=== PATIENT | female | born 1985 | race Caucasian/White ===

== ENCOUNTER 2016-04-23 00:25 | Emergency (ER) | payer OTHER ==
[~2016-04-23 00:25] MED LIST: ABILIFY5 M1 PO; ACETAMINOPHEN/O1 TAB PO; ADVAIR DISKU 11 UNIT INH; ADVAIR DISKUS 21 DSK INH; ADVAIR HFA 115/1 PUF INH; AFRIN PUMPMIST15 ML NASB; ALBUTEROL0.09 MG/A1 INH; ARIPIPRAZOLE5 M1 PO; CARAFATE 1GM1000 MG PO; CELECOXIB200 MG PO; CIPRO 250MG250 MG PO; CIPRO 500MG (E500 MG PO; CIPRO500 M1 PO; CIPROFLOXACIN250 M2 PO; CYCLOBENZAPRINE10 M1 PO; DELTASONE20 MG PO; DIAZEPAM5 M1 PO; DILAUDID2 M1 PO; ESCITALOPRAM20 MG PO; FIORICET 325 MG1 TAB PO; FLECTOR1 EACH TOP; FLEXERIL10 MG PO; GABAPENTIN100 M2 PO; IBU600 MG PO; LANSOPRAZOLE30 MG PO; LEVAQUIN500 MG PO; LIORESAL 10MG T10 MG PO; MACROBID100 MG PO; MEDROL DOSEPAK1 PAC PO; MOBIC 15MG15 MG PO; MOBIC15 M1 PO; MORPHINE SULFAT15 M3 PO; MOTRIN 600 MG600 MG PO; MOTRIN600 MG PO; MOTRIN800 MG PO; NAPROSYN500 M1 PO; NASONEX0.05 MG/Ac NASB; NASONEX17 GM NASB; NEURONTIN100 MG PO; NEURONTIN300 MG PO; NITROFURANTOIN100 M1 PO; NITROFURANTOIN100 M5 PO; NYSTATIN15 GM TOP; OMEPRAZOLE40 M1 PO; OXYCODONE HCL E20 MG PO; PERCOCET 325 MG1 TA2 PO; PERCOCET 325 MG1 TAB PO; PERCOCET 5-3251 EACH PO; PERCOCET 7.5-31 EACH PO; POLYMYXIN-B/TRI10 ML OS; POLYTRIM O200 GTT/BO TOP; PREDNISONE 20MG20 MG PO; PREDNISONE10 M2 PO; PREDNISONE20 M1 PO; PRILOSEC OTC20 MG PO; PROAIR RESPICL90 MCG PO; PYRIDIUM200 M1 PO; REGLAN10 M1 PO; ROBAXIN-750750 M1 PO; ROBITUSSIN W/CO10 ML PO; VIBRAMYCIN 100100 MG PO; VIBRAMYCIN100 MG PO; VICODIN 300 MG-1 TAB PO; VICODIN5-300 PO; ZITHROMAX Z-PA250 M1 PO; ZOFRAN ODT4 M1 SL; ZOFRAN4 M2 PO
--- NOTE | 2016-04-23 01:07 | ED GI/GU/ABDOMINAL COMPLAINT ---
See Addendum History of Present Illness General Chief Complaint: General Adult Stated Complaint: UTI? Source: patient Exam Limitations: no limitations Vital Signs & Intake/Output Vital Signs & Intake/Output Vital Signs Date Time Temp Pulse Resp B/P Pulse O2 O2 Flow FiO2 Ox Delivery Rate 04/23 0036 98.0 97 18 134/84 94 Room Air Allergies Coded Allergies: adhesive tape (Severe, ANAPHYLAXIS 03/09/16) amoxicillin (Severe, ANAPHYLAXIS 03/09/16) ampicillin (Severe, ANAPHYLAXIS 03/09/16) cefaclor (Severe, ANAPHYLAXIS 03/09/16) clavulanic acid (From AUGMENTIN) (Severe, ANAPHYLAXIS 03/09/16) clindamycin (Severe, ANAPHYLAXIS 03/09/16) latex (Severe, ANAPHYLAXIS 03/09/16) tobramycin (Severe, ANAPHYLAXIS 03/09/16) vancomycin (Severe, ANAPHYLAXIS 03/09/16) meloxicam (Intermediate, FACE SWELLING 03/09/16) morphine (Mild, HIVES 03/09/16) Penicillins (ANAPHYLAXIS 03/09/16) Reconcile Medications Albuterol Sulfate (Proair Respiclick) 90 MCG AER.POW.BA 2 PUFF PO Q4 HRS NEEDED PRN RESPIRATORY (Reported) Aripiprazole (Abilify) 5 MG TAB 1 TAB PO DAILY MENTAL HEALTH (Reported) Ciprofloxacin HCl (Cipro) 500 MG TABLET 1 TAB PO BID URINE/KIDNEY INFECTION Cyclobenzaprine HCl 10 MG TABLET 1 TAB PO TID PRN PAIN (Reported) Diazepam 5 MG TABLET 1 TAB PO BIDP PRN SPASMS (Reported) Escitalopram Oxalate 20 MG TABLET 1 TAB PO DAILY DEPRESSION (Reported) Gabapentin 100 MG CAPSULE 1 CAP PO TID NEUROPATHY (Reported) Metoclopramide HCl (Reglan) 10 MG TABLET 1 TAB PO TID PRN NAUSEA 30 minutes before meals and bedtime Mometasone Furoate (Nasonex) 50 MCG SPRAY.PUMP 2 SPRAY NASB DAILY RHINOSINUSITIS Morphine Sulfate (Morphine Sulfate ER) 15 MG TABLET.ER 1 TAB PO BID PAIN ( Reported) Omeprazole 40 MG CAPSULE.DR 1 CAP PO DAILY GERD Ondansetron (Zofran Odt) 4 MG TAB.RAPDIS 1 TAB SL TID PRN NAUSEA Oxycodone HCl/Acetaminophen (Percocet 7.5-325 MG Tablet) 1 EACH TABLET 1 TAB PO TID PAIN (Reported) Phenazopyridine HCl (Pyridium) 200 MG TABLET 1 TAB PO TID PRN BLADDER SPASMS Phenazopyridine HCl (Pyridium) 100 MG TABLET 1-2 TAB PO TID PRN dysuria Sulfamethoxazole/Trimethoprim (Bactrim Ds Tablet) 800 MG-160 MG TABLET 1 TAB PO BID uti Triage Note: FINISHED RX CIPRO 3 DAYS AGO AGAIN HAS UTI SX Triage Nurses Notes Reviewed? yes ? n Is pt currently ? No Onset: Gradual Duration: day(s): Timing: recent history Quality/Severity: burning Location: urinary urgency Radiation: no radiation Activities at Onset: pt straight cath's Prior Abdominal Problems: none Modifying Factors: Worsens With: urinating. Associated Symptoms: dysuria HPI: 30 yo woman w/ spina bifida who self-catheterizes herself, presents with dysuria. She notes that she completed a course of cipro 3-4 days ago. She notes that she has no fever, chills, abdominal discomfort. She is tolerating fluids. She notes a mild migraine headache and shares that she is due for her routine pain medications. She is otherwise well. Past History Travel History Traveled to [place] past 21 day No Medical History Any Pertinent Medical History? 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 No Review of Systems Review of Systems Constitutional: Reports: no symptoms. EENTM: Reports: no symptoms. Respiratory: Reports: no symptoms. Cardiovascular: Reports: no symptoms. GI: Reports: no symptoms. Genitourinary: Reports: no symptoms. Musculoskeletal: Reports: no symptoms. Skin: Reports: no symptoms. Neurological/Psychological: Reports: no symptoms. Hematologic/Endocrine: Reports: no symptoms. Immunologic/Allergic: Reports: no symptoms. All Other Systems: Reviewed and Negative Physical Exam Physical Exam General Appearance: well developed/nourished, no apparent distress Head: atraumatic, normal appearance Eyes: Bilateral: normal appearance. Ears, Nose, Throat, Mouth: hearing grossly normal Neck: normal inspection, supple, full range of motion Respiratory: normal breath sounds, chest non-tender, no respiratory distress, quiet respiration, lungs clear Cardiovascular: regular rate/rhythm Gastrointestinal: normal bowel sounds, soft, non-tender Back: normal inspection, no vertebral tenderness Extremities: c/w paralysis Neurologic/Psych: no motor/sensory deficits, awake, alert, oriented x 3 Skin: intact, normal color, warm/dry Core Measures ACS in differential dx? No Severe Sepsis Present: No Septic Shock Present: No Progress Differential Diagnosis: UTI/pyelo, vs other Plan of Care: Orders Procedure Date/time Status Add-on Test (ER Only) 04/23 130 Active URINE 04/23 26 Complete URINALYSIS 04/23 26 Complete Current Medications Sig/Jorge A Start time Last Medication Dose Stop Time Status Admin Phenazopyridine HCl 200 MG ONCE ONE 04/235 UNVr (Pyridium) 04/23 014 Promethazine HCl 25 MG ONCE ONE 04/23 0145 UNVr (Phenergen) 04/23 0146 Trimethoprim/ 1 TAB ONCE ONE 04/23 144 UNVr Sulfamethoxazole 04/23 145 (Bactrim DS) Laboratory Tests 04/23/16 0110: Urine Color YEL, Urine Clarity CLDY H, Urine pH 6.0, Ur Specific [place] 1.025, Urine Protein TRACE H, Urine Ketones NEG, Urine Nitrite NEG, Urine Bilirubin NEG, Urine Urobilinogen 2.0 H, Ur Leukocyte Esterase MOD H, Ur Microscopic SEDIMENT EXAMINED, Urine RBC RARE, Urine WBC 25-50 H, Ur Epithelial Cells PACKD H, Urine Hemoglobin TRACE-INTACT, Urine Glucose NEG, Urine Test NEGATIVE Initial ED EKG: none Departure Departure Disposition: HOME OR SELF CARE Condition: Stable Clinical Impression Primary Impression: UTI (urinary tract infection) Referrals: GABRIELLE ALLISON MD (PCP/Family) Referred to [facility] as new patient No Departure Forms: Customer Survey General Discharge Information Prescriptions: Current Visit Scripts Sulfamethoxazole/Trimethoprim (Bactrim Ds Tablet) 1 TAB PO BID #20 TAB Phenazopyridine HCl (Pyridium) 1-2 TAB PO TID PRN dysuria #10 TAB Ref 1 Ondansetron (Zofran Odt) 1 TAB SL TID PRN NAUSEA #10 TAB Ref 4 Comments 04/23/16, 1:48am... pt feeling well... urine suggestive of infection, but she has no fever, is otherwise well. will give bactrim, close follow up advised. urine culture added to orderes. encouraged pt to follow up with her pmd. if not better, given her recurrence, she may require iv abx.... pt wishes to defer blood work and go home.
[2016-04-23] MEDS ORDERED: PYRIDIUM100 M1 PO (01:33)
[2016-04-23] MEDS ORDERED: BACTRIM DS TAB1 EACH PO (01:33)
[2016-04-23] MEDS ORDERED: ZOFRAN ODT4 M1 SL (01:44)
[2016-04-23 01:59] VITALS: BP 142/89
[2016-06-05] MEDS ORDERED: ESCITALOPRAM OX20 MG PO (14:42)
[2016-06-05] MEDS ORDERED: CIPRO500 M1 PO (14:43)
[2016-06-05] MEDS ORDERED: OMEPRAZOLE40 M1 PO (14:44)
[2016-06-05] MEDS ORDERED: VALIUM5 M2 PO (14:44)
[2016-06-05] MEDS ORDERED: IBUPROFEN800 M1 PO (14:47)
== END 2016-04-23 02:05 ==
LOC: ERH 00:25
DX: N39.0 Urinary tract infection, site not specified (principal)
CPT/HCPCS: 81001; 81025; 87086; 87088; 96372; J2550; J3101

== ENCOUNTER 2016-05-09 13:24 | Emergency (ER) | payer OTHER ==
[~2016-05-09] VITALS: Ht 152.4 cm; Wt 99.8 kg
[~2016-05-09 13:24] MED LIST changes: +BACTRIM DS TAB1 EACH PO; +PYRIDIUM100 M1 PO
--- NOTE | 2016-05-09 15:56 | ED CARDIAC/CP/PALPITATIONS ---
History of Present Illness General Chief Complaint: Chest Pain Stated Complaint: CP AND L ARM NUMBNESS Allergies Coded Allergies: adhesive tape (Severe, ANAPHYLAXIS 03/09/16) amoxicillin (Severe, ANAPHYLAXIS 03/09/16) ampicillin (Severe, ANAPHYLAXIS 03/09/16) cefaclor (Severe, ANAPHYLAXIS 03/09/16) clavulanic acid (From AUGMENTIN) (Severe, ANAPHYLAXIS 03/09/16) clindamycin (Severe, ANAPHYLAXIS 03/09/16) latex (Severe, ANAPHYLAXIS 03/09/16) tobramycin (Severe, ANAPHYLAXIS 03/09/16) vancomycin (Severe, ANAPHYLAXIS 03/09/16) meloxicam (Intermediate, FACE SWELLING 03/09/16) morphine (Mild, HIVES 03/09/16) Penicillins (ANAPHYLAXIS 03/09/16) Reconcile Medications Albuterol Sulfate (Proair Respiclick) 90 MCG AER.POW.BA 2 PUFF PO Q4 HRS NEEDED PRN RESPIRATORY (Reported) Aripiprazole (Abilify) 5 MG TAB 1 TAB PO DAILY MENTAL HEALTH (Reported) Cyclobenzaprine HCl 10 MG TABLET 1 TAB PO TID PRN PAIN (Reported) Diazepam 5 MG TABLET 1 TAB PO BIDP PRN SPASMS (Reported) Escitalopram Oxalate 20 MG TABLET 1 TAB PO DAILY DEPRESSION (Reported) Gabapentin 100 MG CAPSULE 1 CAP PO TID NEUROPATHY (Reported) Metoclopramide HCl (Reglan) 10 MG TABLET 1 TAB PO TID N/V (Reported) 30 minutes before meals and bedtime Mometasone Furoate (Nasonex) 50 MCG SPRAY.PUMP 2 SPRAY NASB DAILY RHINOSINUSITIS Morphine Sulfate (Morphine Sulfate ER) 15 MG TABLET.ER 1 TAB PO BID PAIN ( Reported) Omeprazole 40 MG CAPSULE.DR 1 CAP PO DAILY GERD Ondansetron (Zofran Odt) 4 MG TAB.RAPDIS 1 TAB SL TID N/V (Reported) Oxycodone HCl/Acetaminophen (Percocet 7.5-325 MG Tablet) 1 EACH TABLET 1 TAB PO TID PAIN (Reported) Triage Note: 30 Y/O FEMALE C/O CHEST PAIN AND L ARM "NUMBNESS" X 20 MIN. ALSO C/O "DIZZINESS". EKG IN PROGRESS. : No Patient currently breastfeeds: No (SHARRI BANERJEE,SHILA) General Source: patient, family Exam Limitations: no limitations Vital Signs & Intake/Output Vital Signs & Intake/Output Vital Signs Date Time Temp Pulse Resp B/P Pulse O2 O2 Flow FiO2 Ox Delivery Rate 05/09 1938 96.8 76 18 1142/76 94 Room Air 05/09 1727 96 Room Air 05/09 1335 97.7 91 18 117/79 96 Room Air ED Intake and Output 05/10 0000 05/09 1200 Intake Total 0 Output Total Balance 0 Intake, IV 0 Patient 220 lb Weight Triage Nurses Notes Reviewed? yes HPI: This is a 30-year-old female presented to the emergency department with chief complaint of chest pain. She complains of chest pain that started this morning, substernal, 10 out of 10, sharp pain, radiating to left jaw, left neck and left arm. Chest pain is associated with shortness of breath, sweating, diaphoresis. Denies racing of heart. Chest pain associated with dizziness and lightheadedness, nausea. She denied any episode of vomiting. She denied any fever, chills, shortness of breath, racing of heart, vomiting, abdominal pain. 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 see below for history Surgical History Surgical History: none Family History Hx Contributory? Yes (RAMSES HORN MD) Review of Systems Review of Systems Constitutional: Denies: chills, diaphoresis, fever, malaise, weakness, unexplained weight loss. EENTM: Denies: double vision, visual changes. Respiratory: Reports: short of breath. Denies: cough, hemoptysis, orthopnea, sputum production, stridor, wheezing. Cardiovascular: Reports: chest pain. Denies: edema, orthopena, palpitations, peripheral edema, syncope. GI: Reports: nausea. Denies: abdominal pain, diarrhea, distention, vomiting. Genitourinary: Denies: dysuria, frequency, pain. Musculoskeletal: Denies: joint pain. (RAMSES HORN MD) Physical Exam Physical Exam General Appearance: well developed/nourished Head: atraumatic, normal appearance Respiratory: normal breath sounds Cardiovascular: regular rate/rhythm Gastrointestinal: normal bowel sounds, soft, non-tender Extremities: no edema Core Measures ACS in differential dx? No Severe Sepsis Present: No Septic Shock Present: No (RAMSES HORN MD) Progress Hand-Off Endorsed To: ELADIO CHOI MD Endorsed Time: 1706 Pending: labs (SHARRI BANERJEE,SHILA) Differential Diagnosis: PUD/GERD, unstable angina Plan of Care: Orders Procedure Date/time Status TROPONIN LEVEL 05/09 1952 Complete EKG 05/09 1952 Active TROPONIN LEVEL 05/09 160 Complete COMPREHENSIVE METABOLIC PANEL 05/09 1606 Complete CBC WITHOUT DIFFERENTIAL 05/09 160 Complete EKG 05/09 1325 Active Laboratory Tests 05/09/16 2019: Troponin I < 0.01 05/09/16 1758: Anion Gap 11, Estimated GFR > 60, BUN/Creatinine Ratio 25.0, Glucose 76, Calcium 9.3, Total Bilirubin 0.7, AST 29, ALT 29, Alkaline Phosphatase 89, Troponin I < 0.01, Total Protein 7.3, Albumin 4.0, Globulin 3.3, Albumin/Globulin Ratio 1.2, RBC 4.60, MCV 84.1, MCH 27.8, RDW 15.3 H, MPV 6.0 L, Gran % 63.0, Lymphocytes % 29.6, Monocytes % 5.0, Eosinophils % 1.9, Basophils % 0.5, Absolute Granulocytes 3.5, Absolute Lymphocytes 1.7, Absolute Monocytes 0.3, Absolute Eosinophils 0.1, Absolute Basophils 0, PUBS MCHC 33.1 Initial ED EKG: normal axis, normal intervals, normal p-waves, normal QRS complex, normal sinus rhythm, NSR (RAMSES HORN MD) Diagnostic Imaging: Viewed by Me: Radiology Read. Discussed w/RAD: Radiology Read. CXR Impression: PATIENT: HUGO NIELSEN PRESENT AGE: 30 PATIENT ACCOUNT NO: [id number] : 86 LOCATION: [facility] ORDERING PHYSICIAN: SHILA SABILLON MD SERVICE DATE: 05/09/16 EXAM TYPE: RAD - XRY -CHEST XRAY, PA AND LATERAL EXAMINATION: XR CHEST CLINICAL INFORMATION: Chest pain. Shortness of breath. COMPARISON: Chest x-ray 02/10/2016 TECHNIQUE: PA and lateral views of the chest were obtained. FINDINGS: Howell rods in dorsal spine. Ventriculoperitoneal shunt catheter over the right chest. Lungs are clear. No pulmonary vascular congestion or pleural effusion. Cardiac and mediastinal contour are normal. Heart size is normal. IMPRESSION: No acute abnormality of the chest. DICTATED BY: TABATHA LANGSTON MD DATE/TIME DICTATED:1649 PLUMBING ASSEMBLER:HUSSEIN DATE/TIME TRANSCRIBED:05/09/161649 CONFIDENTIAL, DO NOT COPY WITHOUT APPROPRIATE AUTHORIZATION. <Electronically signed in Other Vendor System> SIGNED BY: TABATHA LANGSTON MD 05/09/161654 ([facility]) Comments: 05/09/2016 6:01:17 PM patient signed out to me by Dr. Sabillon. Chest pain evaluation ongoing. 05/09/2016 8:23:16 PM patient signed out to Dr. Guerra. (JIMBO BANERJEE,ELADIO Cardona) Departure Departure Condition: Stable Referrals: GABRIELLE ALLISON MD (PCP/Family) Departure Forms: Customer Survey General Discharge Information Resident Co-Sign Statement Statement: ED Attending supervision documentation- [X] I saw and evaluated the patient. I have also reviewed all the pertinent lab results and diagnostic results. I agree with the findings and the plan of care as documented in the Resident's documentation. [X] I have reviewed the ED Record and agree with the Resident's documentation. [] Additions or exceptions (if any) to the Resident's note and plan are summarized below: [] (SHARRI BANERJEE,SHILA) Departure Disposition: HOME OR SELF CARE Clinical Impression Primary Impression: Chest pain Comments 05/09/2016 7:10:29 PM This patient was not seen by DENISE Abernathy ([facility]) Departure Additional Instructions: FOLLOW UP WITH DR. ESTEFANY TURNER IF SYMPTOMS WORSEN OR FOR ANY CONCERNS (SHAWANDA BANERJEE,SHIRA Link) Critical Care Note Critical Care Note Critical Care Time: non-applicable (SHARRI BANERJEE,SHILA) Critical Care Note Critical Care Time: 30-74 min (RAMSES HORN MD) ED Attending Observation Initial Observation Note: I have seen and personally examined HUGO NIELSEN on 05/09/16 at 1712. I agree with the current emergency department documentation. The disposition (admission or discharge) is uncertain at this time, she needs a period of observation for the following reason(s): The ED Nurse caring for this patient has been personally informed as to what the patient is being observed for. (RAMSES HORN MD)
--- NOTE | 2016-05-09 16:55 | RADIOLOGY REPORT ---
EXAMINATION: XR CHEST CLINICAL INFORMATION: Chest pain. Shortness of breath. COMPARISON: Chest x-ray 02/10/2016 TECHNIQUE: PA and lateral views of the chest were obtained. FINDINGS: Howell rods in dorsal spine. Ventriculoperitoneal shunt catheter over the right chest. Lungs are clear. No pulmonary vascular congestion or pleural effusion. Cardiac and mediastinal contour are normal. Heart size is normal. IMPRESSION: No acute abnormality of the chest.
[2016-05-09 18:10] LABS: ABSOLUTE BASOPHIL COUNT 0 /CUMM (0.0-0.2); ABSOLUTE EOSINOPHIL COUNT 0.1 /CUMM (0.0-0.7); ABSOLUTE GRANULOCYTE CT 3.5 /CUMM (1.4-6.5); ABSOLUTE LYMPH COUNT 1.7 /CUMM (1.2-3.4); ABSOLUTE MONOCYTE COUNT 0.3 /CUMM (0.10-0.60); BASOPHIL % 0.5 % (0.0-2.0); EOSINOPHIL % 1.9 % (0-5); HEMATOCRIT 38.7 % (37-47); MEAN CORPUSCULAR HGB 27.8 PG (27.0-31.0); MEAN CORPUSCULAR HGB CONC 33.1 G/DL (33.0-37.0); MEAN CORPUSCULAR VOLUME 84.1 FL (81.0-99.0); PLATELET COUNT 257 /CUMM (130-400); RBC DISTRIBUTION WIDTH 15.3 % (11.5-14.5); WHITE BLOOD CELL COUNT 5.6 /CUMM (4.8-10.8)
[2016-05-09] MEDS ORDERED: REGLAN10 M1 PO (19:20)
[2016-05-09] MEDS ORDERED: ZOFRAN ODT4 M1 SL (19:20)
[2016-05-09 19:38] VITALS: BP 1142/76
[2016-06-05] MEDS ORDERED: ESCITALOPRAM OX20 MG PO (14:42)
[2016-06-05] MEDS ORDERED: CIPRO500 M1 PO (14:43)
[2016-06-05] MEDS ORDERED: VALIUM5 M2 PO (14:44)
[2016-06-05] MEDS ORDERED: OMEPRAZOLE40 M1 PO (14:44)
[2016-06-05] MEDS ORDERED: IBUPROFEN800 M1 PO (14:47)
== END 2016-05-09 21:44 ==
LOC: ERH 13:24
PROVIDERS: Emergency Medicine
DX: R07.9 Chest pain, unspecified (principal); R20.0 Anesthesia of skin; R42 Dizziness and giddiness; M54.2 Cervicalgia; R11.0 Nausea
CPT/HCPCS: 93005; 93010; 96372; J1885

== ENCOUNTER 2016-06-02 13:08 | Emergency (ER) | payer OTHER ==
[~2016-06-02] VITALS: Ht 152.4 cm; Wt 99.8 kg
[2016-06-02] MEDS ORDERED: HYDROXYZINE HCL25 M2 PO (13:39)
--- NOTE | 2016-06-02 14:01 | ED DYSPNEA/ASTHMA COMPLAINT ---
History of Present Illness General Chief Complaint: General Adult Stated Complaint: "WANTS A NEBULIZER" Source: patient Exam Limitations: no limitations Vital Signs & Intake/Output Vital Signs & Intake/Output Vital Signs Date Time Temp Pulse Resp B/P Pulse O2 O2 Flow FiO2 Ox Delivery Rate 06/02 1423 98.0 74 106/78 06/02 1352 98 06/02 1338 Room Air Room Air 06/02 1321 98.1 78 20 100/80 96 Room Air Allergies Coded Allergies: adhesive tape (Severe, ANAPHYLAXIS 06/02/16) amoxicillin (Severe, ANAPHYLAXIS 06/02/16) ampicillin (Severe, ANAPHYLAXIS 06/02/16) cefaclor (Severe, ANAPHYLAXIS 06/02/16) clavulanic acid (From AUGMENTIN) (Severe, ANAPHYLAXIS 06/02/16) clindamycin (Severe, ANAPHYLAXIS 06/02/16) latex (Severe, ANAPHYLAXIS 06/02/16) tobramycin (Severe, ANAPHYLAXIS 06/02/16) vancomycin (Severe, ANAPHYLAXIS 06/02/16) meloxicam (Intermediate, FACE SWELLING 06/02/16) morphine (Mild, HIVES 06/02/16) Penicillins (ANAPHYLAXIS 06/02/16) Triage Note: C/O DIFFICULTY BREATHING X 1 WEEK, WORSE TODAY. ALBUTEROL INHALER NOT HELPING. Triage Nurses Notes Reviewed? yes : No Patient currently breastfeeds: No HPI: This patient is a 30-year-old female who presented to the emergency department today accompanied by her significant other for shortness of breath. She reported that the shortness of breath has been intermittent times one week. She denied any palpitations, jaw pain, arm pain, numbness or tingling in her extremities. She reported that she does have asthma, but her inhalers at home have not been working. She denied any fevers, chills, abdominal pain, nausea, vomiting, unilateral leg swelling or erythema, any exogenous estrogen use/ control. The patient reported that she did have a blood clot when she was a baby. No recent trauma. The patient is wheelchair-bound due to spina bifida. (MARIUM RIVERS,MYLENE) Reconcile Medications Albuterol Sulfate (Proair Respiclick) 90 MCG AER.POW.BA 2 PUFF PO Q4 HRS NEEDED PRN RESPIRATORY (Reported) Aripiprazole (Abilify) 5 MG TABLET 1 TAB PO DAILY ANXIETY/DEPRESSION ( Reported) Ciprofloxacin HCl (Cipro) 500 MG TABLET 1 TAB PO BID ANTIBIOTIC (Reported) Diazepam (Valium) 5 MG TABLET 1 TAB PO BID PRN ANXIETY (Reported) Escitalopram Oxalate 20 MG TABLET 1 TAB PO DAILY ANXIETY/DEPRESSION (Reported ) Gabapentin 100 MG CAPSULE 1 CAP PO TID NEUROPATHY (Reported) Hydroxyzine HCl 25 MG TABLET 1 TAB PO TID ANXIETY/DEPRESSION (Reported) Ibuprofen 800 MG TABLET 1 TAB PO BID PAIN (Reported) Methylprednisolone. (Medrol) 4 MG TAB.DS.PK 1 DP PO AD PRN shortness of breath 6 on day 1 then reduce by one tablet daily until gone Metoclopramide HCl (Reglan) 10 MG TABLET 1 TAB PO TID N/V (Reported) 30 minutes before meals and bedtime Mometasone Furoate (Nasonex) 50 MCG SPRAY.PUMP 2 SPRAY NASB DAILY RHINOSINUSITIS Morphine Sulfate (Morphine Sulfate ER) 15 MG TABLET.ER 1 TAB PO BID PAIN ( Reported) Omeprazole 40 MG CAPSULE.DR 1 CAP PO DAILY GERD (Reported) Ondansetron (Zofran Odt) 4 MG TAB.RAPDIS 1 TAB SL TID N/V (Reported) Oxycodone HCl/Acetaminophen (Percocet 7.5-325 MG Tablet) 1 EACH TABLET 1 TAB PO TID PAIN (Reported) (SHARRI BANERJEE,SHILA) Past History Travel History Traveled to [place] past 21 day No Medical History Any Pertinent Medical History? 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 No (MARIUM RIVERS,MYLENE) Review of Systems Review of Systems Constitutional: Reports: no symptoms. EENTM: Reports: no symptoms. Respiratory: Reports: see HPI. Cardiovascular: Reports: no symptoms. GI: Reports: no symptoms. Genitourinary: Reports: no symptoms. Musculoskeletal: Reports: no symptoms. Skin: Reports: no symptoms. Neurological/Psychological: Reports: no symptoms. All Other Systems: Reviewed and Negative (MYLENE CAUSEY PA-C) Physical Exam Physical Exam Respiratory: normal breath sounds, NO WHEEZES, RALES, OR RHONCHI. 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 nO RESPIRATORY DISTRESS. nO ACCESSORY MUSCLE USAGE. nO DECREASED BREATH SOUNDS OR STRIDOR. Comments: Well-developed well-nourished person in no acute distress HEENT: Normal EENT exam, head normocephalic, moist mucous membranes Pupils equally round and reactive to light. Neck: Supple, no lymphadenopathy Back: Normal inspection Cardiovascular: Regular rate and rhythm with no murmurs, rubs, or gallops Abdomen: Soft, nontender and nondistended Extremity: Normal and equal pulses. Neuro: Alert oriented x3, cranial nerves II through XII grossly intact. Skin: No appreciable rash on exposed skin, skin is warm and dry. Psych: Mood and affect is normal Core Measures ACS in differential dx? Yes Severe Sepsis Present: No Septic Shock Present: No (MYLENE CAUSEY PA-C) Progress Differential Diagnosis: asthma, AMI, bronchitis, costochondritis, CHF, COPD, pericarditis, pulmonary embolism, pneumonia, unstable angina Plan of Care: Orders Procedure Date/time Status TROPONIN LEVEL 06/02 1419 Complete D-DIMER 06/02 1346 Complete COMPREHENSIVE METABOLIC PANEL 06/02 1346 Complete CBC WITHOUT DIFFERENTIAL 06/02 1346 Complete Current Medications Sig/Jorge A Start time Last Medication Dose Stop Time Status Admin Ketorolac 60 MG ONCE ONE 06/02 1530 UNVr Tromethamine 06/02 1531 (Toradol) Laboratory Tests 06/02/16 1419: Anion Gap 10, Estimated GFR > 60, BUN/Creatinine Ratio 24.0, Glucose 98, Calcium 9.1, Total Bilirubin 0.6, AST 16, ALT 25, Alkaline Phosphatase 91, Troponin I < 0.01, Total Protein 7.0, Albumin 3.9, Globulin 3.1, Albumin/Globulin Ratio 1.3, D-Dimer < 200, CBC w Diff NO MAN DIFF REQ, RBC 4.51, MCV 81.8, MCH 28.1, RDW 14.7 H, MPV 5.7 L, Gran % 60.9, Lymphocytes % 30.8, Monocytes % 6.2, Eosinophils % 1.8, Basophils % 0.3, Absolute Granulocytes 3.8, Absolute Lymphocytes 1.9, Absolute Monocytes 0.4, Absolute Eosinophils 0.1, Absolute Basophils 0, PUBS MCHC 34.3 06/02/16 1402: Troponin I Cancelled Initial ED EKG: none Comments: 06/02/2016 3:20:45 PM: I was at the patient's bedside for reevaluation. Updated her on her laboratory results. D-dimer not elevated. Troponin I elevated. No increase in white blood cell count. Patient received a DuoNeb treatment. Discussed with this patient and importance of holding up with her airbrush painter and primary care physician. She is receiving an IM shot of Toradol here in the emergency department. The patient's boyfriend reported that she does have a component of anxiety and thinks that this may be what is causing her difficulty breathing. They refused chest x-ray at this time due to, "a lot of radiation over the last week." (MYLENE CAUSEY PA-C) Departure Departure Disposition: HOME OR SELF CARE Condition: Stable Clinical Impression Primary Impression: Shortness of breath Referrals: ESTEFANY BANERJEE,GABRIELLE (PCP/Family) Additional Instructions: Take Medrol Dosepak as prescribed. Please follow up with both your airbrush painter and primary care physician. Return to the emergency department for any worsening symptoms or concerns. Departure Forms: Customer Survey General Discharge Information Prescriptions: Current Visit Scripts Methylprednisolone. (Medrol) 1 DP PO AD PRN shortness of breath #1 DP 6 on day 1 then reduce by one tablet daily until gone (MYLENE CAUSEY PA-C) PA/STRATEGIES ANALYST Co-Sign Statement Statement: ED Attending supervision documentation- [] I saw and evaluated the patient. I have also reviewed all the pertinent lab results and diagnostic results. I agree with the findings and the plan of care as documented in the PA's/STRATEGIES ANALYST's documentation. [X] I have reviewed the ED Record and agree with the PA's/STRATEGIES ANALYST's documentation. [] Additions or exceptions (if any) to the PAs/STRATEGIES ANALYST's note and plan are summarized below: [] (SHARRI BANERJEE,SHILA) Critical Care Note Critical Care Note Critical Care Time: non-applicable (MYLENE ACUSEY PA-C)
[2016-06-02 14:23] VITALS: BP 106/78
[2016-06-02 14:28] LABS: ABSOLUTE BASOPHIL COUNT 0 /CUMM (0.0-0.2); ABSOLUTE EOSINOPHIL COUNT 0.1 /CUMM (0.0-0.7); ABSOLUTE GRANULOCYTE CT 3.8 /CUMM (1.4-6.5); ABSOLUTE LYMPH COUNT 1.9 /CUMM (1.2-3.4); ABSOLUTE MONOCYTE COUNT 0.4 /CUMM (0.10-0.60); BASOPHIL % 0.3 % (0.0-2.0); EOSINOPHIL % 1.8 % (0-5); GRANULOCYTE % 60.9 % (42.2-75.2); HEMATOCRIT 36.9 % (37-47); MEAN CORPUSCULAR HGB 28.1 PG (27.0-31.0); MEAN CORPUSCULAR HGB CONC 34.3 G/DL (33.0-37.0); MEAN CORPUSCULAR VOLUME 81.8 FL (81.0-99.0); MEAN PLATELET VOLUME 5.7 FL (7.4-10.4); PLATELET COUNT 231 /CUMM (130-400); RBC DISTRIBUTION WIDTH 14.7 % (11.5-14.5); RED BLOOD CELL CT 4.51 /CUMM (4.20-5.40); WHITE BLOOD CELL COUNT 6.3 /CUMM (4.8-10.8)
[2016-06-02] MEDS ORDERED: MEDROL4 M2 PO (15:23)
[2016-06-05] MEDS ORDERED: ESCITALOPRAM OX20 MG PO (14:42)
[2016-06-05] MEDS ORDERED: CIPRO500 M1 PO (14:43)
[2016-06-05] MEDS ORDERED: OMEPRAZOLE40 M1 PO (14:44)
[2016-06-05] MEDS ORDERED: VALIUM5 M2 PO (14:44)
[2016-06-05] MEDS ORDERED: IBUPROFEN800 M1 PO (14:47)
== END 2016-06-02 15:41 ==
LOC: ERH 13:08
PROVIDERS: Physician Assistant
DX: R06.02 Shortness of breath (principal); Q05.9 Spina bifida, unspecified
CPT/HCPCS: 1263; 96372; J1885

== ENCOUNTER → 2016-06-06 | Day surgery (SDC) | payer OTHER ==
[~2016-06-06] VITALS: Ht 152.4 cm; Wt 99.8 kg
[~2016-06-06] MED LIST changes: +ALBUTEROL2.5 MG/3 M INH/SOL; +CIPRO250 M1 PO; +ESCITALOPRAM OX20 MG PO; +HYDROXYZINE HCL25 M2 PO; +IBUPROFEN800 M1 PO; +KETOROLAC TROME10 M1 PO; +MEDROL4 M2 PO; +NORCO 5-325 TA1 EACH PO; +NUCYNTA50 M1 PO; +Nebulizer machine; +OXYCODONE-ACET1 EAC1 PO; +PREDNISOLO15 MG/5 M4 PO; +PROAIR HFA8.5 GM INH; +VALIUM5 M2 PO; +nebulizer machine
--- NOTE | 2016-06-06 11:01 | Operative Report ---
Operative/Inv Procedure Report Surgery Date: 06/06/16 Name of Procedure: Right renal ESWL. Fluoroscopy. Pre-Operative Diagnosis: Same Post-Operative Diagnosis: Same Estimated Blood Loss: none Surgeon/Dispatcher Service: NAOMI VALLE MD Anesthesia: moderate sedation Complications: None Operative/Procedure Note Note: The patient was taken to the operating room and placed on the ESWL table in supine position. The patient's right flank was positioned over the table cut- out overlying the dome of the treatment head. Timeout was performed, with the patient awake, in order to confirm the correct identity, side, anesthesia, procedure and other pertinent roxana-operative information. The patient was then anesthesized. Once the patient was adequately sedated, fluoroscopy, as well as Renal ultrasound was used to locate the right renal stone. Renal US was used to confirm the placement of the stone, and measured it to be approximately 6 mm in size at the right renal pelvis. Additionally, renal U/S revealed no hydronephrosis, and no solid tumor. With the stone's position optimized, using AP and oblique fluoroscopy views, the right renal E.S.W.L. was initiated at low energy level. After noting the patient's tolerance to the shockwaves, the intensitiy was ramped up to maximum level. At the end of the procedure, the composition of the right renal stone had changed significantly, indicating the shattering of the renal stone. Of note, a total of 2500 shockwaves were delivered to the stones. The patient tolerated the ESWL procedure well, was awakened, then taken to recovery in satisfactory condition via stretcher. The patient was dischared home with pain medications, diet orders, and intructions to catch fragments by straining the urine. The patient to to have follow-up renal ultrasound and KUB in 1 to 2 weeks, prior to follow-up visit in my office. Discharge Disposition: Same Day Admissions CC: NAOMI VALLE MD
== END ==
LOC: STS 02:23
DX: N20.0 Calculus of kidney (principal); R33.9 Retention of urine, unspecified; J45.909 Unspecified asthma, uncomplicated; Q05.9 Spina bifida, unspecified; Z99.3 Dependence on wheelchair
CPT/HCPCS: 36415; 81025; J2250; J2405

== ENCOUNTER 2016-06-09 19:47 | Emergency (ER) | payer OTHER ==
[~2016-06-09] VITALS: Ht 152.4 cm; Wt 99.8 kg
[~2016-06-09 19:47] MED LIST changes: -ALBUTEROL2.5 MG/3 M INH/SOL; -CIPRO250 M1 PO; -KETOROLAC TROME10 M1 PO; -NORCO 5-325 TA1 EACH PO; -NUCYNTA50 M1 PO; -Nebulizer machine; -OXYCODONE-ACET1 EAC1 PO; -PREDNISOLO15 MG/5 M4 PO; -PROAIR HFA8.5 GM INH; -nebulizer machine
--- NOTE | 2016-06-09 20:18 | ED GI/GU/ABDOMINAL COMPLAINT ---
History of Present Illness General Chief Complaint: General Adult Stated Complaint: PT IS HERE TO CHECK HER RIGHT SIDE IS SWOLLEN Source: patient Exam Limitations: no limitations Vital Signs & Intake/Output Vital Signs & Intake/Output Vital Signs Date Time Temp Pulse Resp B/P Pulse O2 O2 Flow FiO2 Ox Delivery Rate 06/096 98.9 74 16 134/65 98 Room Air 06/09 2008 97.6 91 18 94/56 96 Room Air ED Intake and Output 06/10 0000 06/09 1200 Intake Total 0 Output Total Balance 0 Intake, Oral 0 Patient 220 lb Weight Allergies Coded Allergies: adhesive tape (Severe, ANAPHYLAXIS 06/02/16) amoxicillin (Severe, ANAPHYLAXIS 06/02/16) ampicillin (Severe, ANAPHYLAXIS 06/02/16) cefaclor (Severe, ANAPHYLAXIS 06/02/16) clavulanic acid (From AUGMENTIN) (Severe, ANAPHYLAXIS 06/02/16) clindamycin (Severe, ANAPHYLAXIS 06/02/16) latex (Severe, ANAPHYLAXIS 06/02/16) tobramycin (Severe, ANAPHYLAXIS 06/02/16) vancomycin (Severe, ANAPHYLAXIS 06/02/16) meloxicam (Intermediate, FACE SWELLING 06/02/16) morphine (Mild, HIVES 06/02/16) Penicillins (ANAPHYLAXIS 06/02/16) propofol (GI UPSET 06/09/16) Reconcile Medications Albuterol Sulfate (Proair Respiclick) 90 MCG AER.POW.BA 2 PUFF PO Q4 HRS NEEDED PRN RESPIRATORY (Reported) Aripiprazole (Abilify) 5 MG TABLET 1 TAB PO DAILY ANXIETY/DEPRESSION ( Reported) Ciprofloxacin HCl (Cipro) 250 MG TABLET 1 TAB PO DAILY PROPHYLAXIS (Reported) Ciprofloxacin HCl (Cipro) 500 MG TABLET 1 TAB PO BID ANTIBIOTIC (Reported) Diazepam (Valium) 5 MG TABLET 1 TAB PO BID PRN ANXIETY (Reported) Escitalopram Oxalate 20 MG TABLET 1 TAB PO DAILY ANXIETY/DEPRESSION (Reported ) Gabapentin 100 MG CAPSULE 1 CAP PO TID NEUROPATHY (Reported) Hydroxyzine HCl 25 MG TABLET 1 TAB PO TID ANXIETY/DEPRESSION (Reported) Ibuprofen 800 MG TABLET 1 TAB PO BID PAIN (Reported) Metoclopramide HCl (Reglan) 10 MG TABLET 1 TAB PO TID N/V (Reported) 30 minutes before meals and bedtime Mometasone Furoate (Nasonex) 50 MCG SPRAY.PUMP 2 SPRAY NASB DAILY RHINOSINUSITIS Morphine Sulfate (Morphine Sulfate ER) 15 MG TABLET.ER 1 TAB PO BID PAIN ( Reported) Ondansetron (Zofran Odt) 4 MG TAB.RAPDIS 1 TAB SL TID N/V (Reported) Oxycodone HCl/Acetaminophen (Percocet 7.5-325 MG Tablet) 1 EACH TABLET 1 TAB PO TID PAIN (Reported) Triage Note: PT TO ED C/O RT SIDE ABD SWELLING WITH PAIN TODAY. PT HAD LITHOTRIPSY ON SUNDAY FOR KIDNEY STONE OF SAME SIDE. N/V ON SUNDAY. DR SINGH IN TO SEE PT IN TRIAGE Triage Nurses Notes Reviewed? yes ? n Is pt currently ? No Onset: Gradual Duration: day(s):, waxing and waning Timing: recent history Quality/Severity: moderate Location: right flank Radiation: no radiation Activities at Onset: patient had lithotripsy 3 days ago Prior Abdominal Problems: none Modifying Factors: Worsens With: vomiting. Associated Symptoms: abdominal pain, nausea/vomiting HPI: 30 yo woman s/p right sided lithotripsy 3 days ago, now presents with right sided flank pain. She knows, "it feels like might of a kidney stone there.... They said that a might start getting pain a few days later." She notes nausea but no vomiting or diarrhea or fever. Her boyfriend stated that he was given a prescription for Vicodin that he had not yet filled. She is otherwise well and has no other concerns. Past History Travel History Traveled to [place] past 21 day No Medical History Any Pertinent Medical History? 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 No Review of Systems Review of Systems Constitutional: Reports: no symptoms. EENTM: Reports: no symptoms. Respiratory: Reports: no symptoms. Cardiovascular: Reports: no symptoms. GI: Reports: no symptoms. Genitourinary: Reports: no symptoms. Musculoskeletal: Reports: no symptoms. Skin: Reports: no symptoms. Neurological/Psychological: Reports: no symptoms. Hematologic/Endocrine: Reports: no symptoms. Immunologic/Allergic: Reports: no symptoms. All Other Systems: Reviewed and Negative Physical Exam Physical Exam General Appearance: well developed/nourished, mild distress Head: atraumatic, normal appearance Eyes: Bilateral: normal appearance. Ears, Nose, Throat, Mouth: hearing grossly normal Neck: normal inspection, supple, full range of motion, normal alignment Respiratory: normal breath sounds, chest non-tender, no respiratory distress, quiet respiration, lungs clear Cardiovascular: regular rate/rhythm Gastrointestinal: normal bowel sounds, soft, mild tenderness in right lower quadrant. No rebound no guarding. Back: normal inspection Extremities: normal range of motion Neurologic/Psych: no motor/sensory deficits, awake, alert, oriented x 3 Skin: intact, normal color, warm/dry Core Measures ACS in differential dx? No Severe Sepsis Present: No Septic Shock Present: No Progress Differential Diagnosis: kidney stone, ovarian cyst, UTI/pyelo Plan of Care: Orders Procedure Date/time Status URINALYSIS 06/09 2017 Complete LIPASE 06/09 2017 Complete HEPATIC FUNCTION PANEL 06/09 2017 Complete HUMAN BETA HCG SCREEN 06/09 2017 Complete CBC WITHOUT DIFFERENTIAL 06/09 2017 Complete BASIC METABOLIC PANEL 06/09 2017 Complete AMYLASE 06/09 2017 Complete Laboratory Tests 06/09/16 2213: Urine Color YEL, Urine Clarity HAZY H, Urine pH 6.0, Ur Specific [place] >= 1.030, Urine Protein TRACE H, Urine Ketones NEG, Urine Nitrite NEG, Urine Bilirubin NEG, Urine Urobilinogen 0.2, Ur Leukocyte Esterase SMALL H, Ur Microscopic SEDIMENT EXAMINED, Urine RBC >75 H, Urine WBC 5-10 H, Ur Epithelial Cells MANY H, Urine Mucus MOD H, Urine Hemoglobin LARGE H, Urine Glucose NEG 06/09/16 2102: Anion Gap 14, Estimated GFR > 60, BUN/Creatinine Ratio 22.0, Glucose 105 H, Calcium 9.3, Total Bilirubin 0.6, Direct Bilirubin 0.4, AST 18, ALT 25, Alkaline Phosphatase 74, Total Protein 7.2, Albumin 4.1, Amylase 50, Lipase 103, Total Beta HCG NEGATIVE, CBC w Diff NO MAN DIFF REQ, RBC 4.63, MCV 83.4, MCH 27.6, RDW 14.7 H, MPV 6.4 L, Gran % 63.5, Lymphocytes % 27.6, Monocytes % 5.9, Eosinophils % 2.5, Basophils % 0.5, Absolute Granulocytes 4.4, Absolute Lymphocytes 1.9, Absolute Monocytes 0.4, Absolute Eosinophils 0.2, Absolute Basophils 0, PUBS MCHC 33.1 Diagnostic Imaging: Viewed by Me: CT Scan. Discussed w/RAD: CT Scan. Radiology Impression: abd/pelvic ct... full report below... ovarian cyst noted. no ureteral obstruction. Initial ED EKG: none Comments: PATIENT: HUGO NIELSEN PRESENT AGE: 30 PATIENT ACCOUNT NO: [id number] : 86 LOCATION: [facility] ORDERING PHYSICIAN: ARIANA SINGH MD SERVICE DATE: 06/09/16 EXAM TYPE: CAT - CT ABD & PELVIS W/O IV CONTRAS EXAMINATION: CT ABDOMEN AND PELVIS WITHOUT CONTRAST CLINICAL INFORMATION: Right lower quadrant pain. Patient with recent lithotripsy on right side. COMPARISON: CT dated 03/25/2016. TECHNIQUE: Multidetector volumetric imaging was performed from the superior aspect of the liver through the pubic symphysis. Sagittal and coronal reformatted images were obtained on the technologist's workstation. DLP: 1077.76 mGy-cm FINDINGS: The imaged portions of the lungs are clear. There are no pleural effusions. The liver, adrenal glands, and pancreas are unremarkable on this noncontrast study. There is stable mild splenomegaly. The gallbladder is not clearly visualized. There is no biliary ductal dilatation. A punctate calculus is noted within the right kidney. No ureteral calculi. There is no hydronephrosis. Left renal cortical scarring and volume loss again noted in the upper pole. There is no perinephric stranding. The abdominal aorta is normal in caliber. There is no evidence of a bowel obstruction. No pericolonic inflammatory changes or large bowel wall thickening is seen. The appendix is normal. Spinal fusion rods results in significant beam hardening artifacts. Lower lumbar spinal dysraphism again noted. No acute osseous abnormality is seen. 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 No free air or free fluid is seen. The bladder is partially distended without wall thickening. The uterus is normal. There is a hiatal hernia containing mostly fat. A right ovarian dermoid may be slightly enlarged compared to prior imaging, now measuring 4.6 x 4.5 x 4.3 cm, previously measuring 4.4 x 4.3 x 4.3 cm. A contiguous low-density right ovarian lesion has mildly increased in size, now measuring 3.7 x 3 cm, previously measuring 2.7 x 2.8 cm. No inflammatory changes are seen around the right adnexal lesions. IMPRESSION: Mild interval increase in size of the right ovarian dermoid and indeterminate low density right ovarian lesion which could be further characterized with pelvic sonography or MRI. Otherwise, no acute intra-abdominal or pelvic process. Additional chronic findings as described. Small nonobstructing right renal calculus. No hydronephrosis or obstructing ureteral calculus. DICTATED BY: SHIRA DYKES MD DATE/TIME DICTATED:06/09/162207 CHARM FILTER OPERATOR HELPER:HUSSEIN DATE/TIME TRANSCRIBED:06/09/162207 CONFIDENTIAL, DO NOT COPY WITHOUT APPROPRIATE AUTHORIZATION. <Electronically signed in Other Vendor System> SIGNED BY: SHIRA DYKES MD 2227 Departure Departure Disposition: HOME OR SELF CARE Condition: Stable Clinical Impression Primary Impression: Abdominal pain Secondary Impressions: Ovarian cyst, Renal colic on right side Referrals: GARBIELLE ALLISON MD (PCP/Family) Departure Forms: Customer Survey General Discharge Information Comments Patient feels well after supportive medications. No sign of obstruction or inflammation. Pulse likely assert presents post for suture type pain. Dermoid cyst noted on the ovary. This appears stable dissection due to her abdominal pain. Discussed at great length advised close follow-up
[2016-06-09 21:12] LABS: ABSOLUTE BASOPHIL COUNT 0 /CUMM (0.0-0.2); ABSOLUTE EOSINOPHIL COUNT 0.2 /CUMM (0.0-0.7); ABSOLUTE GRANULOCYTE CT 4.4 /CUMM (1.4-6.5); ABSOLUTE LYMPH COUNT 1.9 /CUMM (1.2-3.4); ABSOLUTE MONOCYTE COUNT 0.4 /CUMM (0.10-0.60); BASOPHIL % 0.5 % (0.0-2.0); EOSINOPHIL % 2.5 % (0-5); GRANULOCYTE % 63.5 % (42.2-75.2); HEMATOCRIT 38.6 % (37-47); MEAN CORPUSCULAR HGB 27.6 PG (27.0-31.0); MEAN CORPUSCULAR HGB CONC 33.1 G/DL (33.0-37.0); MEAN CORPUSCULAR VOLUME 83.4 FL (81.0-99.0); MEAN PLATELET VOLUME 6.4 FL (7.4-10.4); PLATELET COUNT 222 /CUMM (130-400); RBC DISTRIBUTION WIDTH 14.7 % (11.5-14.5); RED BLOOD CELL CT 4.63 /CUMM (4.20-5.40); WHITE BLOOD CELL COUNT 6.9 /CUMM (4.8-10.8)
[2016-06-09] MEDS ORDERED: CIPRO250 M1 PO (21:22)
--- NOTE | 2016-06-09 22:28 | CT SCAN REPORT ---
EXAMINATION: CT ABDOMEN AND PELVIS WITHOUT CONTRAST CLINICAL INFORMATION: Right lower quadrant pain. Patient with recent lithotripsy on right side. COMPARISON: CT dated 03/25/2016. TECHNIQUE: Multidetector volumetric imaging was performed from the superior aspect of the liver through the pubic symphysis. Sagittal and coronal reformatted images were obtained on the technologist's workstation. DLP: 1077.76 mGy-cm FINDINGS: The imaged portions of the lungs are clear. There are no pleural effusions. The liver, adrenal glands, and pancreas are unremarkable on this noncontrast study. There is stable mild splenomegaly. The gallbladder is not clearly visualized. There is no biliary ductal dilatation. A punctate calculus is noted within the right kidney. No ureteral calculi. There is no hydronephrosis. Left renal cortical scarring and volume loss again noted in the upper pole. There is no perinephric stranding. The abdominal aorta is normal in caliber. There is no evidence of a bowel obstruction. No pericolonic inflammatory changes or large bowel wall thickening is seen. The appendix is normal. Spinal fusion rods results in significant beam hardening artifacts. Lower lumbar spinal dysraphism again noted. No acute osseous abnormality is seen. 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 No free air or free fluid is seen. The bladder is partially distended without wall thickening. The uterus is normal. There is a hiatal hernia containing mostly fat. A right ovarian dermoid may be slightly enlarged compared to prior imaging, now measuring 4.6 x 4.5 x 4.3 cm, previously measuring 4.4 x 4.3 x 4.3 cm. A contiguous low-density right ovarian lesion has mildly increased in size, now measuring 3.7 x 3 cm, previously measuring 2.7 x 2.8 cm. No inflammatory changes are seen around the right adnexal lesions. IMPRESSION: Mild interval increase in size of the right ovarian dermoid and indeterminate low density right ovarian lesion which could be further characterized with pelvic sonography or MRI. Otherwise, no acute intra-abdominal or pelvic process. Additional chronic findings as described. Small nonobstructing right renal calculus. No hydronephrosis or obstructing ureteral calculus.
[2016-06-09 22:36] VITALS: BP 134/65
== END 2016-06-09 23:05 ==
LOC: ERH 19:47
PROVIDERS: Pediatrics
DX: N83.201 Unspecified ovarian cyst, right side (principal); N23 Unspecified renal colic
CPT/HCPCS: 74176; 81001; 96361; 96374; 96375; J1200; J1885; J2405

== ENCOUNTER 2016-06-12 20:12 | Emergency (ER) | payer OTHER ==
[~2016-06-12] VITALS: Ht 152.4 cm; Wt 99.8 kg
[~2016-06-12 20:12] MED LIST changes: +CIPRO250 M1 PO
[2016-06-12 20:21] VITALS: BP 139/88
--- NOTE | 2016-06-12 21:36 | ED DYSPNEA/ASTHMA COMPLAINT ---
History of Present Illness General Chief Complaint: Wheezing/Asthma Stated Complaint: ASTHMA Source: patient, family, old records Exam Limitations: no limitations Vital Signs & Intake/Output Vital Signs & Intake/Output Vital Signs Date Time Temp Pulse Resp B/P Pulse O2 O2 Flow FiO2 Ox Delivery Rate 06/12 2149 97 06/12 2020 97.8 85 20 139/88 96 Room Air Allergies Coded Allergies: adhesive tape (Severe, ANAPHYLAXIS 06/02/16) amoxicillin (Severe, ANAPHYLAXIS 06/02/16) ampicillin (Severe, ANAPHYLAXIS 06/02/16) cefaclor (Severe, ANAPHYLAXIS 06/02/16) clavulanic acid (From AUGMENTIN) (Severe, ANAPHYLAXIS 06/02/16) clindamycin (Severe, ANAPHYLAXIS 06/02/16) latex (Severe, ANAPHYLAXIS 06/02/16) tobramycin (Severe, ANAPHYLAXIS 06/02/16) vancomycin (Severe, ANAPHYLAXIS 06/02/16) meloxicam (Intermediate, FACE SWELLING 06/02/16) morphine (Mild, HIVES 06/02/16) Penicillins (ANAPHYLAXIS 06/02/16) propofol (GI UPSET 06/09/16) Reconcile Medications Albuterol Sulfate (Proair Respiclick) 90 MCG AER.POW.BA 2 PUFF PO Q4 HRS NEEDED PRN RESPIRATORY (Reported) Aripiprazole (Abilify) 5 MG TABLET 1 TAB PO DAILY ANXIETY/DEPRESSION ( Reported) Ciprofloxacin HCl (Cipro) 250 MG TABLET 1 TAB PO DAILY PROPHYLAXIS (Reported) Ciprofloxacin HCl (Cipro) 500 MG TABLET 1 TAB PO BID ANTIBIOTIC (Reported) Diazepam (Valium) 5 MG TABLET 1 TAB PO BID PRN ANXIETY (Reported) Escitalopram Oxalate 20 MG TABLET 1 TAB PO DAILY ANXIETY/DEPRESSION (Reported ) Gabapentin 100 MG CAPSULE 1 CAP PO TID NEUROPATHY (Reported) Hydroxyzine HCl 25 MG TABLET 1 TAB PO TID ANXIETY/DEPRESSION (Reported) Ibuprofen 800 MG TABLET 1 TAB PO BID PAIN (Reported) Metoclopramide HCl (Reglan) 10 MG TABLET 1 TAB PO TID N/V (Reported) 30 minutes before meals and bedtime Mometasone Furoate (Nasonex) 50 MCG SPRAY.PUMP 2 SPRAY NASB DAILY RHINOSINUSITIS Morphine Sulfate (Morphine Sulfate ER) 15 MG TABLET.ER 1 TAB PO BID PAIN ( Reported) Ondansetron (Zofran Odt) 4 MG TAB.RAPDIS 1 TAB SL TID N/V (Reported) Oxycodone HCl/Acetaminophen (Percocet 7.5-325 MG Tablet) 1 EACH TABLET 1 TAB PO TID PAIN (Reported) Triage Note: PT TO ED REQUESTING DUONEB TREATMENT S/P WAKING UP FROM A DREAM AND FEELING LIKE SHE COULDN'T BREATHE. O2 SAT 96% ON RA Triage Nurses Notes Reviewed? yes : No Patient currently breastfeeds: No HPI: Patient is a 30 year old female presents complaining of asthma exacerbation. Patient awoke from a nap and felt shortness of breath. Patient used her albuterol inhaler and advair with no improvement. Patient with multiple ED visits with similar symptoms. Patient was seen last week in the emergency department, had a negative d-dimer. Patient is also complaining of right flank pain. History of kidney stones, had lithotripsy last week. Taking percocet with improvement of pain, last dose at 1500 today, and pain is returning. Denies fevers, chest pain, vomiting. Past History Travel History Traveled to [place] past 21 day No Medical History Any Pertinent Medical History? 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 No Review of Systems Review of Systems Constitutional: Denies: chills, fever. EENTM: Reports: no symptoms. Respiratory: Reports: see HPI. Cardiovascular: Denies: chest pain. GI: Reports: abdominal pain (right flank). Genitourinary: Reports: pain. Musculoskeletal: Reports: back pain (chronic). Skin: Reports: no symptoms. Hematologic/Endocrine: Reports: no symptoms. Immunologic/Allergic: Reports: no symptoms. Physical Exam Physical Exam General Appearance: well developed/nourished, alert, awake, obese Head: atraumatic, normal appearance Eyes: Bilateral: normal appearance. Ears, Nose, Throat: hearing grossly normal Neck: normal inspection, supple, full range of motion Respiratory: chest non-tender, no respiratory distress, minimal occasional scattered expiratory wheezing Cardiovascular: regular rate/rhythm Gastrointestinal: right mid abdominal tenderness Neurologic/Psych: awake, alert, oriented x 3 Skin: warm/dry Lymphatic: no anterior cervical gold Core Measures ACS in differential dx? No Severe Sepsis Present: No Septic Shock Present: No Progress Differential Diagnosis: asthma, bronchitis, CHF, COPD, musculoskeletal pain, pulmonary embolism, pneumonia, unstable angina, renal colic, medication seeking Plan of Care: Current Medications Sig/Jorge A Start time Last Medication Dose Stop Time Status Admin Dexamethasone 8 MG ONCE ONE 06/12 2244 UNVr (Decadron) 06/12 2245 Care plan reviewed. Patient with recent diagnosis of kidney stones and lithotripsy, will provide a dose of Toradol and a dose of Percocet for treatment of renal colic. 06/12/160: Patient reports she continues with symptoms of dyspnea. No acute respiratory distress. Oxygen saturation high 90's prior to and after nebulizer treatment. Previous records reviewed. Patient with negative D-dimer 10 days ago. No chest pain, no tachycardia or hypoxia. Labs and imaging deferred secondary to recent work-ups and current clinical condition. (MUKUL WALKER,SARAI) Initial ED EKG: none Departure Departure Disposition: HOME OR SELF CARE Condition: Stable Clinical Impression Primary Impression: Asthma exacerbation Secondary Impressions: Renal colic on right side Referrals: GABRIELLE ALLISON MD (PCP/Family) Additional Instructions: Continue your albuterol inhaler and advair as directed. Continue taking the pain medciation as previously directed. Follow up with your primary doctor and your urologist within 1 week for further evaluation. Return to the ER if worsening of symptoms. Departure Forms: Customer Survey General Discharge Information Critical Care Note Critical Care Note Critical Care Time: non-applicable
== END 2016-06-12 22:40 ==
LOC: ERH 20:12
DX: J45.901 Unspecified asthma with (acute) exacerbation (principal); N23 Unspecified renal colic
CPT/HCPCS: 1263; 96372; J1885

== ENCOUNTER 2016-06-17 12:55 | Emergency (ER) | payer OTHER ==
[~2016-06-17] VITALS: Ht 157.5 cm; Wt 99.8 kg
--- NOTE | 2016-06-17 13:56 | ED GENERAL ADULT ---
History of Present Illness General Chief Complaint: Upper Respiratory Sx/Fever Stated Complaint: "I NEED A BREATHING TREATMENT" Source: patient, family, old records Exam Limitations: no limitations Vital Signs & Intake/Output Vital Signs & Intake/Output Vital Signs Date Time Temp Pulse Resp B/P Pulse O2 O2 Flow FiO2 Ox Delivery Rate 06/17 1428 105 18 118/66 95 Room Air 06/17 1424 Room Air 06/17 1305 97.9 93 20 136/84 97 Room Air Allergies Coded Allergies: adhesive tape (Severe, ANAPHYLAXIS 06/17/16) amoxicillin (Severe, ANAPHYLAXIS 06/17/16) ampicillin (Severe, ANAPHYLAXIS 06/17/16) cefaclor (Severe, ANAPHYLAXIS 06/17/16) clavulanic acid (From AUGMENTIN) (Severe, ANAPHYLAXIS 06/17/16) clindamycin (Severe, ANAPHYLAXIS 06/17/16) latex (Severe, ANAPHYLAXIS 06/17/16) tobramycin (Severe, ANAPHYLAXIS 06/17/16) vancomycin (Severe, ANAPHYLAXIS 06/17/16) meloxicam (Intermediate, FACE SWELLING 06/17/16) morphine (Mild, HIVES 06/17/16) Penicillins (ANAPHYLAXIS 06/17/16) propofol (GI UPSET 06/17/16) Reconcile Medications Albuterol Sulfate (Proair Respiclick) 90 MCG AER.POW.BA 2 PUFF PO Q4 HRS NEEDED PRN RESPIRATORY (Reported) Aripiprazole (Abilify) 5 MG TABLET 1 TAB PO DAILY ANXIETY/DEPRESSION ( Reported) Ciprofloxacin HCl (Cipro) 250 MG TABLET 1 TAB PO DAILY PROPHYLAXIS (Reported) Ciprofloxacin HCl (Cipro) 500 MG TABLET 1 TAB PO BID ANTIBIOTIC (Reported) Diazepam (Valium) 5 MG TABLET 1 TAB PO BID PRN ANXIETY (Reported) Escitalopram Oxalate 20 MG TABLET 1 TAB PO DAILY ANXIETY/DEPRESSION (Reported ) Gabapentin 100 MG CAPSULE 1 CAP PO TID NEUROPATHY (Reported) Gabapentin 100 MG CAPSULE 1 CAP PO TID pain Hydroxyzine HCl 25 MG TABLET 1 TAB PO TID ANXIETY/DEPRESSION (Reported) Ibuprofen 800 MG TABLET 1 TAB PO BID PAIN (Reported) Metoclopramide HCl (Reglan) 10 MG TABLET 1 TAB PO TID N/V (Reported) 30 minutes before meals and bedtime Mometasone Furoate (Nasonex) 50 MCG SPRAY.PUMP 2 SPRAY NASB DAILY RHINOSINUSITIS Morphine Sulfate (Morphine Sulfate ER) 15 MG TABLET.ER 1 TAB PO BID PAIN ( Reported) Ondansetron (Zofran Odt) 4 MG TAB.RAPDIS 1 TAB SL TID N/V (Reported) Oxycodone HCl/Acetaminophen (Percocet 7.5-325 MG Tablet) 1 EACH TABLET 1 TAB PO TID PAIN (Reported) Triage Note: TRIAGE: PT TO ER WITH C/C DIFFICULTY BREATHING AND "CATCHING HER BREATH" SINCE YESTERDAY. REPORTS NONPRODUCTIVE COUGH. AFEBRILE. USING OWN INHALERS WITH NO RELIEF NOTED. R/A SATS 97% AT TRIAGE, SKIN COLOR GOOD, SPEAKING IN COMPLETE SENTENCES. Triage Nurses Notes Reviewed? yes : No Patient currently breastfeeds: No HPI: Patient is a 30 year old female presents complaining of nonproductive cough, dyspnea, and chest wall pain. Symptoms onset yesterday evening. Patient using her albuterol inhaler with no improvement. Patient has been seen in the ED multiple times for similar complaints, seen 2 days ago. Pain in the chest is a burning sensation, worsens with cough and palpation. Denies fevers. Patient reports she takes Gabapentin for her pain, but recently ran out. (SARAI WRIGHT) Past History Travel History Traveled to [place] past 21 day No Medical History Any Pertinent Medical History? 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 No (SARAI WRIGHT) Review of Systems Review of Systems Constitutional: Denies: chills, fever. EENTM: Reports: no symptoms. Respiratory: Reports: cough, short of breath, wheezing (none currently). Cardiovascular: Reports: chest pain. Denies: syncope. GI: Reports: abdominal pain (right flank). Musculoskeletal: Reports: no symptoms. Skin: Reports: no symptoms. Neurological/Psychological: Reports: no symptoms. Hematologic/Endocrine: Reports: no symptoms. Immunologic/Allergic: Reports: no symptoms. (SARAI WRIGHT) Physical Exam Physical Exam General Appearance: well developed/nourished, alert, awake, obese Head: atraumatic, normal appearance Eyes: Bilateral: normal appearance, PERRL, EOMI. Ears, Nose, Throat: hearing grossly normal Neck: normal inspection, supple, full range of motion Respiratory: normal breath sounds, no respiratory distress, lungs clear, midsternal chest wall tenderness Cardiovascular: regular rate/rhythm (no murmur) Gastrointestinal: soft, mild right abdominal tenderness Back: normal inspection, normal range of motion Neurologic/Psych: awake, alert, oriented x 3 Skin: intact, normal color, warm/dry Lymphatic: no anterior cervical gold Core Measures ACS in differential dx? No CVA/TIA Diagnosis: No Severe Sepsis Present: No Septic Shock Present: No (SARAI WRIGHT) Progress Differential Diagnoses I considered the following diagnoses in my evaluation of the patient: Plan of Care: Current Medications Sig/Jorge A Start time Last Medication Dose Stop Time Status Admin Ketorolac 30 MG ONCE ONE 06/17 141 UNVr Tromethamine 06/17 141 (Toradol) Discussed with patient obtaining a renal ultrasound given her continued right flank pain. Patient reports that she has an ultrasound scheduled on Sunday and would rather wait until then. Lung exam unremarkable, no current wheezing or rales or rhonchi. Discussed obtaining lung imaging which patient and her would rather defer given her previous x-rays, CT scans, workups. (SARAI WRIGHT) Initial ED EKG: none (SARAI WRIGHT) Departure Departure Time of Disposition: 1412 Disposition: HOME OR SELF CARE Condition: Stable Clinical Impression Primary Impression: Dyspnea Secondary Impressions: Chest wall pain Referrals: GABRIELLE ALLISON MD (PCP/Family) LEONARD BANERJEE,NAOMI GAR MD,KARISSA Additional Instructions: Follow-up on Sunday for your ultrasound and further testing that you have had previously scheduled. Follow up with Dr. Gar for further evaluation of your symptoms, call Sunday. Return to the ER if worsening of symptoms. 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 I have also reviewed all the pertinent lab results and diagnostic results. I agree with the findings and the plan of care as documented in the PA's/TUBER MACHINE OPERATOR's documentation. [X] I have reviewed the ED Record and agree with the PA's/TUBER MACHINE OPERATOR's documentation. [] Additions or exceptions (if any) to the PAs/TUBER MACHINE OPERATOR's note and plan are summarized below: [] (SHAWANDA BANERJEE,SHIRA Link) Critical Care Note Critical Care Note Critical Care Time: non-applicable (SARAI WRIGHT)
[2016-06-17] MEDS ORDERED: GABAPENTIN100 M2 PO (14:17)
[2016-06-17 14:28] VITALS: BP 118/66
== END 2016-06-17 14:30 ==
LOC: ERH 12:55
DX: R06.00 Dyspnea, unspecified (principal); R07.89 Other chest pain
CPT/HCPCS: 96372; J1885

== ENCOUNTER 2016-06-20 15:20 | Emergency (ER) | payer OTHER ==
[~2016-06-20] VITALS: Ht 152.4 cm; Wt 99.8 kg
[2016-06-20 15:38] VITALS: BP 105/75
--- NOTE | 2016-06-20 18:36 | ED GENERAL ADULT ---
History of Present Illness General Chief Complaint: Upper Respiratory Sx/Fever Stated Complaint: SOB,CHEST CONGESTION SEEN LAST WEEK FOR SAME Source: patient, old records Exam Limitations: no limitations Vital Signs & Intake/Output Vital Signs & Intake/Output Vital Signs Date Time Temp Pulse Resp B/P Pulse O2 O2 Flow FiO2 Ox Delivery Rate 06/20 1538 97.8 89 20 105/75 95 Room Air Allergies Coded Allergies: adhesive tape (Severe, ANAPHYLAXIS 06/20/16) amoxicillin (Severe, ANAPHYLAXIS 06/20/16) ampicillin (Severe, ANAPHYLAXIS 06/20/16) cefaclor (Severe, ANAPHYLAXIS 06/20/16) clavulanic acid (From AUGMENTIN) (Severe, ANAPHYLAXIS 06/20/16) clindamycin (Severe, ANAPHYLAXIS 06/20/16) latex (Severe, ANAPHYLAXIS 06/20/16) tobramycin (Severe, ANAPHYLAXIS 06/20/16) vancomycin (Severe, ANAPHYLAXIS 06/20/16) meloxicam (Intermediate, FACE SWELLING 06/20/16) morphine (Mild, HIVES 06/20/16) Penicillins (ANAPHYLAXIS 06/20/16) propofol (GI UPSET 06/20/16) Reconcile Medications Albuterol Sulfate (Proair Respiclick) 90 MCG AER.POW.BA 2 PUFF PO Q4 HRS NEEDED PRN RESPIRATORY (Reported) Aripiprazole (Abilify) 5 MG TABLET 1 TAB PO DAILY ANXIETY/DEPRESSION ( Reported) Ciprofloxacin HCl (Cipro) 250 MG TABLET 1 TAB PO DAILY PROPHYLAXIS (Reported) Cyclobenzaprine HCl 10 MG TABLET 1 TAB PO BID MUSCLE RELAXER (Reported) Diazepam (Valium) 5 MG TABLET 1 TAB PO BID PRN ANXIETY (Reported) Escitalopram Oxalate 20 MG TABLET 1 TAB PO DAILY ANXIETY/DEPRESSION (Reported ) Gabapentin 100 MG CAPSULE 1 CAP PO TID NEUROPATHY (Reported) Hydroxyzine HCl 25 MG TABLET 1 TAB PO TID ANXIETY/DEPRESSION (Reported) Ibuprofen 800 MG TABLET 1 TAB PO BID PAIN (Reported) Metoclopramide HCl (Reglan) 10 MG TABLET 1 TAB PO TID N/V (Reported) 30 minutes before meals and bedtime Mometasone Furoate (Nasonex) 50 MCG SPRAY.PUMP 2 SPRAY NASB DAILY RHINOSINUSITIS Morphine Sulfate (Morphine Sulfate ER) 15 MG TABLET.ER 1 TAB PO BID PAIN ( Reported) Ondansetron (Zofran Odt) 4 MG TAB.RAPDIS 1 TAB SL TID N/V (Reported) Oxycodone HCl/Acetaminophen (Percocet 7.5-325 MG Tablet) 1 EACH TABLET 1 TAB PO TID PAIN (Reported) Triage Note: TRIAGE: PT TO ER C/C SOB, CHEST CONGESTION, COUGH FEELS "LIKE IT'S TRYING TO BE PRODUCTIVE BUT NOTHING IS COMING UP". PAIN TO CHEST, RIBS AND LEFT ARM X 1 WK WELL. USING OWN INHALERS WITH NO RELIEF NOTED. WAS SEEN HERE 3 DAYS AGO FOR SAME. WAS GIVEN PRESCRIPTIONS FOR INHALERS, GABAPENTIN & ATARAX. ADVISED TO F/UP W/DR GAR BUT UNABLE TO GET APPT UNTIL 07/10. STATES WAS TOLD TO RETURN TO ER IF S/S WORSENED. R/A SATS WNL, SPEAKING IN COMPLETE SENTENCES, DOES NOT APPEAR TO BE IN ANY RESPIRATORY DISTRESS AT TRIAGE. Triage Nurses Notes Reviewed? yes : No Patient currently breastfeeds: No HPI: Patient presents for evaluation of right bilateral parasternal chest pain, left upper extremity pain and bilateral rib pains that have been present for at least a week. She was evaluated last week in this emergency Department for the same symptom complex. She states she is also having trouble breathing despite the use of her home inhalers. She states she has had a cough but no phlegm production. Her abdominal pain as a severe sharp stabbing pain that gets worse with palpation and deep inspiration. She is also experiencing a diffuse abdominal pain over the past 2 weeks with no associated fever or cold symptoms, vomiting or changes in bowel habits. She has been suffering mild intermittent nasal congestion. (JIMBO BANERJEE,ELADIO Cardona) Past History Travel History Traveled to [place] past 21 day No Medical History Any Pertinent Medical History? 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 No (ELADIO CHOI MD) Review of Systems Review of Systems Constitutional: Reports: no symptoms. EENTM: Reports: no symptoms. Respiratory: Reports: cough, short of breath. Cardiovascular: Reports: chest pain. GI: Reports: abdominal pain. Genitourinary: Reports: no symptoms. Musculoskeletal: Reports: no symptoms. Skin: Reports: no symptoms. Neurological/Psychological: Reports: no symptoms. Hematologic/Endocrine: Reports: no symptoms. Immunologic/Allergic: Reports: no symptoms. All Other Systems: Reviewed and Negative (ELADIO CHOI MD) Physical Exam Physical Exam General Appearance: SEE BELOW Comments: Though initially comfortable appearing, Patient's chest pain worsened with history taking. Patient began grabbing her chest and grimacing. Gen.: Well-nourished, well-developed, no acute respiratory distress. Overweight. Sitting in her wheelchair. Head: Normocephalic, atraumatic. Eyes: Normal inspection bilaterally Ears: Normal inspection bilaterally Nose: Normal inspection Throat/mouth : Moist mucosa Neck: Supple, full range of motion, no goiter Heart: Regular rate and rhythm, no murmurs rubs or gallops Lungs: Clear to auscultation bilaterally with normal air entry Chest: Parasternal tenderness that reproduces the pain of the chief complaint Back: Normal range of motion, nontender Abdomen: Soft, diffuse tenderness without rebound or guarding., nondistended, normal bowel sounds Extremities: Normal range of motion of the upper extremities grossly, equal radial pulses, no cyanosis clubbing or edema of the upper extremities, paralysis of the lower extremities. Neurologic: Cranial nerves grossly intact, speech is clear Skin: warm and dry Psychiatric: Calm, cooperative, no apparent delusions or hallucinations Core Measures ACS in differential dx? 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 (JIMBO BANERJEEELADIO) Diagnostic Imaging: Viewed by Me: Radiology Read. Discussed w/RAD: Radiology Read. CXR Impression: PATIENT: HUGO NIELSEN PRESENT AGE: 30 PATIENT ACCOUNT NO: [id number] : 86 LOCATION: [facility] ORDERING PHYSICIAN: ELADIO CHOI MD SERVICE DATE: 06/20/16 EXAM TYPE: RAD - XRY-CHEST XRAY, PA AND LATERAL EXAMINATION: XR CHEST CLINICAL INFORMATION: 30- year-old female patient with bronchitis. COMPARISON: Chest x-ray done 2016. TECHNIQUE: 2 views of the chest were obtained. FINDINGS: Spinal rods are in place. The lungs are clear showing no evidence of active disease. There is no pleural effusion. IMPRESSION: No change and unremarkable. No pneumonia. DICTATED BY: PATRICIA KIDD MD DATE/TIME DICTATED:06/20/161936 RECORD LABEL INTERNSHIP: [place] DATE/TIME TRANSCRIBED:06/20/161936 CONFIDENTIAL, DO NOT COPY WITHOUT APPROPRIATE AUTHORIZATION. <Electronically signed in Other Vendor System> SIGNED BY: PATRICIA KIDD MD 06/20/161944 Initial ED EKG: none (SHIRA GUERRA MD) Departure Departure Condition: Stable Referrals: GABRIELLE ALLISON MD (PCP/Family) Departure Forms: Customer Survey General Discharge Information (JIMBO BANERJEE,ELADIO Cardona) Departure Disposition: HOME OR SELF CARE Clinical Impression Primary Impression: Dyspnea Additional Instructions: RETURN NEEDED (SHIRA GUERRA MD) Critical Care Note Critical Care Note Critical Care Time: non-applicable (SHIRA GUERRA MD)
[2016-06-20] MEDS ORDERED: CYCLOBENZAPRINE10 M1 PO (19:14)
--- NOTE | 2016-06-20 19:45 | RADIOLOGY REPORT ---
EXAMINATION: XR CHEST CLINICAL INFORMATION: 30-year-old female patient with bronchitis. COMPARISON: Chest x-ray done 05/09/2016. TECHNIQUE: 2 views of the chest were obtained. FINDINGS: Spinal rods are in place. The lungs are clear showing no evidence of active disease. There is no pleural effusion. IMPRESSION: No change and unremarkable. No pneumonia.
== END 2016-06-20 20:13 ==
LOC: ERH 15:20
DX: R07.89 Other chest pain (principal); R06.00 Dyspnea, unspecified
CPT/HCPCS: 93005; 93010; 96372; J1885

== ENCOUNTER 2016-06-30 02:38 | Emergency (ER) | payer OTHER ==
[~2016-06-30] VITALS: Ht 157.5 cm; Wt 99.8 kg
[2016-06-30] MEDS ORDERED: PREDNISONE20 M1 PO (04:14)
[2016-06-30] MEDS ORDERED: Nebulizer machine (04:14)
[2016-06-30] MEDS ORDERED: ALBUTEROL2.5 MG/3 M INH/SOL (04:14)
--- NOTE | 2016-06-30 04:15 | ED DYSPNEA/ASTHMA COMPLAINT ---
History of Present Illness General Chief Complaint: Wheezing/Asthma Stated Complaint: " I NEED A BREATHING TREATMENT OR TWO" PER PT 98% Source: patient, family, old records Exam Limitations: no limitations Vital Signs & Intake/Output Vital Signs & Intake/Output Vital Signs Date Time Temp Pulse Resp B/P Pulse O2 O2 Flow FiO2 Ox Delivery Rate 06/30 0328 96 06/30 0256 97.0 124 16 99 Room Air Allergies Coded Allergies: adhesive tape (Severe, ANAPHYLAXIS 06/20/16) amoxicillin (Severe, ANAPHYLAXIS 06/20/16) ampicillin (Severe, ANAPHYLAXIS 06/20/16) cefaclor (Severe, ANAPHYLAXIS 06/20/16) clavulanic acid (From AUGMENTIN) (Severe, ANAPHYLAXIS 06/20/16) clindamycin (Severe, ANAPHYLAXIS 06/20/16) latex (Severe, ANAPHYLAXIS 06/20/16) tobramycin (Severe, ANAPHYLAXIS 06/20/16) vancomycin (Severe, ANAPHYLAXIS 06/20/16) meloxicam (Intermediate, FACE SWELLING 06/20/16) morphine (Mild, HIVES 06/20/16) Penicillins (ANAPHYLAXIS 06/20/16) propofol (GI UPSET 06/20/16) Reconcile Medications Albuterol Sulfate (Proair Respiclick) 90 MCG AER.POW.BA 2 PUFF PO Q4 HRS NEEDED PRN RESPIRATORY (Reported) Aripiprazole (Abilify) 5 MG TABLET 1 TAB PO DAILY ANXIETY/DEPRESSION ( Reported) Ciprofloxacin HCl (Cipro) 250 MG TABLET 1 TAB PO DAILY PROPHYLAXIS (Reported) Cyclobenzaprine HCl 10 MG TABLET 1 TAB PO BID MUSCLE RELAXER (Reported) Diazepam (Valium) 5 MG TABLET 1 TAB PO BID PRN ANXIETY (Reported) Escitalopram Oxalate 20 MG TABLET 1 TAB PO DAILY ANXIETY/DEPRESSION (Reported ) Gabapentin 100 MG CAPSULE 1 CAP PO TID NEUROPATHY (Reported) Hydroxyzine HCl 25 MG TABLET 1 TAB PO TID ANXIETY/DEPRESSION (Reported) Ibuprofen 800 MG TABLET 1 TAB PO BID PAIN (Reported) Metoclopramide HCl (Reglan) 10 MG TABLET 1 TAB PO TID N/V (Reported) 30 minutes before meals and bedtime Mometasone Furoate (Nasonex) 50 MCG SPRAY.PUMP 2 SPRAY NASB DAILY RHINOSINUSITIS Morphine Sulfate (Morphine Sulfate ER) 15 MG TABLET.ER 1 TAB PO BID PAIN ( Reported) Ondansetron (Zofran Odt) 4 MG TAB.RAPDIS 1 TAB SL TID N/V (Reported) Oxycodone HCl/Acetaminophen (Percocet 7.5-325 MG Tablet) 1 EACH TABLET 1 TAB PO TID PAIN (Reported) Core Measure Meds Pre-Hospital antibiotics Triage Note: PT TO TRIAGE C/O WORSENING ASTHMA AND CP. PT STATES TROUBLE BREATHING STARTED 4 HOURS AGO. PT HAS HX OF ASTHMA, PT TRIED ALBUTEROL AT HOME BUT STATED IT DID NOT WORK. PT SATING 96% ON RA IN TRIAGE. Triage Nurses Notes Reviewed? yes Onset: Just prior to arrival Duration: hour(s):, continues in ED Timing: recent history Severity: moderate Activities at Onset: rest Prior Episodes/Possible Cause: frequent episodes Associated Symptoms: cough, wheezing LMP (ages 10-50): unknown : No Patient currently breastfeeds: No HPI: 45 hours prior to admission patient complains of increased wheezing not improved with MDI nonproductive cough. She denies fever chills chest pain nausea vomiting diarrhea abdominal pain dysuria rash headache bleeding. Past History Travel History Traveled to [place] past 21 day No Medical History Any Pertinent Medical History? 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 EENT: NONE Cardiovascular: NONE Respiratory: NONE Gastrointestinal: NONE Hepatic: cholelithiasis Renal: nephrolithiasis, SELF CATHETERIZATION neurogenic bladder Musculoskeletal: SPINA BIFIDA BACK PAIN COSTOCHONDRITIS Psychiatric: NONE Endocrine: NONE Blood Disorders: NONE Cancer(s): NONE ARCHEOLOGIST/Reproductive: NONE Other Medical Hx: MECHANICAL ENGINEERING PROFESSOR shunt History of MRSA: No History of VRE: No History of CDIFF: No Surgical History Surgical History: none Psychosocial History Who do you live with Family What is your primary language Romansh Tobacco Use: Current Not Daily Family History Family History, If Any: FATHER FH: lung cancer Hx Contributory? No Review of Systems Review of Systems Constitutional: Reports: no symptoms. EENTM: Reports: no symptoms. Respiratory: Reports: see HPI, cough, short of breath, wheezing. Cardiovascular: Reports: no symptoms. GI: Reports: no symptoms. Genitourinary: Reports: no symptoms. Musculoskeletal: Reports: no symptoms. Skin: Reports: no symptoms. Neurological/Psychological: Reports: no symptoms. Hematologic/Endocrine: Reports: no symptoms. Immunologic/Allergic: Reports: no symptoms. All Other Systems: Reviewed and Negative Physical Exam Physical Exam General Appearance: well developed/nourished, alert, awake, anxious, mild distress Head: atraumatic, normal appearance Eyes: Bilateral: normal appearance, PERRL, EOMI. Ears, Nose, Throat: normal pharynx, normal ENT inspection, hearing grossly normal Neck: normal inspection, supple, full range of motion, no midline tenderness Respiratory: chest non-tender, no respiratory distress, decreased breath sounds, wheezing Cardiovascular: regular rate/rhythm, normal peripheral pulses, norml femoral pulses equa Peripheral Pulses: 4+ carotid (R), 4+ carotid (L) Gastrointestinal: normal bowel sounds, soft, non-tender, no organomegaly Extremities: normal capillary refill, bilateral AKA Neurologic/Psych: no motor/sensory deficits, awake, alert, oriented x 3 Skin: intact, normal color, warm/dry Lymphatic: no anterior cervical gold Core Measures ACS in differential dx? No Severe Sepsis Present: No Septic Shock Present: No Progress Differential Diagnosis: asthma, bronchitis, COPD Plan of Care: Current Medications Sig/Jorge A Start time Last Medication Dose Stop Time Status Admin Acetaminophen 975 MG ONCE ONE 06/30 414 AC (Tylenol) 07/01 415 Initial ED EKG: none Departure Departure Time of Disposition: 411 Disposition: HOME OR SELF CARE Condition: Stable Clinical Impression Primary Impression: Asthma with exacerbation Qualifiers: Asthma severity: mild persistent Qualified Code: J45.31 - Mild persistent asthma with (acute) exacerbation Referrals: GABRIELLE ALLISON MD (PCP/Family) Departure Forms: Customer Survey General Discharge Information Prescriptions: Current Visit Scripts Prednisone 1 TAB PO BID #10 TAB Albuterol Sulfate 1 Vial INH/RADHA Q4P PRN wheezing #50 Vial Ref 5 [Nebulizer machine] #1 UNIT Critical Care Note Critical Care Note Critical Care Time: non-applicable
[2016-06-30 04:22] VITALS: BP 116/80
== END 2016-06-30 04:22 ==
LOC: ERH 02:38
DX: J45.901 Unspecified asthma with (acute) exacerbation (principal); R07.9 Chest pain, unspecified
CPT/HCPCS: 1263

== ENCOUNTER 2016-07-31 05:34 | Emergency (ER) | payer OTHER ==
[~2016-07-31] VITALS: Ht 152.4 cm; Wt 99.8 kg
[~2016-07-31 05:34] MED LIST changes: +ALBUTEROL2.5 MG/3 M INH/SOL; +Nebulizer machine
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
[2016-07-31] MEDS ORDERED: PROAIR HFA8.5 GM INH (05:52)
[2016-07-31] MEDS ORDERED: PREDNISOLO15 MG/5 M4 PO (05:52)
[2016-07-31 06:59] VITALS: BP 135/28
== END 2016-07-31 07:03 ==
LOC: ERH 05:34
DX: J45.901 Unspecified asthma with (acute) exacerbation (principal)
CPT/HCPCS: 1263

== ENCOUNTER 2016-08-06 00:53 | Emergency (ER) | payer OTHER ==
[~2016-08-06] VITALS: Ht 152.4 cm; Wt 99.8 kg
[~2016-08-06 00:53] MED LIST changes: +PREDNISOLO15 MG/5 M4 PO; +PROAIR HFA8.5 GM INH
--- NOTE | 2016-08-06 01:11 | ED GI/GU/ABDOMINAL COMPLAINT ---
History of Present Illness General Chief Complaint: General Adult Stated Complaint: " PER TACO SHELL STUCK IN 'S THROAT" Source: patient, family, old records Exam Limitations: no limitations Vital Signs & Intake/Output Vital Signs & Intake/Output Vital Signs Date Time Temp Pulse Resp B/P Pulse O2 O2 Flow FiO2 Ox Delivery Rate 08/06 0430 96.7 18 95 120/80 95 Room Air 08/06 0134 98 Room Air 08/06 0133 98 08/06 0059 99.0 95 20 124/73 98 Room Air Allergies Coded Allergies: adhesive tape (Severe, ANAPHYLAXIS 07/31/16) amoxicillin (Severe, ANAPHYLAXIS 07/31/16) ampicillin (Severe, ANAPHYLAXIS 07/31/16) cefaclor (Severe, ANAPHYLAXIS 07/31/16) clavulanic acid (From AUGMENTIN) (Severe, ANAPHYLAXIS 07/31/16) clindamycin (Severe, ANAPHYLAXIS 07/31/16) latex (Severe, ANAPHYLAXIS 07/31/16) tobramycin (Severe, ANAPHYLAXIS 07/31/16) vancomycin (Severe, ANAPHYLAXIS 07/31/16) meloxicam (Intermediate, FACE SWELLING 07/31/16) morphine (Mild, HIVES 07/31/16) Penicillins (ANAPHYLAXIS 07/31/16) propofol (GI UPSET 07/31/16) Reconcile Medications Albuterol Sulfate (Proair Respiclick) 90 MCG AER.POW.BA 2 PUFF PO Q4 HRS NEEDED PRN RESPIRATORY (Reported) Albuterol Sulfate (Proair Hfa) 90 MCG HFA.AER.AD 2 PUF INH Q4-6 PRN PRN WHEEZE Albuterol Sulfate 2.5 MG/3 ML (0.083 %) VIAL.NEB 1 Vial INH/RADHA Q4P PRN wheezing Aripiprazole (Abilify) 5 MG TABLET 1 TAB PO DAILY ANXIETY/DEPRESSION ( Reported) Ciprofloxacin HCl (Cipro) 250 MG TABLET 1 TAB PO DAILY PROPHYLAXIS (Reported) Cyclobenzaprine HCl 10 MG TABLET 1 TAB PO BID MUSCLE RELAXER (Reported) Diazepam (Valium) 5 MG TABLET 1 TAB PO BID PRN ANXIETY (Reported) Escitalopram Oxalate 20 MG TABLET 1 TAB PO DAILY ANXIETY/DEPRESSION (Reported ) Gabapentin 100 MG CAPSULE 1 CAP PO TID NEUROPATHY (Reported) Hydroxyzine HCl 25 MG TABLET 1 TAB PO TID ANXIETY/DEPRESSION (Reported) Ibuprofen 800 MG TABLET 1 TAB PO BID PAIN (Reported) Metoclopramide HCl (Reglan) 10 MG TABLET 1 TAB PO TID N/V (Reported) 30 minutes before meals and bedtime Mometasone Furoate (Nasonex) 50 MCG SPRAY.PUMP 2 SPRAY NASB DAILY RHINOSINUSITIS Morphine Sulfate (Morphine Sulfate ER) 15 MG TABLET.ER 1 TAB PO BID PAIN ( Reported) [Nebulizer machine] asthma Ondansetron (Zofran Odt) 4 MG TAB.RAPDIS 1 TAB SL TID N/V (Reported) Oxycodone HCl/Acetaminophen (Percocet 7.5-325 MG Tablet) 1 EACH TABLET 1 TAB PO TID PAIN (Reported) Prednisolone 15 MG/5 ML SOLUTION 10 ML PO QDAY ASTHMA Prednisone 20 MG TABLET 1 TAB PO BID asthma Triage Note: PT TO ED C/O A PIECE OF TACO SHELL BEING STUCK IN THROAT FOR 20 MINS. PER , PATIENT WAS EATING A TACO "AND A PIECE JUST WENT DOWN" "WE TRIED DRINKING, SELF INDUCED VOMITTING AND THE HEIMLICK AND IT WOULDN'T COME UP" PT NOT SPEAKING R/T PAIN IN THROAT. IS ABLE TO DRINK WATER Triage Nurses Notes Reviewed? yes ? N Is pt currently ? No Onset: Abrupt Duration: minute(s): (20) Timing: single episode today Location: THROAT/CHEST Radiation: no radiation Modifying Factors: Worsens With: eating, other. HPI: 30 year old female h/o spina bifida, wc bound, who presents to the ER for chief complaint of feeling like she choked on a piece of taco shell. She tried to vomit it up at home. Has been able to tolerate saliva and fludis since. Past History Travel History Traveled to [place] past 21 day No Medical History Any Pertinent Medical History? 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 No Review of Systems Review of Systems Constitutional: Denies: chills, fever. EENTM: Reports: no symptoms. Respiratory: Reports: short of breath. Denies: cough. Cardiovascular: Reports: chest pain. GI: Reports: no symptoms. Genitourinary: Reports: no symptoms. Musculoskeletal: Reports: neck pain. Skin: Reports: no symptoms. Neurological/Psychological: Reports: no symptoms. Hematologic/Endocrine: Denies: bruising, bleeding. Immunologic/Allergic: Reports: no symptoms. All Other Systems: Reviewed and Negative Physical Exam Physical Exam General Appearance: well developed/nourished, alert, awake, mild distress, obese Head: atraumatic, normal appearance Eyes: Bilateral: PERRL. Ears, Nose, Throat, Mouth: hearing grossly normal, moist mucous membrane, NORMAL OROPHARYNX Neck: normal inspection, supple, full range of motion, NO STRIDOR Respiratory: normal breath sounds, chest non-tender, no respiratory distress, NO WHEEZING Gastrointestinal: soft, non-tender Extremities: normal range of motion Neurologic/Psych: awake, alert, oriented x 3, WC BOUND Skin: intact, normal color, warm/dry Core Measures ACS in differential dx? No Severe Sepsis Present: No Septic Shock Present: No Progress Differential Diagnosis: FOOD BOLUS, ASPIRATION, ESOPHAGEAL TEAR Plan of Care: Orders Procedure Date/time Status RT ED ORDERS 08/06 112 Active 3 AM STILL C/O PAIN. TYLENOL #3 GIVEN. FEELS SOMEWHAT BETTER AFTER NEB TREATMENT. SOFT TISSUE NECK ORDERED. 4:45 AM ROSEMARIE CALLED - WILL SPEED UP READ. (SHARRI BANERJEE,SHILA) Diagnostic Imaging: Viewed by Me: Radiology Read. Discussed w/RAD: Radiology Read. Radiology Impression: PATIENT: HUGO NIELSEN PRESENT AGE: 30 PATIENT ACCOUNT NO: [id number] : 86 LOCATION: [facility] ORDERING PHYSICIAN: SHILA HARRELL MD SERVICE DATE: 08/06/16 EXAM TYPE: RAD - XRY-SOFT TISSUE NECK EXAMINATION: XR SOFT TISSUE NECK CLINICAL INDICATION: Choking on hard taco shell. COMPARISON: No relevant prior imaging available. TECHNIQUE: 2 views of the soft tissue neck were obtained. FINDINGS: No radiodense foreign body is visualized within the [id number] of this examination. The epiglottis is normal. The supraglottic, glottic, and subglottic airways are widely patent. The hypopharynx is unremarkable. No abnormal prevertebral soft tissue swelling. No acute osseous finding. Visualized lung apices are clear. Ventriculoperitoneal shunt tubing extends across the right neck IMPRESSION: Unremarkable soft tissue neck radiographs. DICTATED BY: BE HAYES MD DATE/TIME DICTATED:08/06/16443 CAP SIZER:HUSSEIN DATE /TIME TRANSCRIBED:08/06/16443 CONFIDENTIAL, DO NOT COPY WITHOUT APPROPRIATE AUTHORIZATION. <Electronically signed in Other Vendor System> SIGNED BY: BE HAYES MD 08/06/16 0450 Initial ED EKG: normal intervals Departure Departure Time of Disposition: 452 Disposition: HOME OR SELF CARE Condition: Stable Clinical Impression Primary Impression: Dysphagia Referrals: GABRIELLE ALLISON MD (PCP/Family) Additional Instructions: Soft diet for the next 2 days and advance as tolerated. Follow-up with your doctor in the office as needed. Departure Forms: Customer Survey General Discharge Information
[2016-08-06 04:30] VITALS: BP 120/80
--- NOTE | 2016-08-06 04:50 | RADIOLOGY REPORT ---
EXAMINATION: XR SOFT TISSUE NECK CLINICAL INDICATION: Choking on hard taco shell. COMPARISON: No relevant prior imaging available. TECHNIQUE: 2 views of the soft tissue neck were obtained. FINDINGS: No radiodense foreign body is visualized within the [id number] of this examination. The epiglottis is normal. The supraglottic, glottic, and subglottic airways are widely patent. The hypopharynx is unremarkable. No abnormal prevertebral soft tissue swelling. No acute osseous finding. Visualized lung apices are clear. Ventriculoperitoneal shunt tubing extends across the right neck IMPRESSION: Unremarkable soft tissue neck radiographs.
== END 2016-08-06 05:20 ==
LOC: ERH 00:53
DX: R13.10 Dysphagia, unspecified (principal)
CPT/HCPCS: 1263; 1395; 70360

== ENCOUNTER 2016-08-23 00:05 | Emergency (ER) | payer OTHER ==
[~2016-08-23] VITALS: Ht 152.4 cm; Wt 99.8 kg
--- NOTE | 2016-08-23 00:24 | ED GI/GU/ABDOMINAL COMPLAINT ---
History of Present Illness General Chief Complaint: Abdominal Pain/Flank Pain Stated Complaint: "PER PT STOMACH PAIN, NAUSEA" Source: patient, family, old records Exam Limitations: no limitations Vital Signs & Intake/Output Vital Signs & Intake/Output Vital Signs Date Time Temp Pulse Resp B/P B/P Pulse O2 O2 Flow FiO2 Mean Ox Delivery Rate 08/23 208 97.9 71 20 155/104 100 Room Air 08/23 0021 98.0 84 18 134/83 94 Room Air Allergies Coded Allergies: adhesive tape (Severe, ANAPHYLAXIS 08/23/16) amoxicillin (Severe, ANAPHYLAXIS 08/23/16) ampicillin (Severe, ANAPHYLAXIS 08/23/16) cefaclor (Severe, ANAPHYLAXIS 08/23/16) clavulanic acid (From AUGMENTIN) (Severe, ANAPHYLAXIS 08/23/16) clindamycin (Severe, ANAPHYLAXIS 08/23/16) latex (Severe, ANAPHYLAXIS 08/23/16) tobramycin (Severe, ANAPHYLAXIS 08/23/16) vancomycin (Severe, ANAPHYLAXIS 08/23/16) meloxicam (Intermediate, FACE SWELLING 08/23/16) morphine (Mild, HIVES 08/23/16) Penicillins (ANAPHYLAXIS 08/23/16) propofol (GI UPSET 08/23/16) Reconcile Medications Albuterol Sulfate (Proair Respiclick) 90 MCG AER.POW.BA 2 PUFF PO Q4 HRS NEEDED PRN RESPIRATORY (Reported) Albuterol Sulfate (Proair Hfa) 90 MCG HFA.AER.AD 2 PUF INH Q4-6 PRN PRN WHEEZE Albuterol Sulfate 2.5 MG/3 ML (0.083 %) VIAL.NEB 1 Vial INH/RADHA Q4P PRN wheezing Aripiprazole (Abilify) 5 MG TABLET 1 TAB PO DAILY ANXIETY/DEPRESSION ( Reported) Ciprofloxacin HCl (Cipro) 250 MG TABLET 1 TAB PO DAILY PROPHYLAXIS (Reported) Cyclobenzaprine HCl 10 MG TABLET 1 TAB PO BID MUSCLE RELAXER (Reported) Diazepam (Valium) 5 MG TABLET 1 TAB PO BID PRN ANXIETY (Reported) Escitalopram Oxalate 20 MG TABLET 1 TAB PO DAILY ANXIETY/DEPRESSION (Reported ) Gabapentin 100 MG CAPSULE 1 CAP PO TID NEUROPATHY (Reported) Hydroxyzine HCl 25 MG TABLET 1 TAB PO TID ANXIETY/DEPRESSION (Reported) Ibuprofen 800 MG TABLET 1 TAB PO BID PAIN (Reported) Metoclopramide HCl (Reglan) 10 MG TABLET 1 TAB PO TID N/V (Reported) 30 minutes before meals and bedtime Mometasone Furoate (Nasonex) 50 MCG SPRAY.PUMP 2 SPRAY NASB DAILY RHINOSINUSITIS Morphine Sulfate (Morphine Sulfate ER) 15 MG TABLET.ER 1 TAB PO BID PAIN ( Reported) [Nebulizer machine] asthma Ondansetron (Zofran Odt) 4 MG TAB.RAPDIS 1 TAB SL TID N/V (Reported) Oxycodone HCl/Acetaminophen (Percocet 7.5-325 MG Tablet) 1 EACH TABLET 1 TAB PO TID PAIN (Reported) Prednisolone 15 MG/5 ML SOLUTION 10 ML PO QDAY ASTHMA Prednisone 20 MG TABLET 1 TAB PO BID asthma Triage Note: TRIAGE: PATIENT TO ER FROM HOME W/ GENERAL[facility]ED [facility] OF ABD PAIN 01/30 ACHING X3-4 DAYS. PATIENT REPORTS +NAUSEA, DENIES V/D. PATIENT REPORTS "HAVING REGULAR BM." +DECREASED APPETITE. Triage Nurses Notes Reviewed? yes ? N Is pt currently ? No HPI: Patient presents the emergency room with a 4 day history of diffuse achy abdominal pain. The pain is constant. There are no aggravating or mitigating factors. Positive nausea and dry heaving. No diarrhea. No fevers or chills. Positive anorexia. She rates the pain as 8 out of 10. Past History Travel History Traveled to [place] past 21 day No Medical History Any Pertinent Medical History? 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 No Review of Systems Review of Systems Constitutional: Reports: no symptoms. EENTM: Reports: no symptoms. Respiratory: Reports: no symptoms. Cardiovascular: Reports: no symptoms. GI: Reports: see HPI, abdominal pain, nausea. Genitourinary: Reports: no symptoms. Musculoskeletal: Reports: no symptoms. Skin: Reports: no symptoms. Neurological/Psychological: Reports: no symptoms. Hematologic/Endocrine: Reports: no symptoms. Immunologic/Allergic: Reports: no symptoms. All Other Systems: Reviewed and Negative Physical Exam Physical Exam General Appearance: well developed/nourished, alert, awake, mild distress Head: atraumatic, normal appearance Eyes: Bilateral: PERRL, EOMI. Ears, Nose, Throat, Mouth: hearing grossly normal, DRY MUCOSA Neck: normal inspection, supple, full range of motion Respiratory: normal breath sounds, chest non-tender, no respiratory distress, lungs clear Cardiovascular: regular rate/rhythm, normal peripheral pulses Gastrointestinal: normal bowel sounds, soft, no organomegaly, tenderness ( DIFFUSELY), NO REBOUND OR GUARDING Neurologic/Psych: no motor/sensory deficits, awake, alert, oriented x 3, normal mood/affect Core Measures ACS in differential dx? No Severe Sepsis Present: No Septic Shock Present: No Progress Differential Diagnosis: appendicitis, biliary colic, cholecystitis, gastritis, hepatitis, ischemic bowel, inflamm bowel dis, pancreatitis Plan of Care: Orders Procedure Date/time Status LIPASE 08/24 23 Complete HUMAN BETA HCG SCREEN 08/24 23 Complete COMPREHENSIVE METABOLIC PANEL 08/24 23 Complete CBC WITHOUT DIFFERENTIAL 08/24 23 Complete AMYLASE 08/24 23 Complete Current Medications Sig/Jorge A Start time Last Medication Dose Stop Time Status Admin Promethazine HCl 12.5 MG ONCE ONE 08/23 030 UNVr (Phenergen) 08/23 0301 Laboratory Tests 08/23/16 0110: Anion Gap 14, Estimated GFR > 60, BUN/Creatinine Ratio 20.0, Glucose 85, Calcium 9.1, Total Bilirubin 0.8, AST 23, ALT 36, Alkaline Phosphatase 65, Total Protein 7.1, Albumin 4.1, Globulin 3.0, Albumin/Globulin Ratio 1.4, Amylase 52, Lipase 97, Total Beta HCG NEGATIVE, CBC w Diff NO MAN DIFF REQ, RBC 4.78, MCV 83.2, MCH 28.3, RDW 16.0 H, MPV 7.0 L, Gran % 60.7, Lymphocytes % 30.9, Monocytes % 4.2, Eosinophils % 3.7, Basophils % 0.5, Absolute Granulocytes 3.6, Absolute Lymphocytes 1.8, Absolute Monocytes 0.3, Absolute Eosinophils 0.2, Absolute Basophils 0, PUBS MCHC 34.1 Initial ED EKG: none Departure Departure Disposition: HOME OR SELF CARE Condition: Stable Clinical Impression Primary Impression: Vomiting Referrals: GABRIELLE ALLISON MD (PCP/Family) Additional Instructions: RETURN IF SYMPTOMS WORSEN OR FOR ANY CONCERNS Departure Forms: Customer Survey General Discharge Information Prescriptions: Current Visit Scripts Metoclopramide HCl (Reglan) 1 TAB PO 4 TIMES/DAY PRN NAUSEA #20 TAB 30 minutes before meals and bedtime
[2016-08-23 01:28] LABS: ABSOLUTE BASOPHIL COUNT 0 /CUMM (0.0-0.2); ABSOLUTE EOSINOPHIL COUNT 0.2 /CUMM (0.0-0.7); ABSOLUTE GRANULOCYTE CT 3.6 /CUMM (1.4-6.5); ABSOLUTE LYMPH COUNT 1.8 /CUMM (1.2-3.4); ABSOLUTE MONOCYTE COUNT 0.3 /CUMM (0.10-0.60); BASOPHIL % 0.5 % (0.0-2.0); EOSINOPHIL % 3.7 % (0-5); GRANULOCYTE % 60.7 % (42.2-75.2); HEMATOCRIT 39.7 % (37-47); MEAN CORPUSCULAR HGB 28.3 PG (27.0-31.0); MEAN CORPUSCULAR HGB CONC 34.1 G/DL (33.0-37.0); MEAN CORPUSCULAR VOLUME 83.2 FL (81.0-99.0); PLATELET COUNT 245 /CUMM (130-400); RED BLOOD CELL CT 4.78 /CUMM (4.20-5.40); WHITE BLOOD CELL COUNT 5.9 /CUMM (4.8-10.8)
[2016-08-23] MEDS ORDERED: REGLAN10 M1 PO (02:49)
[2016-08-23 03:22] VITALS: BP 148/84
== END 2016-08-23 03:24 ==
LOC: ERH 00:05
PROVIDERS: Emergency Medicine
DX: R11.10 Vomiting, unspecified (principal)
CPT/HCPCS: 96374; 96375; 96376; J1885; J2405; J2550

== ENCOUNTER 2016-09-14 14:01 | Emergency (ER) | payer OTHER ==
[~2016-09-14] VITALS: Ht 152.4 cm; Wt 99.8 kg
[2016-09-14 14:17] VITALS: BP 114/80
--- NOTE | 2016-09-14 16:18 | ED DYSPNEA/ASTHMA COMPLAINT ---
History of Present Illness General Chief Complaint: Wheezing/Asthma Stated Complaint: ASTHMA FLARE Source: patient, Exam Limitations: no limitations Vital Signs & Intake/Output Vital Signs & Intake/Output Vital Signs Date Time Temp Pulse Resp B/P B/P Pulse O2 O2 Flow FiO2 Mean Ox Delivery Rate 09/14 1701 82 09/14 1611 98 Room Air 09/14 1417 97.3 88 15 114/80 96 Room Air Room Air ED Intake and Output 09/15 0000 09/14 1200 Intake Total Output Total Balance Patient 220 lb Weight Allergies Coded Allergies: adhesive tape (Severe, ANAPHYLAXIS 09/14/16) amoxicillin (Severe, ANAPHYLAXIS 09/14/16) ampicillin (Severe, ANAPHYLAXIS 09/14/16) cefaclor (Severe, ANAPHYLAXIS 09/14/16) clavulanic acid (From AUGMENTIN) (Severe, ANAPHYLAXIS 09/14/16) clindamycin (Severe, ANAPHYLAXIS 09/14/16) latex (Severe, ANAPHYLAXIS 09/14/16) tobramycin (Severe, ANAPHYLAXIS 09/14/16) vancomycin (Severe, ANAPHYLAXIS 09/14/16) meloxicam (Intermediate, FACE SWELLING 09/14/16) morphine (Mild, HIVES 09/14/16) Penicillins (ANAPHYLAXIS 09/14/16) propofol (GI UPSET 09/14/16) Reconcile Medications Albuterol Sulfate (Proair Respiclick) 90 MCG AER.POW.BA 2 PUFF PO Q4 HRS NEEDED PRN RESPIRATORY (Reported) Albuterol Sulfate (Proair Hfa) 90 MCG HFA.AER.AD 2 PUF INH Q4-6 PRN PRN WHEEZE Albuterol Sulfate 2.5 MG/3 ML (0.083 %) VIAL.NEB 1 Vial INH/RADHA Q4P PRN wheezing Aripiprazole (Abilify) 5 MG TABLET 1 TAB PO DAILY ANXIETY/DEPRESSION ( Reported) Ciprofloxacin HCl (Cipro) 250 MG TABLET 1 TAB PO DAILY PROPHYLAXIS (Reported) Cyclobenzaprine HCl 10 MG TABLET 1 TAB PO BID MUSCLE RELAXER (Reported) Diazepam (Valium) 5 MG TABLET 1 TAB PO BID PRN ANXIETY (Reported) Escitalopram Oxalate 20 MG TABLET 1 TAB PO DAILY ANXIETY/DEPRESSION (Reported ) Gabapentin 100 MG CAPSULE 1 CAP PO TID NEUROPATHY (Reported) Hydroxyzine HCl 25 MG TABLET 1 TAB PO TID ANXIETY/DEPRESSION (Reported) Ibuprofen 800 MG TABLET 1 TAB PO BID PAIN (Reported) Methylprednisolone. (Medrol) 4 MG TAB.DS.PK 1 DP PO AD airways 6 on day 1 then reduce by one tablet daily until gone Metoclopramide HCl (Reglan) 10 MG TABLET 1 TAB PO TID N/V (Reported) 30 minutes before meals and bedtime Metoclopramide HCl (Reglan) 10 MG TABLET 1 TAB PO 4 TIMES/DAY PRN NAUSEA 30 minutes before meals and bedtime Mometasone Furoate (Nasonex) 50 MCG SPRAY.PUMP 2 SPRAY NASB DAILY RHINOSINUSITIS Morphine Sulfate (Morphine Sulfate ER) 15 MG TABLET.ER 1 TAB PO BID PAIN ( Reported) [Nebulizer machine] asthma Ondansetron (Zofran Odt) 4 MG TAB.RAPDIS 1 TAB SL TID N/V (Reported) Oxycodone HCl/Acetaminophen (Percocet 7.5-325 MG Tablet) 1 EACH TABLET 1 TAB PO TID PAIN (Reported) Prednisolone 15 MG/5 ML SOLUTION 10 ML PO QDAY ASTHMA Prednisone 20 MG TABLET 1 TAB PO BID asthma Triage Note: PT TO ED FOR C/C OF DIFFICULTY BREATHING FOR THE LAST HOUR. PT TOOK RESCUE INHALER WITHOUT RELIEF. REPORTS RIB PAIN. +NON-PRODUCTIVE COUGH. O2 WNL IN TRIAGE NO ACUTE DISTRESS NOTED. Triage Nurses Notes Reviewed? yes : No Patient currently breastfeeds: No HPI: Patient presents for evaluation of difficulty breathing beginning earlier this morning. Patient has been using her pro-air and Advair inhalers without improvement. She denies any associated fever or cold symptoms but has had a nonproductive cough. She had a recent cardiac catheterization that was normal. She has been seen by a project management intern who suspects an underlying lung disease but no specific diagnosis has been made. It addition the patient is having chest tenderness that worsens with deep inspiration and palpation. This is typical of her dyspneic episodes. Past History Travel History Traveled to [place] past 21 day No Medical History Any Pertinent Medical History? 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 No Review of Systems Review of Systems Constitutional: Reports: no symptoms. EENTM: Reports: no symptoms. Respiratory: Reports: see HPI. Cardiovascular: Reports: no symptoms. GI: Reports: no symptoms. Genitourinary: Reports: no symptoms. Musculoskeletal: Reports: no symptoms. Skin: Reports: no symptoms. Neurological/Psychological: Reports: no symptoms. Hematologic/Endocrine: Reports: no symptoms. Immunologic/Allergic: Reports: no symptoms. All Other Systems: Reviewed and Negative Physical Exam Physical Exam Respiratory: SEE BELOW Comments: Gen.: Well-nourished, well-developed, no acute respiratory distress. Wheelchair -bound. Head: Normocephalic, atraumatic. Eyes: Normal inspection bilaterally Ears: Normal inspection bilaterally Nose: Normal inspection Throat/mouth : Moist mucosa Neck: Supple, full range of motion, no goiter Heart: Regular rate and rhythm, no murmurs rubs or gallops Lungs: Clear to auscultation bilaterally with normal air entry Chest: Bilateral chest tenderness Back: Normal range of motion Abdomen: Soft, nontender, nondistended, normal bowel sounds Extremities: Normal range of motion grossly, equal radial pulses, no cyanosis clubbing or edema of the upper extremities, flaccid lower extremities secondary to paraplegia, right wrist splint as a result of the recent cardiac catheterization Neurologic: Cranial nerves grossly intact, speech is clear Skin: warm and dry Psychiatric: Calm, cooperative, no apparent delusions or hallucinations Core Measures ACS in differential dx? No Severe Sepsis Present: No Septic Shock Present: No Progress Differential Diagnosis: asthma, bronchitis, CHF, COPD, pneumonia Plan of Care: see notes Initial ED EKG: none Comments: 09/14/2016 4:20:36 PM patient's case discussed with Dr. Gonzalez who feels patient may be suffering from reactive airway disease and recommends Medrol Dosepak. 09/14/2016 4:48:13 PM Lena has been evaluated by Dr. Gonzalez in ED who confirms his recommendation of a Medrol Dosepak. He feels pt has an unspecified reactive airway disease. Patient is in agreement with tx. Departure Departure Disposition: HOME OR SELF CARE Condition: Stable Clinical Impression Primary Impression: Reactive airway disease Qualifiers: Asthma severity: mild intermittent Asthma complication type: uncomplicated Qualified Code: J45.20 - Mild intermittent asthma, uncomplicated Referrals: GABRIELLE ALLISON MD (PCP/Family) Additional Instructions: Medrol Dosepak as prescribed. Follow-up with Dr. Gonzalez as discussed. Return if any concerns or sudden worsening. Thank you for choosing the [facility] Department for your care. It was a pleasure to serve you today. Cameron Kelly M.D. [facility] Departure Forms: Customer Survey General Discharge Information Prescriptions: Current Visit Scripts Methylprednisolone. (Medrol) 1 DP PO AD #1 DP 6 on day 1 then reduce by one tablet daily until gone Critical Care Note Critical Care Note Critical Care Time: 30-74 min
[2016-09-14] MEDS ORDERED: NORCO 5-325 TA1 EACH PO (16:22)
[2016-09-14] MEDS ORDERED: KETOROLAC TROME10 M1 PO (16:22)
[2016-09-14] MEDS ORDERED: MEDROL4 M2 PO (16:49)
--- NOTE | 2016-09-14 17:06 | Cons- Pulmonary ---
General Information and HPI Consulting Request Date of Consult: 09/14/16 Requested By: Dr. Vallecillo Reason for Consult: Reactive airway disease exacerbation Source of Information: patient History of Present Illness: 30 year old woman. Known from office. Called by ED for asthma/reactive airways exacerbation. Patient requesting breathing treatment. No sick contacts, no chest pain, no n/v/d/c. Hx of spina bifida. Relatively stable, no obvious wheezing, however diminished breath sounds. Stable for DC. Allergies/Medications Allergies: Coded Allergies: adhesive tape (Severe, ANAPHYLAXIS 09/14/16) amoxicillin (Severe, ANAPHYLAXIS 09/14/16) ampicillin (Severe, ANAPHYLAXIS 09/14/16) cefaclor (Severe, ANAPHYLAXIS 09/14/16) clavulanic acid (From AUGMENTIN) (Severe, ANAPHYLAXIS 09/14/16) clindamycin (Severe, ANAPHYLAXIS 09/14/16) latex (Severe, ANAPHYLAXIS 09/14/16) tobramycin (Severe, ANAPHYLAXIS 09/14/16) vancomycin (Severe, ANAPHYLAXIS 09/14/16) meloxicam (Intermediate, FACE SWELLING 09/14/16) morphine (Mild, HIVES 09/14/16) Penicillins (ANAPHYLAXIS 09/14/16) propofol (GI UPSET 09/14/16) Home Med List: Albuterol Sulfate (Proair Respiclick) 90 MCG AER.POW.BA 2 PUFF PO Q4 HRS NEEDED PRN RESPIRATORY (Reported) Albuterol Sulfate (Proair Hfa) 90 MCG HFA.AER.AD 2 PUF INH Q4-6 PRN PRN WHEEZE Albuterol Sulfate 2.5 MG/3 ML (0.083 %) VIAL.NEB 1 Vial INH/RADHA Q4P PRN wheezing Aripiprazole (Abilify) 5 MG TABLET 1 TAB PO DAILY ANXIETY/DEPRESSION ( Reported) Ciprofloxacin HCl (Cipro) 250 MG TABLET 1 TAB PO DAILY PROPHYLAXIS (Reported) Cyclobenzaprine HCl 10 MG TABLET 1 TAB PO BID MUSCLE RELAXER (Reported) Diazepam (Valium) 5 MG TABLET 1 TAB PO BID PRN ANXIETY (Reported) Escitalopram Oxalate 20 MG TABLET 1 TAB PO DAILY ANXIETY/DEPRESSION (Reported ) Gabapentin 100 MG CAPSULE 1 CAP PO TID NEUROPATHY (Reported) Hydroxyzine HCl 25 MG TABLET 1 TAB PO TID ANXIETY/DEPRESSION (Reported) Ibuprofen 800 MG TABLET 1 TAB PO BID PAIN (Reported) Methylprednisolone. (Medrol) 4 MG TAB.DS.PK 1 DP PO AD airways 6 on day 1 then reduce by one tablet daily until gone Metoclopramide HCl (Reglan) 10 MG TABLET 1 TAB PO TID N/V (Reported) 30 minutes before meals and bedtime Metoclopramide HCl (Reglan) 10 MG TABLET 1 TAB PO 4 TIMES/DAY PRN NAUSEA 30 minutes before meals and bedtime Mometasone Furoate (Nasonex) 50 MCG SPRAY.PUMP 2 SPRAY NASB DAILY RHINOSINUSITIS Morphine Sulfate (Morphine Sulfate ER) 15 MG TABLET.ER 1 TAB PO BID PAIN ( Reported) [Nebulizer machine] asthma Ondansetron (Zofran Odt) 4 MG TAB.RAPDIS 1 TAB SL TID N/V (Reported) Oxycodone HCl/Acetaminophen (Percocet 7.5-325 MG Tablet) 1 EACH TABLET 1 TAB PO TID PAIN (Reported) Prednisolone 15 MG/5 ML SOLUTION 10 ML PO QDAY ASTHMA Prednisone 20 MG TABLET 1 TAB PO BID asthma Review of Systems Comments see HPI pertinent positives and negatives reviewed 18 point discussed see HPI Past History Travel History Traveled to [place] past 21 day No Medical History 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 spouse Primary Language: Yoruba ETOH Use: denies use Illicit Drug Use: denies illicit drug use Living Will? no Functional Ability ADLs Independent: dressing, eating, toileting, bathing. Ambulation: wheel chair Exam & Diagnostic Data Last 24 Hrs of Vital Signs/I&O Vital Signs Date Time Temp Pulse Resp B/P B/P Pulse O2 O2 Flow FiO2 Mean Ox Delivery Rate 09/14 1701 82 09/14 1611 98 Room Air 09/14 1417 97.3 88 15 114/80 96 Room Air Room Air Physical Exam Other Physical Findings: gen awake and alert heent ncat cvs s1, s2 lungs rare rhonchi with diminshed bs at bases abd soft bs+ ext edematous at baselne Last 48 Hrs of Labs/Miguel Ángel: na Assessment/Plan Impression/Plan: Impression 30 year old woman * exacerbation of reactive airway disease Plan -f/u in office -medrol dose freya -continue advair -continue albuterol -joaquin for dc Consult Acknowledgment - Thank you for your consult request.
[2016-10-13] MEDS ORDERED: CHERATUSSIN AC118 M1 PO (10:27)
== END 2016-09-14 17:02 ==
LOC: ERH 14:01
DX: J45.909 Unspecified asthma, uncomplicated (principal)

== ENCOUNTER 2016-10-05 21:16 | Emergency (ER) | payer OTHER ==
[~2016-10-05] VITALS: Ht 154.9 cm; Wt 90.7 kg
[~2016-10-05 21:16] MED LIST changes: +KETOROLAC TROME10 M1 PO; +NORCO 5-325 TA1 EACH PO
[2016-10-05 21:26] VITALS: BP 134/85
[2016-10-05] MEDS ORDERED: NUCYNTA50 M1 PO (21:42)
[2016-10-05] MEDS ORDERED: OXYCODONE-ACET1 EAC1 PO (21:43)
--- NOTE | 2016-10-05 21:52 | ED UPPER/LOWER EXTREMITY COMPL ---
History of Present Illness General Chief Complaint: General Adult Stated Complaint: "SI INJECTION SHOT, L HIP PAIN" PER PT Source: patient Exam Limitations: no limitations Vital Signs & Intake/Output Vital Signs & Intake/Output Vital Signs Date Time Temp Pulse Resp B/P B/P Pulse O2 O2 Flow FiO2 Mean Ox Delivery Rate 10/05 2125 97.2 81 16 134/85 97 Room Air Allergies Coded Allergies: adhesive tape (Severe, ANAPHYLAXIS 09/14/16) amoxicillin (Severe, ANAPHYLAXIS 09/14/16) ampicillin (Severe, ANAPHYLAXIS 09/14/16) cefaclor (Severe, ANAPHYLAXIS 09/14/16) clavulanic acid (From AUGMENTIN) (Severe, ANAPHYLAXIS 09/14/16) clindamycin (Severe, ANAPHYLAXIS 09/14/16) latex (Severe, ANAPHYLAXIS 09/14/16) tobramycin (Severe, ANAPHYLAXIS 09/14/16) vancomycin (Severe, ANAPHYLAXIS 09/14/16) meloxicam (Intermediate, FACE SWELLING 09/14/16) morphine (Mild, HIVES 09/14/16) Penicillins (ANAPHYLAXIS 09/14/16) propofol (GI UPSET 09/14/16) Reconcile Medications Albuterol Sulfate (Proair Respiclick) 90 MCG AER.POW.BA 2 PUFF PO Q4 HRS NEEDED PRN RESPIRATORY (Reported) Albuterol Sulfate 2.5 MG/3 ML (0.083 %) VIAL.NEB 1 Vial INH/RADHA Q4P PRN wheezing Ciprofloxacin HCl (Cipro) 250 MG TABLET 1 TAB PO DAILY PROPHYLAXIS (Reported) Diazepam (Valium) 5 MG TABLET 1 TAB PO BID PRN ANXIETY (Reported) Escitalopram Oxalate 20 MG TABLET 1 TAB PO DAILY ANXIETY/DEPRESSION (Reported ) Gabapentin 100 MG CAPSULE 1 CAP PO TID NEUROPATHY (Reported) Hydroxyzine HCl 25 MG TABLET 1 TAB PO TID ANXIETY/DEPRESSION (Reported) Ibuprofen 800 MG TABLET 1 TAB PO BID PAIN (Reported) Methylprednisolone. (Medrol) 4 MG TAB.DS.PK 1 DP PO AD hip pain 6 on day 1 then reduce by one tablet daily until gone Metoclopramide HCl (Reglan) 10 MG TABLET 1 TAB PO 4 TIMES/DAY PRN NAUSEA 30 minutes before meals and bedtime Mometasone Furoate (Nasonex) 50 MCG SPRAY.PUMP 2 SPRAY NASB DAILY RHINOSINUSITIS Oxycodone HCl/Acetaminophen (Oxycodone-Acetaminophen 10-325) 10 MG-325 MG TABLET 1 TAB PO TID PRN PAIN (Reported) Tapentadol HCl (Nucynta) 50 MG TABLET 1 TAB PO BID PAIN (Reported) Triage Note: RECEIVED 31 YO FEMALE S/P SI INJECTION IN LEFT GLUTEAL AREA YESTERDAY. TODAY, WORSENING PAIN TO LEFT HIP RADIATING TO KNEE WITH SWELLING Triage Nurses Notes Reviewed? yes Onset: Abrupt Duration: day(s):, constant Timing: recent history Severity: moderate, severe Pain/Injury Location: Left: Hip. No Modifying Factors: none : No Patient currently breastfeeds: No HPI: 31-year-old female comes into emergency room for further evaluation of left hip pain. Patient reports that she got an SI joint injection yesterday. Patient reports the pain radiates down to her knee. Sharp. Continuous. Nonradiating. Denies any associated symptoms. Past History Travel History Traveled to [place] past 21 day No Medical History Any Pertinent Medical History? see below for history Neurological: STARCH MANGLE TENDER SHUNT EENT: NONE Cardiovascular: CARDIAC CATH 07/12/16 Respiratory: NONE Gastrointestinal: NONE Hepatic: cholelithiasis Renal: nephrolithiasis, SELF CATHETERIZATION neurogenic bladder Musculoskeletal: SPINA BIFIDA BACK PAIN COSTOCHONDRITIS Psychiatric: NONE Endocrine: NONE Blood Disorders: NONE Cancer(s): NONE ASSURANCE MANAGER/Reproductive: NONE Other Medical Hx: STARCH MANGLE TENDER shunt History of MRSA: No History of VRE: No History of CDIFF: No Surgical History Surgical History: none Psychosocial History Who do you live with Family What is your primary language Cape Verdean Tobacco Use: Never used Family History Family History, If Any: FATHER FH: lung cancer Hx Contributory? No Review of Systems Review of Systems Constitutional: Reports: no symptoms. EENTM: Reports: no symptoms. Respiratory: Reports: no symptoms. Cardiovascular: Reports: no symptoms. Gastrointestinal/Abdominal: Reports: no symptoms. Genitourinary: Reports: no symptoms. Musculoskeletal: Reports: see HPI. Skin: Reports: no symptoms. Neurological/Psychological: Reports: no symptoms. Hematologic/Endocrine: Reports: no symptoms. Immunological: Reports: no symptoms. All Other Systems: Reviewed and Negative Physical Exam Physical Exam General Appearance: well developed/nourished, mild distress Head: atraumatic Eyes: Bilateral: normal appearance. Ears, Nose, Throat: normal ENT inspection, hearing grossly normal Neck: normal inspection Cardiovascular/Respiratory: no respiratory distress Back: normal inspection Hip Left: normal range of motion, normal inspection, soft tissue tenderness, injection site has no erythema, no warmth, no induration, Neurologic/Tendon: responds to pain Skin: intact, normal color, warm/dry Lymphatic: no anterior cervical gold Progress Differential Diagnosis: arterial insufficiency, cellulitis, contusion, DVT, fracture, septic arthritis, sprain, tendon injury Plan of Care: Current Medications Sig/Jorge A Start time Last Medication Dose Stop Time Status Admin Ketorolac 60 MG ONCE ONE 10/05 2199 UNVr 10/05 Tromethamine 10/05 (Toradol) Departure Departure Disposition: HOME OR SELF CARE Condition: Stable Clinical Impression Primary Impression: Left hip pain Referrals: GABRIELLE ALLISON MD (PCP/Family) Additional Instructions: Take Medrol Dosepak as prescribed. Return if any concerns worsening symptoms. Follow-up with your pain doctor. Please go over all results of today's visit with your primary care doctor. Contact your primary care doctor to let them know you were here in the emergency room. There may be nonspecific findings which may not be related to your visit today here in the emergency room but may require further evaluation and chronic monitoring by your primary care doctor. If you had a laceration today the chance of foreign body always remains. You should follow-up with your primary care doctor for recheck in 3-5 days for a wound check. If you had an x-ray done there is a chance that a fracture could have been missed on initial read and you should follow-up with your primary care doctor for repeat x-rays if symptoms persist. If your blood pressure was elevated here in the emergency room please have rechecked by her primary care doctor within the next 48 hours by your primary care doctor. If you were prescribed a narcotic here in the emergency room or any type of controlled substances you're not allowed to drive while taking this medication or operate any type of heavy machinery. Narcotics can make you feel lightheaded dizziness nausea and can cause constipation. You may need to pickling solution maker a stool softener. Thank you for choosing [facility] emergency room. Please return to the emergency room immediately if you have any other concerns worsening of symptoms. Departure Forms: Customer Survey General Discharge Information Prescriptions: Current Visit Scripts Methylprednisolone. (Medrol) 1 DP PO AD #1 DP 6 on day 1 then reduce by one tablet daily until gone Comments 10/05/2016 10:03:39 PM No signs of infection. Follow-up with pain doctor. Return if any concerns worsening symptoms.
[2016-10-05] MEDS ORDERED: MEDROL4 M2 PO (21:54)
== END 2016-10-05 22:03 ==
LOC: ERH 21:16
DX: M25.552 Pain in left hip (principal)
CPT/HCPCS: 96372; J1885

== ENCOUNTER 2016-10-10 07:19 | Emergency (ER) | payer OTHER ==
[~2016-10-10] VITALS: Ht 152.4 cm; Wt 99.8 kg
[~2016-10-10 07:19] MED LIST changes: +NUCYNTA50 M1 PO; +OXYCODONE-ACET1 EAC1 PO
--- NOTE | 2016-10-10 08:15 | ED DYSPNEA/ASTHMA COMPLAINT ---
History of Present Illness General Chief Complaint: Dyspnea (COPD, CHF, Other) Stated Complaint: DIFFICULTY BREATHING Source: patient, old records Exam Limitations: no limitations Vital Signs & Intake/Output Vital Signs & Intake/Output Vital Signs Date Time Temp Pulse Resp B/P B/P Pulse O2 O2 Flow FiO2 Mean Ox Delivery Rate 10/10 0930 96.9 99 18 118/68 97 Room Air 10/10 0919 100 10/10 0827 99 10/10 0802 Room Air 10/10 0742 96.4 81 18 101/70 96 Room Air Allergies Coded Allergies: adhesive tape (Severe, ANAPHYLAXIS 09/14/16) amoxicillin (Severe, ANAPHYLAXIS 09/14/16) ampicillin (Severe, ANAPHYLAXIS 09/14/16) cefaclor (Severe, ANAPHYLAXIS 09/14/16) clavulanic acid (From AUGMENTIN) (Severe, ANAPHYLAXIS 09/14/16) clindamycin (Severe, ANAPHYLAXIS 09/14/16) latex (Severe, ANAPHYLAXIS 09/14/16) tobramycin (Severe, ANAPHYLAXIS 09/14/16) vancomycin (Severe, ANAPHYLAXIS 09/14/16) meloxicam (Intermediate, FACE SWELLING 09/14/16) morphine (Mild, HIVES 09/14/16) Penicillins (ANAPHYLAXIS 09/14/16) propofol (GI UPSET 09/14/16) Reconcile Medications Albuterol Sulfate (Proair Respiclick) 90 MCG AER.POW.BA 2 PUFF PO Q4 HRS NEEDED PRN RESPIRATORY (Reported) Albuterol Sulfate 2.5 MG/3 ML (0.083 %) VIAL.NEB 1 Vial INH/RADHA Q4P PRN wheezing Ciprofloxacin HCl (Cipro) 250 MG TABLET 1 TAB PO DAILY PROPHYLAXIS (Reported) Diazepam (Valium) 5 MG TABLET 1 TAB PO BID PRN ANXIETY (Reported) Escitalopram Oxalate 20 MG TABLET 1 TAB PO DAILY ANXIETY/DEPRESSION (Reported ) Gabapentin 100 MG CAPSULE 1 CAP PO TID NEUROPATHY (Reported) Hydroxyzine HCl 25 MG TABLET 1 TAB PO TID ANXIETY/DEPRESSION (Reported) Ibuprofen 800 MG TABLET 1 TAB PO BID PAIN (Reported) Methylprednisolone. (Medrol) 4 MG TAB.DS.PK 1 DP PO AD hip pain 6 on day 1 then reduce by one tablet daily until gone Metoclopramide HCl (Reglan) 10 MG TABLET 1 TAB PO 4 TIMES/DAY PRN NAUSEA 30 minutes before meals and bedtime Mometasone Furoate (Nasonex) 50 MCG SPRAY.PUMP 2 SPRAY NASB DAILY RHINOSINUSITIS Oxycodone HCl/Acetaminophen (Oxycodone-Acetaminophen 10-325) 10 MG-325 MG TABLET 1 TAB PO TID PRN PAIN (Reported) Tapentadol HCl (Nucynta) 50 MG TABLET 1 TAB PO BID PAIN (Reported) Triage Note: PT TO ED FOR "REACTIVE AIRWAY DISEASE" LUNGS CTA, NO SOB NOTED. SPEAKING IN FULL, CLEAR SENTENCES. PT REQUESTING A NEB TX AND STEROIDS. Triage Nurses Notes Reviewed? yes Onset: Abrupt Duration: hour(s):, constant, continues in ED Severity: mild, moderate : No Patient currently breastfeeds: No HPI: 31-year-old female comes into emergency room with complaints of shortness of breath morning. Denies any fever. Nonproductive cough that is mild. Patient reports that she has a history of airway disease in her airways close off from time to time. This happens in the humidity which it has been very humid out today. Denies any vomiting. Denies any other associated symptoms. (ANNAMARIA SOUTH) Past History Travel History Traveled to [place] past 21 day No Medical History Any Pertinent Medical History? 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 EENT: NONE Cardiovascular: CARDIAC CATH 07/12/16 Respiratory: NONE Gastrointestinal: NONE Hepatic: cholelithiasis Renal: nephrolithiasis, SELF CATHETERIZATION neurogenic bladder Musculoskeletal: SPINA BIFIDA BACK PAIN COSTOCHONDRITIS Psychiatric: NONE Endocrine: NONE Blood Disorders: NONE Cancer(s): NONE DIRECTOR OF AGRONOMY/Reproductive: NONE Other Medical Hx: ULTIMATE HOOPS SCOREBOARD OPERATOR shunt History of MRSA: No History of VRE: No History of CDIFF: No Surgical History Surgical History: none Psychosocial History Who do you live with Family What is your primary language Mongolian Tobacco Use: Never used ETOH Use: denies use Illicit Drug Use: denies illicit drug use Family History Family History, If Any: FATHER FH: lung cancer Hx Contributory? No (ANNAMARIA SOUTH) Review of Systems Review of Systems Constitutional: Reports: no symptoms. EENTM: Reports: no symptoms. Respiratory: Reports: see HPI. Cardiovascular: Reports: no symptoms. GI: Reports: no symptoms. Genitourinary: Reports: no symptoms. Musculoskeletal: Reports: no symptoms. Skin: Reports: no symptoms. Neurological/Psychological: Reports: no symptoms. Hematologic/Endocrine: Reports: no symptoms. Immunologic/Allergic: Reports: no symptoms. All Other Systems: Reviewed and Negative (ANNAMARIA SOUTH) Physical Exam Physical Exam General Appearance: well developed/nourished, no apparent distress, alert, awake Head: atraumatic, normal appearance Eyes: Bilateral: normal appearance. Ears, Nose, Throat: normal ENT inspection, hearing grossly normal Neck: normal inspection Respiratory: no respiratory distress, decreased breath sounds (mildly decreased) Cardiovascular: regular rate/rhythm Neurologic/Psych: awake, alert, oriented x 3 Skin: intact, normal color Core Measures ACS in differential dx? No Severe Sepsis Present: No Septic Shock Present: No (ANNAMARIA SOUTH) Progress Differential Diagnosis: asthma, AMI, bronchitis, costochondritis, COPD, pericarditis, pulmonary embolism, pneumonia, pneumothorax, unstable angina Plan of Care: Current Medications Sig/Jorge A Start time Last Medication Dose Stop Time Status Admin Albuterol Sulfate 3 ML ONCE ONE 10/10 814 UNVr (Proventil) 10/11 815 Ipratropium [place] 2.5 ML ONCE ONE 10/10 814 UNVr (Atrovent) 10/11 815 Prednisone 40 MG ONCE ONE 10/10 814 UNVr 10/10 0816 Initial ED EKG: none (ANNAMARIA SOUTH) Departure Departure Disposition: HOME OR SELF CARE Condition: Stable Clinical Impression Primary Impression: Reactive airway disease Referrals: GABRIELLE ALLISON MD (PCP/Family) Additional Instructions: Continue to use your breathing pump at home. Take your pain medication as needed. Return if any concerns worsening symptoms. Fill Medrol Dosepak that was prescribed to the other day. Please go over all results of today's visit with your primary care doctor. Contact your primary care doctor to let them know you were here in the emergency room. There may be nonspecific findings which may not be related to your visit today here in the emergency room but may require further evaluation and chronic monitoring by your primary care doctor. If you had a laceration today the chance of foreign body always remains. You should follow-up with your primary care doctor for recheck in 3-5 days for a wound check. If you had an x-ray done there is a chance that a fracture could have been missed on initial read and you should follow-up with your primary care doctor for repeat x-rays if symptoms persist. If your blood pressure was elevated here in the emergency room please have rechecked by her primary care doctor within the next 48 hours by your primary care doctor. If you were prescribed a narcotic here in the emergency room or any type of controlled substances you're not allowed to drive while taking this medication or operate any type of heavy machinery. Narcotics can make you feel lightheaded dizziness nausea and can cause constipation. You may need to pickle pumper a stool softener. Thank you for choosing [facility] emergency room. Please return to the emergency room immediately if you have any other concerns worsening of symptoms. Departure Forms: Customer Survey General Discharge Information Comments 10/10/2016 12:16:43 PM Patient clinically looks well. Patient is in no apparent distress. Resting comfortably in hallway. Nontoxic-appearing. Difficulty breathing is consistent with her previous reactive airway disease. Chest wall tenderness is reproducible that she started to complain of after her first nebulizer treatment. She can follow-up with her sanitation inspector. Return if any other concerns worsening symptoms. Patient has been seen here many times for similar symptoms in the past. I do not have any suspicion for pulmonary embolism or acute cardiac event going on. Patient is followed up by multiple specialists with no acute findings. Patient can follow-up with her primary care doctor and sanitation inspector as needed. Case discussed with Dr. go. Patient understands and agrees with plan of care. (ANNAMARIA SOUTH) PA/COINING PRESS OPERATOR Co-Sign Statement Statement: ED Attending supervision documentation- [] I saw and evaluated the patient. I have also reviewed all the pertinent lab results and diagnostic results. I agree with the findings and the plan of care as documented in the PA's/COINING PRESS OPERATOR's documentation. [X] I have reviewed the ED Record and agree with the PA's/COINING PRESS OPERATOR's documentation. [] Additions or exceptions (if any) to the PAs/COINING PRESS OPERATOR's note and plan are summarized below: [] (SHARRI BANERJEE,SHILA) Critical Care Note Critical Care Note Critical Care Time: non-applicable (ANNAMARIA SOUTH)
[2016-10-10 09:30] VITALS: BP 118/68
[2016-10-11] MEDS ORDERED: PREDNISONE10 M2 PO (09:06)
[2016-10-11] MEDS ORDERED: nebulizer machine (09:26)
[2016-10-13] MEDS ORDERED: CHERATUSSIN AC118 M1 PO (10:27)
== END 2016-10-10 10:19 ==
LOC: ERH 07:19
DX: J45.909 Unspecified asthma, uncomplicated (principal)
CPT/HCPCS: 1263; 96372; J1885

== ENCOUNTER 2016-10-11 07:44 | Emergency (ER) | payer OTHER ==
[~2016-10-11] VITALS: Ht 149.9 cm; Wt 99.8 kg
--- NOTE | 2016-10-11 07:53 | ED DYSPNEA/ASTHMA COMPLAINT ---
History of Present Illness General Chief Complaint: Dyspnea (COPD, CHF, Other) Stated Complaint: SOB Source: patient, old records Exam Limitations: no limitations Vital Signs & Intake/Output Vital Signs & Intake/Output ED Intake and Output 10/12 0000 10/11 1200 Intake Total 120 Output Total Balance 120 Intake, Oral 120 Patient 220 lb Weight Weight Reported by Patient Measurement Method Allergies Coded Allergies: adhesive tape (Severe, ANAPHYLAXIS 09/14/16) amoxicillin (Severe, ANAPHYLAXIS 09/14/16) ampicillin (Severe, ANAPHYLAXIS 09/14/16) cefaclor (Severe, ANAPHYLAXIS 09/14/16) clavulanic acid (From AUGMENTIN) (Severe, ANAPHYLAXIS 09/14/16) clindamycin (Severe, ANAPHYLAXIS 09/14/16) latex (Severe, ANAPHYLAXIS 09/14/16) tobramycin (Severe, ANAPHYLAXIS 09/14/16) vancomycin (Severe, ANAPHYLAXIS 09/14/16) meloxicam (Intermediate, FACE SWELLING 09/14/16) morphine (Mild, HIVES 09/14/16) Penicillins (ANAPHYLAXIS 09/14/16) propofol (GI UPSET 09/14/16) Reconcile Medications Albuterol Sulfate (Proair Respiclick) 90 MCG AER.POW.BA 2 PUFF PO Q4 HRS NEEDED PRN RESPIRATORY (Reported) Albuterol Sulfate 2.5 MG/3 ML (0.083 %) VIAL.NEB 1 Vial INH/RADHA Q4P PRN wheezing Diazepam (Valium) 5 MG TABLET 1 TAB PO BID PRN ANXIETY (Reported) Escitalopram Oxalate 20 MG TABLET 1 TAB PO DAILY ANXIETY/DEPRESSION (Reported ) Gabapentin 100 MG CAPSULE 1 CAP PO TID NEUROPATHY (Reported) Hydroxyzine HCl 25 MG TABLET 1 TAB PO TID ANXIETY/DEPRESSION (Reported) Ibuprofen 800 MG TABLET 1 TAB PO BID PAIN (Reported) Methylprednisolone. (Medrol) 4 MG TAB.DS.PK 1 DP PO AD hip pain 6 on day 1 then reduce by one tablet daily until gone Metoclopramide HCl (Reglan) 10 MG TABLET 1 TAB PO 4 TIMES/DAY PRN NAUSEA 30 minutes before meals and bedtime Mometasone Furoate (Nasonex) 50 MCG SPRAY.PUMP 2 SPRAY NASB DAILY RHINOSINUSITIS [nebulizer machine] use as directed Oxycodone HCl/Acetaminophen (Oxycodone-Acetaminophen 10-325) 10 MG-325 MG TABLET 1 TAB PO TID PRN PAIN (Reported) Prednisone 10 MG TABLET 0 PO DAILY asthma 5 tabs po day 1 4 tabs po day 2 3 tabs po day 3 2 tabs po day 4 1 tab po day 5 Tapentadol HCl (Nucynta) 50 MG TABLET 1 TAB PO BID PAIN (Reported) Triage Note: PT TO ED FOR SOB, SEEN HERE YESTERDAY FOR SAME - STATING SHE FELT BETTER AFTER NEB AND PREDNISONE YESTERDAY. WAS UNABLE TO FILL PREDNISONE SCRIPT. REQUESTING ANOTHER NEB AND PREDNISONE. Triage Nurses Notes Reviewed? yes Onset: Abrupt Duration: hour(s): (10), constant Timing: recent history Severity: mild, moderate Activities at Onset: none Prior Episodes/Possible Cause: frequent episodes Associated Symptoms: cough : No Patient currently breastfeeds: No HPI: 31 Year old female with history of reactive airway disease presents to ER for evaluation complaining of dyspnea, nonproductive cough since 10:30 last night. She was seen in this ER yesterday for the same is feeling better after breathing treatment and be medicated with prednisone however states his symptoms came back last night she was unable to get the prednisone filled. She has been using her 2 inhalers without improvement no fever no chills no chest pain no abdominal pain nausea vomiting diarrhea. She does not smoke she has an appointment with her direct entry midwife next week (ELLA GARCIA) Past History Travel History Traveled to [place] past 21 day No Medical History Any Pertinent Medical History? 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 EENT: NONE Cardiovascular: CARDIAC CATH 07/12/16 Respiratory: NONE Gastrointestinal: NONE Hepatic: cholelithiasis Renal: nephrolithiasis, SELF CATHETERIZATION neurogenic bladder Musculoskeletal: SPINA BIFIDA BACK PAIN COSTOCHONDRITIS Psychiatric: NONE Endocrine: NONE Blood Disorders: NONE Cancer(s): NONE APRON OPERATOR/Reproductive: NONE Other Medical Hx: HOTBED OPERATOR shunt History of MRSA: No History of VRE: No History of CDIFF: No Surgical History Surgical History: none Psychosocial History Who do you live with Family What is your primary language Latvian Tobacco Use: Never used ETOH Use: denies use Illicit Drug Use: denies illicit drug use Family History Family History, If Any: FATHER FH: lung cancer Hx Contributory? No (ELLA GARCIA) Review of Systems Review of Systems Constitutional: Reports: see HPI. All Other Systems: Reviewed and Negative Comments Review of systems: See HPI, All other systems negative. Constitutional, no chills no fever, no malaise HEENT: no sore throat no congestion, no ear pain Cardiovascular: No chest pain , no palpitation , no orthopnea Skin: no rashes, no change in skin Respiratory: dyspnea cough no sputum no hemoptysis GI: No nausea no vomiting, no diarrhea, no bloating/constipation Muscle skeletal: No joint pain,, no back pain, no neck pain, Neurologic: No numbness no headache Psych: No stress Heme/endocrine: No bruising Immunology: No lymphadenopathy (ELLA GARCIA) Physical Exam Physical Exam General Appearance: well developed/nourished, no apparent distress, alert Respiratory: normal breath sounds Comments: Well-developed well-nourished patient in no apparent distress. Head/Face: Atraumatic, no maxillary/frontal sinus tenderness, no facial swelling Eyes: PERRL, EOMI, no conjunctival injection Ear:External auditory canal and Tympanic membranes clear, no erythema, no FB. Nose: atraumatic.Normal inspection Throat: Moist mucous membranes.Pharynx normal. No pharyngeal erythema/exudate seen. No stridor/drooling or assymetry. No swelling or edema. Neck: Supple, no lymphadenopathy, FROM Back: FROM Cardiovascular: Regular rate and rhythms no murmurs Respiratory: No respiratory distress. Patient speaking in full complete sentences. Breath sounds clear to auscultation bilaterally: NO W/R/R Extremities: full range of motion Neuro: awake, alert, and oriented to person, place and time. There were no obvious focal neurologic abnormalities. Skin: Warm & dry;No appreciable rash on exposed skin Psych: Mood affect normal, normal memory normal judgment. Core Measures ACS in differential dx? No Severe Sepsis Present: No Septic Shock Present: No All Positive = PERC Ruled Out: Positive: age < 50 years, heart rate < 100 bpm, O2 sat > 94%, no hemoptysis, no hormone use, no prior DVT or PE, no unilateral leg swellin, no surgery/trauma w/ in 4w. (ELLA GARCIA) Progress Differential Diagnosis: asthma, bronchitis, musculoskeletal pain, pulmonary embolism, pneumonia, pneumothorax Plan of Care: Orders Procedure Date/time Status AEROSOL (GEN) 10/11 0836 Complete Breathing treatment ordered patient medicated prednisone 60 mg by mouth Patient reports feeling improved, through case management the patient was provided her prescription of prednisone through the [place] [facility]. Patient is nontoxic-appearing lungs are clear auscultation she is speaking full complete sentences pain resolved with Percocet. perc negative They state they will follow-up with Dr. Gar next week as scheduled (ELLA GARCIA) Initial ED EKG: none (ELLA GARCIA) Departure Departure Time of Disposition: 924 Disposition: HOME OR SELF CARE Condition: Stable Clinical Impression Primary Impression: Asthma exacerbation Referrals: GABRIELLE ALLISON MD (PCP/Family) KARISSA GAR MD Additional Instructions: follow up with dr gar as scheduled. prednisone as directed this was sent to [facility]. continue using your inhalers as prescribed. return with any concerns Departure Forms: Customer Survey General Discharge Information Prescriptions: Current Visit Scripts Prednisone 0 PO DAILY #15 TAB 5 tabs po day 1 4 tabs po day 2 3 tabs po day 3 2 tabs po day 4 1 tab po day 5 [nebulizer machine] #1 use as directed (ELLA GARCIA) PA/CODE ENFORCEMENT OFFICER Co-Sign Statement Statement: ED Attending supervision documentation- [] I saw and evaluated the patient. I have also reviewed all the pertinent lab results and diagnostic results. I agree with the findings and the plan of care as documented in the PA's/CODE ENFORCEMENT OFFICER's documentation. [X] I have reviewed the ED Record and agree with the PA's/CODE ENFORCEMENT OFFICER's documentation. [] Additions or exceptions (if any) to the PAs/CODE ENFORCEMENT OFFICER's note and plan are summarized below: [] (SHARRI BANERJEE,SHILA) Critical Care Note Critical Care Note Critical Care Time: non-applicable (ELLA GARCIA)
[2016-10-11] MEDS ORDERED: PREDNISONE10 M2 PO (09:06)
[2016-10-11 09:10] VITALS: BP 126/58
[2016-10-11] MEDS ORDERED: nebulizer machine (09:26)
--- NOTE | 2016-10-11 10:20 | NUR ---
10/11 CASE MGMT- WAS IN PROCESS OF GETTING INDIGENT MEDS FOR PT- MPRESCRIPTION AT PHARMACY AND PT FILLED OUT FORM AND WAS BROUGHT TO PHARMACY. PT NEVER PICKED UP AFTER D/C. CALLED PT PHONE WHICH ISN'T WORKING WELL PT HUSBANDS PHONE AND MESSAGE LEFT. ALSO SPOKE WITH LENA FROM [employer] REGARDING A NEBULIZER MACHINE- STATES PT WILL NEED TO CALL INSURANCE [facility] [employer] FOR PRICES BUT WILL NEED PRIOR AUTH AND PRESCIPTION FAXED IF PT STILL NEEDED MACHINE. ANOTHER CALL PLACED TO PT PHONE AND MESSAGE LEFT- WAS GOING TO INFORM THAT THEY CAN [facility]KC UP PRESCRIPTION AT PHARMACY WELL WOULD NEED TO CONTACT INSURANCE [facility] FOR CO-PAYS FOR MACHINE. AWAITING RETURN CALL BACK.
[2016-10-13] MEDS ORDERED: CHERATUSSIN AC118 M1 PO (10:27)
== END 2016-10-11 09:29 ==
LOC: ERH 07:44
DX: J45.901 Unspecified asthma with (acute) exacerbation (principal)
CPT/HCPCS: 1263

== ENCOUNTER 2016-10-14 14:11 | Emergency (ER) | payer OTHER ==
[~2016-10-14] VITALS: Ht 152.4 cm; Wt 99.8 kg
[~2016-10-14 14:11] MED LIST changes: +CHERATUSSIN AC118 M1 PO; +nebulizer machine
--- NOTE | 2016-10-14 14:15 | NUR ---
PT TO TRIAGE WITH C/O DIFFICULTY BREATHING AND DRY COUGH xWEEK. PT WAS HERE IN ER YESTERDAY FOR SAME. VSS. AFEBRILE. NO RESP DISTRESS NOTED IN TRIAGE. O2SAT 96% ON RA.
--- NOTE | 2016-10-14 15:52 | ED DYSPNEA/ASTHMA COMPLAINT ---
History of Present Illness General Chief Complaint: Dyspnea (COPD, CHF, Other) Stated Complaint: COUGH W/ DIFFICULTY BREATHING Source: patient, friend Exam Limitations: no limitations Vital Signs & Intake/Output Vital Signs & Intake/Output Vital Signs Date Time Temp Pulse Resp B/P B/P Pulse O2 O2 Flow FiO2 Mean Ox Delivery Rate 10/15 2007 97.0 80 18 118/72 98 Room Air 10/14 1911 97.0 80 18 118/78 94 Room Air 10/14 1743 97.2 74 18 116/83 93 Room Air 10/14 1629 97.0 78 20 110/70 10/14 1615 97 10/14 1610 Room Air 10/14 1415 96.2 85 18 126/89 96 Room Air Allergies Coded Allergies: adhesive tape (Severe, ANAPHYLAXIS 09/14/16) amoxicillin (Severe, ANAPHYLAXIS 09/14/16) ampicillin (Severe, ANAPHYLAXIS 09/14/16) cefaclor (Severe, ANAPHYLAXIS 09/14/16) clavulanic acid (From AUGMENTIN) (Severe, ANAPHYLAXIS 09/14/16) clindamycin (Severe, ANAPHYLAXIS 09/14/16) latex (Severe, ANAPHYLAXIS 09/14/16) tobramycin (Severe, ANAPHYLAXIS 09/14/16) vancomycin (Severe, ANAPHYLAXIS 09/14/16) meloxicam (Intermediate, FACE SWELLING 09/14/16) morphine (Mild, HIVES 09/14/16) Penicillins (ANAPHYLAXIS 09/14/16) propofol (GI UPSET 09/14/16) Triage Note: PT TO TRIAGE WITH C/O DIFFICULTY BREATHING AND DRY COUGH xWEEK. PT WAS HERE IN ER YESTERDAY FOR SAME. VSS. AFEBRILE. NO RESP DISTRESS NOTED IN TRIAGE. O2SAT 96% ON RA. Triage Nurses Notes Reviewed? yes Onset: Gradual Duration: day(s): Timing: recent history Severity: moderate Prior Episodes/Possible Cause: frequent episodes : No Patient currently breastfeeds: No HPI: 31yo female presents to ED c/o dry cough and dyspnea x 5 days. She has been seen and evaluated here in 4 times for this complaint, last seen here yesterday. She was given duoneb treatments as well as a continuous nebulizer after which her symptoms improved. When she went home she felt okay however her symptoms gradually increased following her discharge. She states that the cough medication did not improve her cough at all. She states she has been taking her steroid pack as prescribed. The patient also complains of nausea and headache since today, she states this is chronic for her, reglan usually helps however she has not taken any today. (MAYNOR LEMUS PA-C) Reconcile Medications Albuterol Sulfate (Proair Respiclick) 90 MCG AER.POW.BA 2 PUFF PO Q4 HRS NEEDED PRN RESPIRATORY (Reported) Albuterol Sulfate 2.5 MG/3 ML (0.083 %) VIAL.NEB 1 Vial INH/RADHA Q4P PRN wheezing Codeine Phosphate/Guaifenesi (Cheratussin AC Syrup) 10 MG-100 MG/5 ML LIQUID 10 ML PO Q6 PRN COUGH Diazepam (Valium) 5 MG TABLET 1 TAB PO BID PRN ANXIETY (Reported) Escitalopram Oxalate 20 MG TABLET 1 TAB PO DAILY ANXIETY/DEPRESSION (Reported ) Gabapentin 100 MG CAPSULE 1 CAP PO TID NEUROPATHY (Reported) Hydroxyzine HCl 25 MG TABLET 1 TAB PO TID ANXIETY/DEPRESSION (Reported) Ibuprofen 800 MG TABLET 1 TAB PO BID PAIN (Reported) Methylprednisolone. (Medrol) 4 MG TAB.DS.PK 1 DP PO AD hip pain 6 on day 1 then reduce by one tablet daily until gone Metoclopramide HCl (Reglan) 10 MG TABLET 1 TAB PO 4 TIMES/DAY PRN NAUSEA 30 minutes before meals and bedtime Mometasone Furoate (Nasonex) 50 MCG SPRAY.PUMP 2 SPRAY NASB DAILY RHINOSINUSITIS Oxycodone HCl/Acetaminophen (Oxycodone-Acetaminophen 10-325) 10 MG-325 MG TABLET 1 TAB PO TID PRN PAIN (Reported) Tapentadol HCl (Nucynta) 50 MG TABLET 1 TAB PO BID PAIN (Reported) (SHARRI BANERJEE,SHILA) Past History Travel History Traveled to [place] past 21 day No Medical History Any Pertinent Medical History? 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 No (MAYNOR LEMUS PA-C) Review of Systems Review of Systems Constitutional: Reports: no symptoms. EENTM: Reports: no symptoms. Respiratory: Reports: see HPI. Cardiovascular: Reports: no symptoms. GI: Reports: see HPI. Genitourinary: Reports: no symptoms. Musculoskeletal: Reports: no symptoms. Skin: Reports: no symptoms. Neurological/Psychological: Reports: see HPI. Hematologic/Endocrine: Reports: no symptoms. Immunologic/Allergic: Reports: no symptoms. All Other Systems: Reviewed and Negative (MAYNOR LEMUS PA-C) Physical Exam Physical Exam General Appearance: well developed/nourished, no apparent distress, alert, awake Head: atraumatic, normal appearance Eyes: Bilateral: normal appearance, EOMI. Ears, Nose, Throat: hearing grossly normal Neck: normal inspection, supple Respiratory: no respiratory distress, diminished breath sounds, inspiratory and expiratory wheezes throughout, dry cough upon inspiration Cardiovascular: regular rate/rhythm Neurologic/Psych: awake, alert, oriented x 3 Skin: erythema on left face Core Measures ACS in differential dx? No Severe Sepsis Present: No Septic Shock Present: No (MAYNOR LEMUS PA-C) Progress Differential Diagnosis: asthma, bronchitis, COPD, pulmonary embolism, pneumonia, bronchiolitis, bronchiectasis Plan of Care: Orders Procedure Date/time Status ED Holding Orders 10/15 1903 Active Vital Signs 10/14 190 Active Code Status 10/14 190 Active Patient Data 10/14 190 Active EKG 10/14 1839 Active Intake & Output 10/14 1609 Active COMPREHENSIVE METABOLIC PANEL 10/14 1549 Complete CBC WITHOUT DIFFERENTIAL 10/14 1549 Complete Laboratory Tests 10/14/16 1630: Anion Gap 13, Estimated GFR > 60, BUN/Creatinine Ratio 38.0 H, Glucose 117 H, Calcium 9.2, Total Bilirubin 0.6, AST 15, ALT 26, Alkaline Phosphatase 65, Total Protein 7.4, Albumin 4.4, Globulin 3.0, Albumin/Globulin Ratio 1.5 10/14/16 1605: CBC w Diff NO MAN DIFF REQ, RBC 4.60, MCV 84.4, MCH 28.3, RDW 16.1 H, MPV 6.4 L, Gran % 89.2 H, Lymphocytes % 8.3 L, Monocytes % 2.1, Eosinophils % 0.2, Basophils % 0.2, Absolute Granulocytes 7.0 H, Absolute Lymphocytes 0.7 L, Absolute Monocytes 0.2, Absolute Eosinophils 0, Absolute Basophils 0, PUBS MCHC 33.5 16:49 Patient finished duoneb treatment. States no improvement in cough or dyspnea. Repeat exam shows continued wheezing in bilateral lobes, persistent dry cough with deep respiration. The patient was discussed with Dr. Sabillon. IV solumedrol given. EKG pending. With recent history of persistent cough and dyspnea and frequent visits to ED the patient should be monitored for her continuing symptoms. 18:[address] Shaw, patient will be admitted to general medicine for further respiratory treatments given her persistent dyspnea. 19:[address] Shaw who evaluated patient, her wheezing has improved, her dyspnea has improved following steroid and nebulizer treatment. The patient does not have nebulizer machine at home. Her will go to [facility] now to purchase one. If patient has nebulizer at home she may be discharged with instruction for duonebs at home for her dyspnea. 20:15 Patient's states he will have nebulizer by 10AM tomorrow morning. Patient's condition is stable, she is in no acute distress, her vital signs are stable. She will go home and use nebulizer for further dypnea. Dr. Geurra and Dr. Shaw are in agreement with plan of care. Patient is in agreement with the plan of care. (MAYNOR LEMUS PA-C) Initial ED EKG: sinus rhythm at 63bpm, normal axis Prior EKG: unchanged (MAYNOR LEMUS PA-C) Comments: While waiting for her bed upstairs patient stated that she felt much better and wanted to go home. Patient's states that he will go to [facility] and by nebulizer. He has ampules of albuterol at home. Patient is awake alert and oriented 3. Her lungs are clear to auscultation bilaterally with good air entry. At this point the patient will be discharged home. (SHAWANDA BANERJEE,SHIRA Link) Departure Departure Time of Disposition: 1854 Condition: Stable Referrals: ESTEFANY BANERJEE,GABRIELLE (PCP/Family) Departure Forms: Customer Survey General Discharge Information Admission Note Spoke With: NANCIE SHAW MD (MAYNOR LEMUS PA-C) Departure Clinical Impression Primary Impression: Asthma exacerbation PA/COUNTER SUPERVISOR Co-Sign Statement Statement: ED Attending supervision documentation- [X] I saw and evaluated the patient. I have also reviewed all the pertinent lab results and diagnostic results. I agree with the findings and the plan of care as documented in the PA's/COUNTER SUPERVISOR's documentation. [X] I have reviewed the ED Record and agree with the PA's/COUNTER SUPERVISOR's documentation. [] Additions or exceptions (if any) to the PAs/COUNTER SUPERVISOR's note and plan are summarized below: [] (SHARRI BANERJEE,SHILA) Departure Disposition: HOME OR SELF CARE Additional Instructions: Return if symptoms worsen or for any concerns. (SHAWANDA BANERJEE,SHIRA Link) Critical Care Note Critical Care Note Critical Care Time: non-applicable (MAYNOR LEMUS PA-C)
[2016-10-14 16:18] LABS: ABSOLUTE BASOPHIL COUNT 0 /CUMM (0.0-0.2); ABSOLUTE EOSINOPHIL COUNT 0 /CUMM (0.0-0.7); ABSOLUTE LYMPH COUNT 0.7 /CUMM (1.2-3.4); ABSOLUTE MONOCYTE COUNT 0.2 /CUMM (0.10-0.60); BASOPHIL % 0.2 % (0.0-2.0); EOSINOPHIL % 0.2 % (0-5); HEMATOCRIT 38.9 % (37-47); MEAN CORPUSCULAR HGB 28.3 PG (27.0-31.0); MEAN CORPUSCULAR HGB CONC 33.5 G/DL (33.0-37.0); MEAN CORPUSCULAR VOLUME 84.4 FL (81.0-99.0); MEAN PLATELET VOLUME 6.4 FL (7.4-10.4); PLATELET COUNT 262 /CUMM (130-400); RBC DISTRIBUTION WIDTH 16.1 % (11.5-14.5); WHITE BLOOD CELL COUNT 7.8 /CUMM (4.8-10.8)
[2016-10-14 16:20] LABS: GRANULOCYTE % 89.2 % (42.2-75.2)
--- NOTE | 2016-10-14 16:24 | NUR ---
RECEIVE CALL FROM LAB THAT 2 GOLD TOP SPECIMENS WERE HEMOLIZED. WILL REDRAW.
--- NOTE | 2016-10-14 16:46 | NUR ---
HAVE PASSED ON PATIENT'S REQUEST OF CELIA TO THE ATTENDING PA.
--- NOTE | 2016-10-14 18:13 | NUR ---
PATIENT REQUEST REGLAN FOR NAUSEA. PROVIDER IS AWARE.
--- NOTE | 2016-10-14 19:37 | NUR ---
PT ASSIGNED TO ROOM # [id number]
--- NOTE | 2016-10-14 19:42 | NUR ---
NO NURSE AVAILABLE TO TAKE REPORT AT THIS TIME. WILL CALL FLOOR BACK IN 10MIN
[2016-10-14 20:08] VITALS: BP 118/72
--- NOTE | 2016-10-14 20:11 | NUR ---
ADMISSION REQUEST CARLINE PER
== END 2016-10-14 18:55 ==
LOC: ERH 14:11 → ERHI 19:04 → ENRESERV 19:36 → ENTRNSPT 19:58 → CANRESERV 20:09 → ENRESERV 20:09 → CMPTRNSPT 20:19 → ENRESERV 20:21 → ERHI 20:26
PROVIDERS: Physician Assistant
DX: J45.901 Unspecified asthma with (acute) exacerbation (principal)
CPT/HCPCS: ERO; 93005; 93010; J2930

== ENCOUNTER 2017-05-04 01:25 | Emergency (ER) | payer OTHER ==
[~2017-05-04] VITALS: Ht 152.4 cm; Wt 99.8 kg
[~2017-05-04 01:25] MED LIST changes: +BACLOFEN10 M1 PO; +CIPROFLOXACIN250 M1 PO; +CYCLOBENZAPRINE5 M2 PO; +FLUTICASONE PRO16 GM NASB; +IPRAT-ALBUT 0.5-3 ML PO; +PREDNISONE50 M1 PO
--- NOTE | 2017-05-04 02:45 | CT SCAN REPORT ---
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 Recurrent headache. Nausea. COMPARISON: 03/25/2016 TECHNIQUE: Contiguous axial imaging was performed from the skull base to vertex without intravenous contrast. DLP: 701 mGy-cm. FINDINGS: There is a right frontal approach ventriculoperitoneal shunt. This appears to terminate in the anterior parenchyma adjacent to the left lateral ventricle. This is unchanged. This does not definitively traverse the ventricular system. Agenesis of the corpus callosum. Prominent ventricular dilatation is similar to prior, out of proportion to sulcal prominence. Persistent sulcal effacement. There is no evidence of acute intracranial hemorrhage or territorial infarction. No midline shift. Gee to white matter differentiation is well preserved. No extra-axial fluid collections are identified. There is no abnormal attenuation within the brain parenchyma. The osseous structures and soft tissues are normal. The mastoid air cells and visualized portions of the paranasal sinuses are well aerated. IMPRESSION: No significant change from prior. Right frontal ventriculoperitoneal shunt continues to terminate in the parenchyma adjacent to the left lateral ventricle without definitively entering the ventricular system. Persistent hydrocephalus.
--- NOTE | 2017-05-04 02:49 | ED HEADACHE COMPLAINT ---
History of Present Illness General Chief Complaint: Headache Stated Complaint: SALAZAR FOR OVER A WEEK NOW PER PT Source: patient, family, old records Exam Limitations: no limitations Vital Signs & Intake/Output Vital Signs & Intake/Output Vital Signs Date Time Temp Pulse Resp B/P B/P Pulse O2 O2 Flow FiO2 Mean Ox Delivery Rate 05/04 0151 Room Air 05/04 0142 99.1 83 20 97 Room Air Allergies Coded Allergies: adhesive tape (Severe, ANAPHYLAXIS 02/11/17) amoxicillin (Severe, ANAPHYLAXIS 02/11/17) ampicillin (Severe, ANAPHYLAXIS 02/11/17) cefaclor (Severe, ANAPHYLAXIS 02/11/17) clavulanic acid (From AUGMENTIN) (Severe, ANAPHYLAXIS 02/11/17) clindamycin (Severe, ANAPHYLAXIS 02/11/17) latex (Severe, ANAPHYLAXIS 02/11/17) tobramycin (Severe, ANAPHYLAXIS 02/11/17) vancomycin (Severe, ANAPHYLAXIS 02/11/17) meloxicam (Intermediate, FACE SWELLING 02/11/17) morphine (Mild, HIVES 02/11/17) Penicillins (ANAPHYLAXIS 02/11/17) propofol (GI UPSET 02/11/17) Reconcile Medications Albuterol Sulfate (Proair Respiclick) 90 MCG AER.POW.BA 2 PUFF PO Q4 HRS NEEDED PRN RESPIRATORY (Reported) Albuterol Sulfate 2.5 MG/3 ML (0.083 %) VIAL.NEB 1 Vial INH/RADHA Q4P PRN wheezing Ciprofloxacin HCl 250 MG TABLET 1 TAB PO DAILY PROPHYLAXIS (Reported) Cyclobenzaprine HCl 5 MG TABLET 1 TAB PO TIDPRN PRN pain Escitalopram Oxalate 20 MG TABLET 1 TAB PO DAILY ANXIETY/DEPRESSION (Reported ) Fluticasone Propionate 50 MCG/ACTUATION SPRAY.SUSP 2 SPRAY NASB DAILY ALLERGIES (Reported) Hydroxyzine Hydrochloride (Atarax) 25 MG TABLET 1 TAB PO TID ANXIETY/ DEPRESSION (Reported) Ibuprofen 800 MG TABLET 1 TAB PO BID PAIN (Reported) Ipratropium/Albuterol Sulfate (Iprat-Albut 0.5-3(2.5) MG/3 Ml) 0.5 MG-3 MG (2.5 MG BASE)/3 ML AMPUL.NEB 1 INH PO 4 TIMES/DAY PRN WHEEZE Oxycodone HCl/Acetaminophen (Oxycodone-Acetaminophen 10-325) 10 MG-325 MG TABLET 1 TAB PO TID PRN PAIN (Reported) Triage Note: PT REPORTS HAVING A HEADACHE FOR A WEEK. PT REPORTS HAVING A BACKROOM ASSOCIATE SHUNT THAT IS DISCONNECTED. PT IS HERE TO MAKE SURE NO HYDROCEPHALIS IS COMING BACK,PT REPORTS FEELING NAUSEA. PT STATES SHE IS GETTING OVER "A NASTY COLD". Triage Nurses Notes Reviewed? yes Onset: Last week Duration: day(s):, constant, continues in ED Timing: recent history Quality/Severity: moderate, throbbing Head Injury Location: global No Modifying Factors: none Associated Symptoms: nausea/vomiting LMP (ages 10-50): unknown : No Patient currently breastfeeds: No HPI: One week prior to admission patient complains of upper respiratory infection with persistent headache accompanied with nausea. She is concerned that her BACKROOM ASSOCIATE shunt is nonfunctional and has caused worsening hydrocephalus. She was fever chills vomiting diarrhea abdominal pain chest pain shortness of breath dysuria rash bleeding change in motor sensory function change in bowel habit. Past History Travel History Traveled to [place] past 21 day No Medical History Any Pertinent Medical History? 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 No Review of Systems Review of Systems Constitutional: Reports: no symptoms. Eyes: Reports: no symptoms. Ears, Nose, Throat, Mouth: Reports: no symptoms. Respiratory: Reports: no symptoms. Cardiovascular: Reports: no symptoms. Gastrointestinal/Abdominal: Reports: see HPI, nausea. Genitourinary: Reports: no symptoms. Musculoskeletal: Reports: no symptoms. Skin: Reports: no symptoms. Neurological/Psychological: Reports: see HPI, headache. Hematologic/Endocrine: Reports: no symptoms. Endocrine: Reports: no symptoms. Immunologic/Allergic: Reports: no symptoms. All Other Systems: Reviewed and Negative Physical Exam Physical Exam General Appearance: well developed/nourished, alert, awake, anxious, mild distress, obese Head: atraumatic, normal appearance Eyes: Bilateral: normal appearance, PERRL, EOMI. Ears, Nose, Throat: normal pharynx, normal ENT inspection, hearing grossly normal Neck: normal inspection, supple, full range of motion, trachea midline, no midline tenderness Respiratory: normal breath sounds, chest non-tender, no respiratory distress, quiet respiration, lungs clear Cardiovascular: regular rate/rhythm, normal peripheral pulses, norml femoral pulses equa Gastrointestinal: normal bowel sounds, soft, non-tender, no organomegaly Back: normal inspection Extremities: normal capillary refill, bilat aka Psychiatric: awake, alert, oriented x 3 Cranial Nerves: normal hearing, normal speech, PERRL Coordination/Gait: normal finger to nose Motor/Sensory: no motor/sensory deficits Reflexes: 2+: bicep (R), bicep (L). Skin: intact, normal color, warm/dry Lymphatic: no anterior cervical gold Core Measures Sepsis Present: No Sepsis Focused Exam Completed? No Progress Differential Diagnosis: migraine SALAZAR, tension SALAZAR, viral cephalgia Plan of Care: Current Medications Sig/Jorge A Start time Last Medication Dose Stop Time Status Admin Acetaminophen/ 1 TAB ONCE ONE 05/04 329 UNVr Butalbital/Caffeine 05/04 330 (Fioricet) Diagnostic Imaging: Viewed by Me: CT Scan. Discussed w/RAD: CT Scan. Radiology Impression: No significant change from prior. Right frontal ventriculoperitoneal shunt continues to terminate in the parenchyma adjacent to the left lateral ventricle without definitively entering the ventricular system. Persistent hydrocephalus. Departure Departure Time of Disposition: 324 Disposition: HOME OR SELF CARE Condition: Stable Clinical Impression Primary Impression: Headache Secondary Impressions: Chronic brain-hydrocephalus syndrome Referrals: Vinita Sanchez MD (PCP/Family) Departure Forms: Customer Survey General Discharge Information
[2017-05-04 03:26] VITALS: BP 112/67
== END 2017-05-04 03:30 ==
LOC: ERH 01:25
DX: R51 Headache (principal); G91.8 Other hydrocephalus

== ENCOUNTER 2017-08-12 11:10 | Emergency (ER) | payer OTHER ==
[~2017-08-12 11:10] MED LIST changes: +IBUPROFEN600 M1 PO; +MACROBID 100 M100 MG PO
--- NOTE | 2017-08-12 12:53 | ED GENERAL ADULT ---
History of Present Illness General Chief Complaint: General Adult Stated Complaint: PAIN ALL OVER Source: patient Exam Limitations: no limitations Vital Signs & Intake/Output Vital Signs & Intake/Output Vital Signs Date Time Temp Pulse Resp B/P B/P Pulse O2 O2 Flow FiO2 Mean Ox Delivery Rate 08/12 1312 98.3 79 16 124/78 99 Room Air 08/12 1126 98.8 84 18 128/85 97 Room Air Allergies Coded Allergies: adhesive tape (Severe, ANAPHYLAXIS 02/11/17) amoxicillin (Severe, ANAPHYLAXIS 02/11/17) ampicillin (Severe, ANAPHYLAXIS 02/11/17) cefaclor (Severe, ANAPHYLAXIS 02/11/17) clavulanic acid (From AUGMENTIN) (Severe, ANAPHYLAXIS 02/11/17) clindamycin (Severe, ANAPHYLAXIS 02/11/17) latex (Severe, ANAPHYLAXIS 02/11/17) tobramycin (Severe, ANAPHYLAXIS 02/11/17) vancomycin (Severe, ANAPHYLAXIS 02/11/17) meloxicam (Intermediate, FACE SWELLING 02/11/17) morphine (Mild, HIVES 02/11/17) Penicillins (ANAPHYLAXIS 02/11/17) propofol (GI UPSET 02/11/17) Reconcile Medications Albuterol Sulfate (Proair Respiclick) 90 MCG AER.POW.BA 2 PUFF PO Q4 HRS NEEDED PRN RESPIRATORY (Reported) Albuterol Sulfate 2.5 MG/3 ML (0.083 %) VIAL.NEB 1 Vial INH/RADHA Q4P PRN wheezing Ciprofloxacin HCl (Cipro) 500 MG TABLET 1 TAB PO BID URINE INFECTION Diazepam 5 MG TABLET 1 TAB PO BID PRN MUSCLE SPASMS/SLEEP (Reported) Escitalopram Oxalate 20 MG TABLET 1 TAB PO DAILY ANXIETY/DEPRESSION (Reported ) Fluticasone Propionate 50 MCG/ACTUATION SPRAY.SUSP 2 SPRAY NASB DAILY ALLERGIES (Reported) Ibuprofen 800 MG TABLET 1 TAB PO BID PAIN (Reported) Ipratropium/Albuterol Sulfate (Iprat-Albut 0.5-3(2.5) MG/3 Ml) 0.5 MG-3 MG (2.5 MG BASE)/3 ML AMPUL.NEB 1 INH PO 4 TIMES/DAY PRN WHEEZE Oxycodone HCl/Acetaminophen (Oxycodone-Acetaminophen 10-325) 10 MG-325 MG TABLET 1 TAB PO Q4-6H PRN PAIN (Reported) Triage Note: 31F REPORTS NEW PAIN FROM RIB AREA AND ARMS/BACK AND GENERALIZED WEAKNESS OF UPPER BODY. CONCERNED IT COULD BE A REACTION TO TRAMADOL THAT SHE STARTED A MONTH AGO. PAIN BEGAIN 3 DAYS AGO. +N/-V Triage Nurses Notes Reviewed? yes Onset: Gradual Duration: day(s): (2-3) Timing: recent history Injury Environment: home Severity: moderate Severity Numbers: 7 No Modifying Factors: none : No Patient currently breastfeeds: No HPI: Patient is a 31-year-old female with history of spina bifida, chronic pain in pain management presenting to the emergency department with chief complaint of diffuse body pain after going on for the past 2-3 days. Patient reports that symptoms started after she started any pain medication, tramadol. She stopped taking it when they go but still expecting symptoms. Patient denies any nausea. According to family she's been eating pizza and ice cream without any difficulty. No change in urinary habits, still straight cathing, clear urine. Denies any increasing low back pain. No fevers or chills. (Teresa Cox) Past History Travel History Traveled to [place] past 21 day No Medical History Any Pertinent Medical History? 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 EENT: NONE Cardiovascular: CARDIAC CATH 07/12/16 Respiratory: asthma, reactive airway disease Gastrointestinal: NONE Hepatic: cholelithiasis Renal: nephrolithiasis, SELF CATHETERIZATION neurogenic bladder Musculoskeletal: SPINA BIFIDA BACK PAIN COSTOCHONDRITIS Psychiatric: NONE Endocrine: NONE Blood Disorders: NONE Cancer(s): NONE RESOURCE ECONOMIST/Reproductive: NONE Other Medical Hx: SURVEILLANCE INSPECTOR shunt History of MRSA: No History of VRE: No History of CDIFF: No Surgical History Surgical History: none Psychosocial History Who do you live with Family What is your primary language Tunisian Tobacco Use: Never used Family History Family History, If Any: FATHER FH: lung cancer Hx Contributory? No (Teresa Cox) Review of Systems Review of Systems Constitutional: Reports: no symptoms. Comments Review of systems: See HPI, All other systems negative. Constitutional, no chills fever or weight loss HEENT: No visual changes no sore throat no congestion Cardiovascular: No chest pain ,palpitation , orthopnea or ankle swelling Skin, no jaundice no rashes Respiratory: No dyspnea cough sputum or hemoptysis GI: No nausea no vomiting : No dysuria No hematuria Muscle skeletal: Positive chronic neck and back pain. No new pain. Neurologic: No numbness no confusion Psych: No stress anxiety or depression,. Heme/endocrine: No bruising no bleeding no polyuria or polydipsia Immunology: No splenectomy or history of AIDS (Teresa Cox) Physical Exam Physical Exam General Appearance: well developed/nourished, no apparent distress, alert, awake , comfortable Comments: Well-developed well-nourished person in no acute distress HEENT: Pupils equally round and reactive to light and accommodation. Nose is atraumatic. Pharynx normal. No swelling or edema. Very poor dentition. Neck: Supple, no lymphadenopathy, normal range of motion without pain or tenderness Back: Nontender, no CVA tenderness. Full range of motion Cardiovascular: Regular rate and rhythms Respiratory: Chest nontender. No respiratory distress.breath sounds clear to auscultation bilaterally Abdomen: Soft, nontender nondistended, no appreciable organomegaly. Normal bowel sounds. No ascites, no rebound or guarding. Neuro: Alert oriented x3 Skin: No appreciable rash on exposed skin, skin is warm and dry. Psych: Mood and affect is normal, memory and judgment is normal. Core Measures ACS in differential dx? No CVA/TIA Diagnosis: No Sepsis Present: No Sepsis Focused Exam Completed? No (Teresa Cox) Progress Differential Diagnoses I considered the following diagnoses in my evaluation of the patient: Exacerbation of chronic pain, medication reaction, viral syndrome Plan of Care: Patient reports diffuse pain after using tramadol. Reports that this medication is new. No nausea or vomiting. Still eating and drinking well. No fevers or chills. No sick contacts or recent travel. Likely exacerbation of chronic pain. Patient nontoxic. She is given dose of Toradol IM here with mild relief. Initial ED EKG: none (Teresa Cox) Departure Departure Time of Disposition: 1303 Disposition: HOME OR SELF CARE Condition: Stable Clinical Impression Primary Impression: Medication reaction Qualifiers: Encounter type: initial encounter Qualified Code: T88.7XXA - Unspecified adverse effect of drug or medicament, initial encounter Secondary Impressions: Chronic pain Qualifiers: Chronic pain type: other chronic pain Qualified Code: G89.29 - Other chronic pain Referrals: Vinita Sacnhez MD (PCP/Family) Additional Instructions: Follow-up with your primary care physician as scheduled this week. Stop taking tramadol. Increase fluids as this will promote hydration. Return for worsening symptoms or concerns. Continue other previously prescribed pain medication and muscle relaxers. Departure Forms: Customer Survey General Discharge Information (Teresa Cox) PA/COIL INSPECTOR Co-Sign Statement Statement: ED Attending supervision documentation- [] I saw and evaluated the patient. I have also reviewed all the pertinent lab results and diagnostic results. I agree with the findings and the plan of care as documented in the PA's/COIL INSPECTOR's documentation. [X] I have reviewed the ED Record and agree with the PA's/COIL INSPECTOR's documentation. [] Additions or exceptions (if any) to the PAs/COIL INSPECTOR's note and plan are summarized below: [] (Charlie BANERJEE,Mika Link) Critical Care Note Critical Care Note Critical Care Time: non-applicable (Teresa Cox)
[2017-08-12 13:12] VITALS: BP 124/78
== END 2017-08-12 13:13 ==
LOC: ERH 11:10
DX: T40.4X1A Poisoning by other synthetic narcotics, accidental (unintentional), initial encounter (principal); R52 Pain, unspecified
CPT/HCPCS: 96372; J1885

== ENCOUNTER → 2017-08-28 | Day surgery (SDC) | payer OTHER ==
[~2017-08-28] VITALS: Ht 152.4 cm; Wt 99.8 kg
--- NOTE | 2017-08-28 09:49 | Operative Report ---
Operative/Inv Procedure Report Surgery Date: 08/28/17 Name of Procedure: right UVJ ESWL:cystoscopy Pre-Operative Diagnosis: right UVJ stone 5mm: hematuria Post-Operative Diagnosis: same Estimated Blood Loss: scant Surgeon/Materials Assistant: Brennan Webster MD Anesthesia: moderate sedation Complications: none Operative/Procedure Note Note: The patient was taken to the operating room and placed on the ESWL table in supine position. With the patient awake, timeout was performed in order to confirm the patient's identity, laterality, procedure, anesthesia, and other pertinent perioperative information. The patient's left flank was positioned over the ESWL table cut-out, overlying the dome of the shockwave generator. C- arm fluroscopy, as well as renal US was used to locate the stone, and evaluate the left kidney. The stone was visible on fluroloscopy at the level of the proximal ureter alongside the stent. Renal US confimred resolution of hydronephrosis with and additional stone seen in the kidney. The left renal stone was approximate 6 mm in size, and it's position was optimized with fluoroscopy at AP and Oblique views. After adequate anesthesia and antibiotics, the left renal E.S.W.L. was initiated at low power levels x200 shocks. After noting the patient's tolerance to the shockwaves, the shockwave power level was quickly maximumized. Toward the end of the procedure, the composition of the stone had changed significantly indicating the pulverization of the ureter stone. A total of 2500 shockwaves were delivered to the stone in order to achieve complete lithotrypsy. The patient was then frog legged, draped and prepped in the usual surgical fashion. A 22 Samoan cystoscope sheath with a 30 angle lens was inserted into the urethra and into the bladder without difficulty. Upon entering the bladder the bladder was noted to be free of and tumor, and free of stone, with both orifices in orthotopic position. The patient tolerated both procedures well, was awakened, and taken to recovery in satisfactory condition via stretcher. The pt. will eventually be dischared to home with pain meds, diet orders, and intructions to catch fragments with straining the urine. The patient is to have follow-up renal ultrasound and KUB in 2 weeks, prior to follow-up visit in my office. Findings: normal bladder Discharge Disposition: Same Day Admissions CC: Brennan Webster MD
== END ==
LOC: STS 02:19
DX: N20.2 Calculus of kidney with calculus of ureter (principal); R31.9 Hematuria, unspecified; G91.9 Hydrocephalus, unspecified; R32 Unspecified urinary incontinence
CPT/HCPCS: 36415; J0744; J2250

== ENCOUNTER 2017-10-28 09:38 | Emergency (ER) | payer OTHER ==
[~2017-10-28] VITALS: Ht 152.4 cm; Wt 99.8 kg
[2017-10-28 09:41] VITALS: BP 121/85
--- NOTE | 2017-10-28 09:54 | ED SKIN/ALLERGY COMPLAINT ---
History of Present Illness General Chief Complaint: Skin Rash/ Abcess Stated Complaint: ABCESS Source: patient, family, old records Exam Limitations: no limitations Vital Signs & Intake/Output Vital Signs & Intake/Output Vital Signs Date Time Temp Pulse Resp B/P B/P Pulse O2 O2 Flow FiO2 Mean Ox Delivery Rate 10/28 1011 97.7 10/28 0941 97.7 94 18 121/85 97 Room Air Room Air Allergies Coded Allergies: adhesive tape (Severe, ANAPHYLAXIS 02/11/17) amoxicillin (Severe, ANAPHYLAXIS 02/11/17) ampicillin (Severe, ANAPHYLAXIS 02/11/17) cefaclor (Severe, ANAPHYLAXIS 02/11/17) clavulanic acid (From AUGMENTIN) (Severe, ANAPHYLAXIS 02/11/17) clindamycin (Severe, ANAPHYLAXIS 02/11/17) latex (Severe, ANAPHYLAXIS 02/11/17) tobramycin (Severe, ANAPHYLAXIS 02/11/17) vancomycin (Severe, ANAPHYLAXIS 02/11/17) meloxicam (Intermediate, FACE SWELLING 02/11/17) morphine (Mild, HIVES 02/11/17) Penicillins (ANAPHYLAXIS 02/11/17) propofol (GI UPSET 02/11/17) Reconcile Medications Albuterol Sulfate (Proair Respiclick) 90 MCG AER.POW.BA 2 PUFF PO Q4 HRS NEEDED PRN RESPIRATORY (Reported) Albuterol Sulfate 2.5 MG/3 ML (0.083 %) VIAL.NEB 1 Vial INH/RADHA Q4P PRN wheezing Ciprofloxacin HCl (Cipro) 500 MG TABLET 1 TAB PO BID URINE INFECTION Diazepam 5 MG TABLET 1 TAB PO BID PRN MUSCLE SPASMS/SLEEP (Reported) Escitalopram Oxalate 20 MG TABLET 1 TAB PO DAILY ANXIETY/DEPRESSION (Reported ) Fluticasone Propionate 50 MCG/ACTUATION SPRAY.SUSP 2 SPRAY NASB DAILY ALLERGIES (Reported) Ibuprofen 800 MG TABLET 1 TAB PO BID PAIN (Reported) Ibuprofen 600 MG TABLET 1 TAB PO Q6P PRN pain with food Ipratropium/Albuterol Sulfate (Iprat-Albut 0.5-3(2.5) MG/3 Ml) 0.5 MG-3 MG (2.5 MG BASE)/3 ML AMPUL.NEB 1 INH PO 4 TIMES/DAY PRN WHEEZE Oxycodone HCl/Acetaminophen (Oxycodone-Acetaminophen 10-325) 10 MG-325 MG TABLET 1 TAB PO Q4-6H PRN PAIN (Reported) Sulfamethoxazole/Trimethoprim (Bactrim Ds Tablet) 800 MG-160 MG TABLET 1 TAB PO BID abscess Triage Note: triage: 32 Y/O FEMALE PRESENTS C/O AXILLARY ABCESS SINCE SUNDAY. HISTORY OF SAME. Triage Nurses Notes Reviewed? yes Onset: 4 days Duration: day(s):, better, constant Timing: recent history Severity: moderate, severe Location: torso (left axilla) No Modifying Factors: none LMP (ages 10-50): unknown : No Patient currently breastfeeds: No HPI: 4 days prior to admission patient complains of left axillary abscess. The evening prior to admission patient reports the abscess spontaneously ruptured with drainage of purulent material. She presents with continued pain. She denies fever chills nausea vomiting diarrhea abdominal pain chest pain shortness breath headache dysuria bleeding. Past History Travel History Traveled to [place] past 21 day No Medical History Any Pertinent Medical History? 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 No Review of Systems Review of Systems Constitutional: Reports: no symptoms. EENTM: Reports: no symptoms. Respiratory: Reports: no symptoms. Cardiovascular: Reports: no symptoms. GI: Reports: no symptoms. Genitourinary: Reports: no symptoms. Musculoskeletal: Reports: no symptoms. Skin: Reports: see HPI. Neurological/Psychological: Reports: no symptoms. Hematologic/Endocrine: Reports: no symptoms. Immunologic/Allergic: Reports: no symptoms. All Other Systems: Reviewed and Negative Physical Exam Physical Exam General Appearance: well developed/nourished, mild distress Head: atraumatic, normal appearance Eyes: Bilateral: normal appearance, PERRL, EOMI. Ears, Nose, Throat: normal pharynx, normal ENT inspection, hearing grossly normal Neck: normal inspection, supple, full range of motion Respiratory: normal breath sounds, chest non-tender, no respiratory distress, quiet respiration, lungs clear Cardiovascular: regular rate/rhythm, normal peripheral pulses, norml femoral pulses equa Peripheral Pulses: 4+ carotid (R), 4+ carotid (L) Gastrointestinal: normal bowel sounds, soft, non-tender, no organomegaly Back: normal inspection, normal range of motion Extremities: normal inspection, normal range of motion Neurologic/Psych: no motor/sensory deficits, awake, alert, oriented x 3, normal mood/affect, 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 Skin: intact, normal color Skin Problem Location: torso (Left axilla) Skin Problem Character: abcess, erythema Lymphatic: no anterior cervical gold Progress Differential Diagnosis: abscess/cellulitis, allergic reaction, contact dermatitis Plan of Care: Current Medications Sig/Jorge A Start time Last Medication Dose Stop Time Status Admin Tramadol HCl 50 MG ONCE ONE 10/28 1000 CAN (Ultram) 10/28 1001 Departure Departure Time of Disposition: 954 Disposition: HOME OR SELF CARE Condition: Stable Clinical Impression Primary Impression: Axillary abscess Referrals: Vinita Sanchez MD (PCP/Family) Harrison BANERJEE,Tristian Nicolas Follow up on Sunday as scheduled. Departure Forms: Customer Survey General Discharge Information Prescriptions: Current Visit Scripts Sulfamethoxazole/Trimethoprim (Bactrim Ds Tablet) 1 TAB PO BID #20 TAB Ibuprofen 1 TAB PO Q6P PRN pain #50 TAB with food
[2017-10-28] MEDS ORDERED: BACTRIM DS TAB1 EACH PO (09:58)
[2017-10-28] MEDS ORDERED: ULTRAM50 M1 PO (09:58)
[2017-10-28] MEDS ORDERED: IBUPROFEN600 M1 PO (10:09)
== END 2017-10-28 10:12 ==
LOC: ERH 09:38
DX: L02.412 Cutaneous abscess of left axilla (principal)

== ENCOUNTER 2017-11-07 17:00 | Emergency (ER) | payer OTHER ==
[~2017-11-07] VITALS: Ht 152.4 cm; Wt 99.8 kg
[~2017-11-07 17:00] MED LIST changes: +ULTRAM50 M1 PO
[2017-11-07] MEDS ORDERED: CIPRO250 M1 PO (17:34)
--- NOTE | 2017-11-07 17:51 | ED UPPER/LOWER EXTREMITY COMPL ---
History of Present Illness General Chief Complaint: Hip Injury Stated Complaint: RT HIP PAIN Source: patient, family, old records Exam Limitations: no limitations Vital Signs & Intake/Output Vital Signs & Intake/Output Vital Signs Date Time Temp Pulse Resp B/P B/P Pulse O2 O2 Flow FiO2 Mean Ox Delivery Rate 11/07 1855 98.5 62 18 154/67 99 Room Air 11/07 1706 94 Room Air 11/07 1705 98.6 77 18 139/72 94 Room Air Allergies Coded Allergies: adhesive tape (Severe, ANAPHYLAXIS 02/11/17) amoxicillin (Severe, ANAPHYLAXIS 02/11/17) ampicillin (Severe, ANAPHYLAXIS 02/11/17) cefaclor (Severe, ANAPHYLAXIS 02/11/17) clavulanic acid (From AUGMENTIN) (Severe, ANAPHYLAXIS 02/11/17) clindamycin (Severe, ANAPHYLAXIS 02/11/17) latex (Severe, ANAPHYLAXIS 02/11/17) tobramycin (Severe, ANAPHYLAXIS 02/11/17) vancomycin (Severe, ANAPHYLAXIS 02/11/17) meloxicam (Intermediate, FACE SWELLING 02/11/17) morphine (Mild, HIVES 02/11/17) Penicillins (ANAPHYLAXIS 02/11/17) propofol (GI UPSET 02/11/17) sulfamethoxazole (From BACTRIM) ("BAD HEADACHES" PER PT 11/07/17) tramadol ("MUSCLES TIGHTEN" PER PT 11/07/17) trimethoprim (From BACTRIM) ("BAD HEADACHES" PER PT 11/07/17) Reconcile Medications Albuterol Sulfate (Proair Respiclick) 90 MCG AER.POW.BA 2 PUFF PO Q4 HRS NEEDED PRN RESPIRATORY (Reported) Albuterol Sulfate 2.5 MG/3 ML (0.083 %) VIAL.NEB 1 Vial INH/RADHA Q4P PRN wheezing Ciprofloxacin HCl (Cipro) 250 MG TABLET 1 TAB PO DAILY PROPHYLAXIS (Reported) Cyclobenzaprine HCl 10 MG TABLET 1 TAB PO TID PRN pain Diazepam 5 MG TABLET 1 TAB PO BID PRN MUSCLE SPASMS/SLEEP (Reported) Escitalopram Oxalate 20 MG TABLET 1 TAB PO DAILY ANXIETY/DEPRESSION (Reported ) Fluticasone Propionate 50 MCG/ACTUATION SPRAY.SUSP 2 SPRAY NASB DAILY ALLERGIES (Reported) Ibuprofen 600 MG TABLET 1 TAB PO Q6P PRN pain with food Ibuprofen 800 MG TABLET 1 TAB PO TID PRN pain Ipratropium/Albuterol Sulfate (Iprat-Albut 0.5-3(2.5) MG/3 Ml) 0.5 MG-3 MG (2.5 MG BASE)/3 ML AMPUL.NEB 1 INH PO 4 TIMES/DAY PRN WHEEZE Oxycodone HCl/Acetaminophen (Oxycodone-Acetaminophen 10-325) 10 MG-325 MG TABLET 1 TAB PO Q4-6H PRN PAIN (Reported) Triage Note: BIBA FROM HOME C/O RT HIP PAIN SINCE 1429 WHEN PT WAS SLIDING FROM HER WHEELCHAIR INTO HER CAR. PT HAS AN EXTENSIVE HX. PT HAS CHRONIC HIP ISSUES. DENIES INJURY. PT IS A&0X3, AWAITING PROVIDER EVAL. Triage Nurses Notes Reviewed? yes Onset: Gradual Duration: hour(s): Timing: recent history Severity: severe Severity Numbers: 10 Pain/Injury Location: Right: Hip. : No Patient currently breastfeeds: No HPI: 32yo female with hx of spina bifida and congenitcal bilateral hip dysplasia presents to ED complaining of right hip pain beginning earlier today. Patient is wheel chair bound, she states that she was transferring from car to wheelchair when hip pain began. There was no fall or significant trauma. Patient is on percocet from pain management which has not helped her current pain. Patient has chronic pain in hips relating to her hip dysplasia. (Micheline WALKER,Jacqueline Zambrano) Past History Travel History Traveled to [place] past 21 day No Medical History Any Pertinent Medical History? 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 No (Jacqueline Mi) Review of Systems Review of Systems Constitutional: Reports: no symptoms. EENTM: Reports: no symptoms. Respiratory: Reports: no symptoms. Cardiovascular: Reports: no symptoms. Gastrointestinal/Abdominal: Reports: no symptoms. Genitourinary: Reports: no symptoms. Musculoskeletal: Reports: see HPI. Skin: Reports: no symptoms. Neurological/Psychological: Reports: no symptoms. Hematologic/Endocrine: Reports: no symptoms. Immunological: Reports: no symptoms. All Other Systems: Reviewed and Negative (Micheline WALKER,Jacqueline Zambrano) Physical Exam Physical Exam General Appearance: well developed/nourished, no apparent distress, alert, awake Head: atraumatic, normal appearance Eyes: Bilateral: normal appearance. Ears, Nose, Throat: hearing grossly normal Neck: normal inspection, supple, full range of motion Cardiovascular/Respiratory: no respiratory distress Back: normal inspection, normal range of motion Hip Left: normal inspection Hip Right: normal inspection, tenderness to right hip, no skin changes or gross deformity Skin: intact, normal color, warm/dry (Jacqueline Mi) Progress Differential Diagnosis: cellulitis, DVT, fracture, sprain, tendon injury Plan of Care: Orders Procedure Date/time Status XRY-AP PELVIS 11/07 1802 Active XRY-HIP 2-3 VIEWS, RIGHT 11/07 1802 Active Current Medications Sig/Jorge A Start time Last Medication Dose Stop Time Status Admin Ketorolac 30 MG ONCE ONE 11/07 1814 UNVr Tromethamine 11/08 1815 (Toradol) Xrays are WNL. No acute findings. Patient has chronic pain and is in pain management. Patient is seen here in the emergency department frequently with pain. She currently has a care plan stating that narcotic pain reliever should be avoided unless there are findings to warrant narcotic administration. Patient to continue her Percocet and begin meloxicam for pain. Patient agrees with plan of care. Diagnostic Imaging: Viewed by Me: Radiology Read. Discussed w/RAD: Radiology Read. Radiology Impression: PATIENT: HUGO NIELSEN PRESENT AGE: 32 PATIENT ACCOUNT NO: [id number] : 86 LOCATION: [facility] ORDERING PHYSICIAN: Jacqueline WALKER SERVICE DATE: 11/07/17-1802 EXAM TYPE: RAD - XRY-AP PELVIS; XRY-HIP 2-3 VIEWS, RIGHT EXAMINATIONS: PELVIS 1 VIEW AND RIGHT HIP 2 VIEWS CLINICAL INFORMATION: Right hip pain. COMPARISON: 2017. TECHNIQUE: A supine view of the pelvis is provided. AP neutral and frog- leg lateral views of the right hip are provided. FINDINGS: No acute fractures are present. There is right hip dysplasia demonstrated with superior subluxation /dislocation to the right hip. There is bilateral coxa valga. Lumbosacral dysraphism is identified. There is stable posterior spinal fusion hardware with a break again identified within the right sacral portion. IMPRESSION: Stable appearance to the pelvis with right hip dysplasia and superior subluxation/ dislocation. No acute injury identified. DICTATED BY: German Whitlock MD DATE/ TIME DICTATED:11/07/171835 LAUNDRY OPERATOR FINISHING:HUSSEIN DATE/TIME TRANSCRIBED: 11/07/171835 CONFIDENTIAL, DO NOT COPY WITHOUT APPROPRIATE AUTHORIZATION. < Electronically signed in Other Vendor System> SIGNED BY: German Whitlock MD 11/07/17 [id number] (Micheline WALKER,Jacqueline Zambrano) Departure Departure Disposition: HOME OR SELF CARE Condition: Stable Clinical Impression Primary Impression: Right hip pain Secondary Impressions: Hip dysplasia Referrals: Vinita Sanchez MD (PCP/Family) Additional Instructions: Continue your pain medications as prescribed by her pain specialist. Return if worsening symptoms or concerns. Please note that there might be incidental findings in your evaluation that are unrelated to the current emergency department visit. Please notify your primary care doctor about this emergency department visit in order to obtain and review all of the testing performed so that these incidental findings can be monitored as needed. If you had an x-ray performed, please understand that some fractures may not be seen on the initial set of x-rays. If your symptoms persist you might need a repeat set of x-rays to check for such a fracture. If you had a laceration evaluated, please understand that foreign bodies such as glass or wood may not be visible to the naked eye or on plain x-rays. If the wound becomes red, swollen, increasingly more painful or if there is any drainage from the wound, please have it reevaluated by a physician for the possibility of a retained foreign body. If you're unable to follow up as outlined in the discharge instructions please return to the emergency department. Thank you for choosing the [facility] Emergency Department for your care. It was a pleasure to serve you today. Departure Forms: Customer Survey General Discharge Information Prescriptions: Current Visit Scripts Ibuprofen 1 TAB PO TID PRN pain #30 TAB (Micheline WALKER,Jacqueline Zambrano) PA/BOAT CAMP OPERATOR Co-Sign Statement Statement: ED Attending supervision documentation- [] I saw and evaluated the patient. I have also reviewed all the pertinent lab results and diagnostic results. I agree with the findings and the plan of care as documented in the PA's/BOAT CAMP OPERATOR's documentation. [X] I have reviewed the ED Record and agree with the PA's/BOAT CAMP OPERATOR's documentation. [] Additions or exceptions (if any) to the PAs/BOAT CAMP OPERATOR's note and plan are summarized below: [] (Rudi De La Rosa DO)
--- NOTE | 2017-11-07 18:53 | RADIOLOGY REPORT ---
EXAMINATIONS: PELVIS 1 VIEW AND RIGHT HIP 2 VIEWS CLINICAL INFORMATION: Right hip pain. COMPARISON: 07/09/2017. TECHNIQUE: A supine view of the pelvis is provided. AP neutral and frog-leg lateral views of the right hip are provided. FINDINGS: No acute fractures are present. There is right hip dysplasia demonstrated with superior subluxation/dislocation to the right hip. There is bilateral coxa valga. Lumbosacral dysraphism is identified. There is stable posterior spinal fusion hardware with a break again identified within the right sacral portion. IMPRESSION: Stable appearance to the pelvis with right hip dysplasia and superior subluxation/dislocation. No acute injury identified.
[2017-11-07 18:55] VITALS: BP 154/67
[2017-11-07] MEDS ORDERED: IBUPROFEN800 M1 PO (19:29)
[2017-11-09] MEDS ORDERED: CYCLOBENZAPRINE10 M1 PO (19:37)
== END 2017-11-07 19:38 ==
LOC: ERH 17:00
DX: M25.551 Pain in right hip (principal); Q65.89 Other specified congenital deformities of hip
CPT/HCPCS: 72170; 73502-RT; 96372; J1885